=== PATIENT | male | born 1985 | race Hispanic/Latino ===

== ENCOUNTER 2017-07-21 00:02 | Emergency (ER) | payer OTHER ==
[2017-07-21] MEDS ORDERED: NA CHLORIDE 0.9% 1,000 ML ONE (00:10)
[2017-07-21 00:37] LABS: Absolute Lymphocytes (CBC) 3.9 K/uL (0.7-4.9); Absolute Monocytes 0.7 K/uL (0.1-1.3); Absolute Neutrophil 3.7 K/uL (1.8-8.0); Basophils % 0.7 % (0-1.3); Eosinophils % 2.1 % (0-4.4); Hematocrit 41.4 % (39.6-49.0); Lymphocytes % 45.8 % (15.3-44.8); MCH 31.1 pg (27.0-35.0); MCV 90.9 fL (80-100); Monocytes % 7.7 % (3.3-12.3); RBC Red Blood Cell Count 4.56 M/uL (4.33-5.43)
[2017-07-21 00:41] LABS: Barbiturates NEGATIVE; Benzodiazepines NEGATIVE; Cocaine NEGATIVE; METHAMPHETAM NEGATIVE; Opiates NEGATIVE; Phencyclidine NEGATIVE; THC Cannibis POSITIVE
[2017-07-21 00:41] LABS: Urine Blood NEGATIVE (NEG); Urine Glucose NEGATIVE (NEG); Urine Protein 1+ (NEG); Urine Specific Gravity 1.025 (1.005-1.030)
[2017-07-21 00:42] LABS: Protime INR 1.12
[2017-07-21 00:47] LABS: Bicarbonate 29 mEq/L (21-31); Glucose Level 99 mg/dL (65-120); Potassium 3.9 mEq/L (3.6-5.0); Sodium Level 138 mEq/L (135-145)
[2017-07-21 00:54] LABS: ALT/SGPT 13 IU/L (10-60); AST/SGOT 16 IU/L (10-42); Albumin 4.2 g/dL (3.2-5.5); Alkaline Phosphatase 105 IU/L (42-121); BUN Blood Urea Nitrogen 16 mg/dL (6-20); Bilirubin Direct 0.1 mg/dL (0-0.2); Bilirubin Total 0.5 mg/dL (0.3-1.2); Protein, Total 6.9 g/dL (6.0-8.3)
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
--- NOTE | 2017-07-21 01:40 | EDPHYS ---
Physician Documentation [facility] Name: Raheem Feliz Age: 32 yrs Sex: Male : 1985 Arrival Date: 07/21/2017 Time: 00:04 Bed 3 Private MD: ED Physician Feng Alba HPI: 07/21 04:43 This 32 yrs old Male presents to ER via EMS with complaints of Overdose. gs 04:43 The patient presents to the emergency department after a known overdose, that was gs accidental. Context: Method: the patient has a confirmed or suspected ingestion, KEPPRA, SAID FELT BAD LIKE WAS GOING TO HAVE SEIZURE SO KEPT TAKING UNKNOWN AMOUNT OF KEPPRA. Associated signs and symptoms: Pertinent negatives: visual hallucinations, - SUICIDAL IDEATION. Severity of symptoms: At their worst the symptoms were moderate in the emergency department the symptoms are unchanged. The patient has experienced similar episodes in the past, a few times. Historical: - Allergies: 00:11 No Known Allergies; fc - Home Meds: 00:11 Keppra 750 mg Oral tab [Active]; fc - PMHx: 00:11 Hypertension; Seizures; fc - PSHx: 00:11 None; trach; PEG insertion and removal; fc - Immunization history:: Last tetanus immunization: unknown. - Social history:: Smoking status: Patient uses tobacco products, smokes one pack cigarettes per day. Patient uses alcohol, occasionally. Patient/guardian denies using street drugs. ROS: 04:43 All other systems are negative. gs Exam: 04:43 Head/Face: Normocephalic, atraumatic. Eyes: Pupils equal round and reactive to light, gs extra-ocular motions intact. Lids and lashes normal. Conjunctiva and sclera are non-icteric and not injected. Cornea within normal limits. Periorbital areas with no swelling, redness, or edema. ENT: Nares patent. No nasal discharge, no septal abnormalities noted. Tympanic membranes are normal and external auditory canals are clear. Oropharynx with no redness, swelling, or masses, exudates, or evidence of obstruction, uvula midline. Mucous membranes moist. Neck: Trachea midline, no thyromegaly or masses palpated, and no cervical lymphadenopathy. Supple, full range of motion without nuchal rigidity, or vertebral point tenderness. No Meningismus. Chest/axilla: Normal chest wall appearance and motion. Nontender with no deformity. No lesions are appreciated. Cardiovascular: Regular rate and rhythm with a normal S1 and S2. No gallops, murmurs, or rubs. Normal PMI, no JVD. No pulse deficits. Respiratory: Lungs have equal breath sounds bilaterally, clear to auscultation and percussion. No rales, rhonchi or wheezes noted. No increased work of breathing, no retractions or nasal flaring. Abdomen/GI: Soft, non-tender, with normal bowel sounds. No distension or tympany. No guarding or rebound. No evidence of tenderness throughout. Back: No spinal tenderness. No costovertebral tenderness. Full range of motion. Skin: Warm, dry with normal turgor. Normal color with no rashes, no lesions, and no evidence of cellulitis. 04:43 MS/ Extremity: Pulses equal, no cyanosis. Neurovascular intact. Full, normal range of motion. 04:43 Constitutional: The patient appears lethargic. 04:43 ECG was reviewed by the Attending Physician. 04:43 Neuro: Orientation: Not oriented to place, time, Cranial nerves: no acute changes, Motor: moves all fours, strength is 5/5 in all extremities, Sensation: no obvious gross deficits. Vital Signs: 07/20 23:55 BP 148 / 78; Pulse 68; Resp 14; Temp 97.1(A); Pulse Ox 100% on R/A; Weight 86.18 kg fc (R); Height 6 ft. 2 in. (187.96 cm) (R); Pain 0/10; 07/21 00:52 BP 144 / 57; Pulse 68; Resp 16 S; Pulse Ox 100% on R/A; Pain 0/10; jd3 01:40 BP 135 / 85; Pulse 58; Resp 17 S; Pulse Ox 100% on R/A; Pain 0/10; jd3 07/20 23:55 Body Mass Index 24.39 (86.18 kg, 187.96 cm) MDM: 00:05 Patient medically screened. gs 04:43 Differential diagnosis: polypharmacy, over medication, intracranial hemorrhage. Data gs reviewed: vital signs, nurses notes. Response to treatment: the patient's symptoms have resolved after treatment, the patient's condition has returned to base line, the patient is now symptom free, STEADY ON FEET GCS 15, NOW COMPLETELY AWAKE WANTS TO GO NOW FAMILY [place] RISK BENEFITS OF STAYING,LEAVING, AMA, and as a result, I will discharge patient. 07/21 00:06 Order name: Acetaminophen 07/21 00:06 Order name: Basic Metabolic Panel 07/21 00:06 Order name: CBC with Diff; Complete Time: 01:25 07/21 00:06 Order name: ETOH Level 07/21 00:06 Order name: Hepatic Function 07/21 00:06 Order name: PT-INR; Complete Time: 01:25 07/21 00:06 Order name: Salicylate 07/21 00:06 Order name: Urine Drug Screen; Complete Time: 01:25 07/21 00:06 Order name: EKG; Complete Time: 00:07 07/21 00:06 Order name: EKG - Nurse/Tech; Complete Time: 00:12 07/21 00:06 Order name: IV Saline Lock; Complete Time: 00:09 07/21 00:06 Order name: CT Head Brain wo Cont 07/21 00:17 Order name: Urine Dipstick--Ancillary (enter results); Complete Time: 01:25 07/21 00:06 Order name: Labs collected and sent; Complete Time: 00:13 07/21 00:06 Order name: Urine Dipstick-Ancillary (obtain specimen); Complete Time: 00:09 gs EC:43 Rate is 82 beats/min. Rhythm is regular. CO interval is normal. QRS interval is normal. gs T waves are Normal. No ST changes noted. Clinical impression: Normal ECG. Interpreted by me. Administered Medications: 00:09 Drug: NS 0.9% 1000 ml Route: IV; Rate: 1 bolus; Site: right antecubital; lp1 01:58 Follow up: Response: No adverse reaction; IV Status: Completed infusion; IV Intake: jd3 1000ml Disposition: 07/21/17 01:40 Patient has left against medical advice. Impression: Adverse effect of mixed antiepileptics. - Patients states they are going to Home. - Condition is Stable. - Discharge Instructions: Overdose, Accidental. Follow up: Private Physician; When: 2 - 3 days; Reason: Re-evaluation by your physician. - Problem is new. - Symptoms have improved. Signatures: Dispatcher [employer] EDMS Freedman Page, RN RN fc Elvia Shepard RN RN lp1 Feng Alba MD MD Jefry Canchola RN RN jd3
[2017-07-21 03:47] LABS: Salicylates Level < 4.0 mg/dl (<30)
[2017-07-21 03:48] LABS: Alcohol Serum/Plasma < 10 mg/dl
--- NOTE | 2017-07-21 09:14 | EKG ---
Test Date: 2017-07-21 Test Time: 00:54:37 Electronic Scanner Operator: SIVAKUMAR MEASUREMENT RESULTS: Intervals: Rate: 82 MT: 158 QRSD: 82 QT: 366 QTc: 427 [place]: P: 79 MT: 158 QRS: 91 T: 68 INTERPRETIVE STATEMENTS: Normal sinus rhythm Rightward axis Borderline ECG Compared to ECG 07/21/2017 00:54:09 Right-axis deviation now present Electronically Signed On 07-21-17 09:13:42 CDT by Mike Laughlin
--- NOTE | 2017-07-21 09:14 | RAD REPORT ---
EXAM DESCRIPTION: CT - Head Brain Wo Cont - 07/21/2017 8:19 am CLINICAL HISTORY: Coma/unresponsive COMPARISON: May 2016 TECHNIQUE: Computed axial tomography of the head was obtained. IV contrast was not requested. A prel iminary report was generated by [employer] and reviewed prior to this dictation All CT scans are performed using dose optimization technique as appropriate and may include automated exposure control or mA/KV adjustment according to patient size. FINDINGS: An intracranial bleed is not seen . The ventricles are normal in caliber. No extra-axial fluid collection is noted. Fluid within the sinuses/ mastoids is not seen. IMPRESSION: No acute intracranial abnormality is seen. If patient's symptoms persist MRI of the bra in would be recommended.
--- NOTE | 2017-07-21 09:15 | EKG ---
Test Date: 2017-07-21 Test Time: 00:54:09 Aircraft Seat Upholsterer: SIVAKUMAR MEASUREMENT RESULTS: Intervals: Rate: 74 ND: 160 QRSD: 76 QT: 376 QTc: 417 [place]: P: ND: 160 QRS: 85 T: 65 INTERPRETIVE STATEMENTS: Normal sinus rhythm Normal ECG Compared to ECG 06/03/2017 11:32:36 No significant changes Electronically Signed On 07-21-17 09:13:43 CDT by Mike Laughlin
== END 2017-07-21 01:58 | disposition left against medical advice (07) ==
LOC: ER 00:02
DX: T42.6X5A Adverse effect of other antiepileptic and sedative-hypnotic drugs, initial encounter (principal); Y92.009 Unspecified place in unspecified non-institutional (private) residence as the place of occurrence of the external cause; I10 Essential (primary) hypertension; F17.210 Nicotine dependence, cigarettes, uncomplicated
CPT/HCPCS: 36415; 70450; 80048; 80076; 80307; 80320; 80329; 81003; 85025; 85610; 93005; 96360; 96361; 99291; 99292; J7030

== ENCOUNTER 2017-09-29 10:54 | Emergency (ER) | payer OTHER ==
[2017-09-29] MEDS ORDERED: LORazepam 2 MG/ML VIAL ONE (11:37)
[2017-09-29] MEDS ORDERED: NA CHLORIDE 0.9% 1,000 ML ONE (11:37)
[2017-09-29 12:12] LABS: Absolute Lymphocytes (CBC) 1.6 K/uL (0.7-4.9); Absolute Monocytes 0.4 K/uL (0.1-1.3); Absolute Neutrophil 6.2 K/uL (1.8-8.0); Basophils % 0.5 % (0-1.3); Eosinophils % 0.2 % (0-4.4); Hematocrit 43.6 % (39.6-49.0); MCH 30.3 pg (27.0-35.0); MCV 91.1 fL (80-100); MPV 7.9 fL (7.6-11.3); Monocytes % 4.6 % (3.3-12.3); RBC Red Blood Cell Count 4.79 M/uL (4.33-5.43)
[2017-09-29 12:16] LABS: Protime INR 1.13
[2017-09-29 12:22] LABS: ALT/SGPT 27 U/L (12-78); AST/SGOT 27 U/L (15-37); Albumin 4.5 g/dL (3.4-5.0); Alkaline Phosphatase 132 U/L (45-117); BUN Blood Urea Nitrogen 17 mg/dL (7-18); Bicarbonate 29 mmol/L (21-32); Bilirubin Direct 0.2 mg/dL (0-0.2); CKMB Creatine Kinase MB 1.3 ng/mL (0.3-3.6); Creatine Phosphokinase 292 U/L (39-308); Glucose Level 83 mg/dL (74-106); NT PRO-BNP 74 pg/mL (<125); Protein, Total 7.7 g/dL (6.4-8.2); Sodium Level 136 mmol/L (136-145)
--- NOTE | 2017-09-29 12:32 | RAD REPORT ---
EXAM DESCRIPTION: CT - Head Brain Wo Cont - 09/29/2017 12:17 pm CLINICAL HISTORY: Head injury with head pain COMPARISON: July 2017 TECHNIQUE: Computed axial tomography of the head was obtained. IV contrast was not requested. All CT scans are performed using dose optimization technique as appropriate and may include automated exposure control or mA/KV adjustment according to patient size. FINDINGS: Mild frontal scalp swelling is present without visualization of a skull fracture. An intracranial bleed is not seen . The ventricles are normal in caliber. No extra-axial fluid collection is noted. Fluid within the sinuses/ mastoids is not seen. IMPRESSION: No acute intracranial abnormality is seen. If patient's symptoms persist MRI of the bra in would be recommended.
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
--- NOTE | 2017-09-29 12:40 | EDPHYS ---
Physician Documentation [facility] Name: Raheem Feliz Age: 32 yrs Sex: Male : 1985 Arrival Date: 09/29/2017 Time: 10:59 Bed 7 Private MD: ED Physician Cholo Méndez HPI: 09/29 11:10 This 32 yrs old Male presents to ER via Law Enforcement with complaints of kav Head Injury Without LOC-Adult. 11:38 The patient or guardian reports tenderness. The complaints affect the left side of the kav back of head, right frontal area and right side of the back of head. Context of injury: The problem was sustained at time of arrest, resulted from "...being hand cuffed and arrested". Onset: The symptoms/episode began/occurred acutely, 1 day(s) ago. Associated signs and symptoms: Loss of consciousness: This patient experience a loss of consciousness, that was brief, for an unknown period of time, Pertinent positives: loss of conciousness, headache, nausea, Pertinent negatives: double vision, neck pain, seizure, generalized weakness. Severity of symptoms: At their worst the symptoms were moderate, just prior to arrival, this morning. The patient has not experienced similar symptoms in the past. The patient has not recently seen a physician. Patient presents to ED accompanied by [place] [employer]. He reports "...1. scalp tenderness 2. + LOC when hand-cuffed and arrested". 11:45 Patient reports PMHX: HTN and Seizures. Check with [facility] reveals that patient bienvenido has not had prescription filled since August 2017: Keppra and Lisinopril 20 mg po q daily. Historical: - Allergies: 11:05 No Known Allergies; aa5 - Home Meds: 11:03 Keppra 750 mg Oral tab 2 times per day [Active]; oxcarbazepine 300 mg oral tab 1 tab 2 iw times per day [Active]; lisinopril 20 mg Oral tab 1 tab once daily [Active]; - PMHx: 11:05 Hypertension; Seizures; "I was in a coma for about 6 months"; aa5 - PSHx: 11:05 None; PEG insertion and removal; tracheostomy reversal; aa5 - Immunization history:: Adult Immunizations unknown. - Social history:: Smoking status: Patient uses tobacco products, smokes one pack cigarettes per day. - Ebola Screening: : No symptoms or risks identified at this time. - Family history:: not pertinent. - Hospitalizations: : No recent hospitalization is reported. - History obtained from: Jayy PATTEN. ROS: 11:45 Constitutional: Negative for fever, chills, and weight loss, Eyes: Negative for injury, kav pain, redness, and discharge, ENT: Negative for injury, pain, and discharge, Neck: Negative for injury, pain, and swelling, Cardiovascular: Negative for chest pain, palpitations, and edema, Respiratory: Negative for shortness of breath, cough, wheezing, and pleuritic chest pain, Abdomen/GI: Negative for abdominal pain, nausea, vomiting, diarrhea, and constipation, Back: Negative for injury and pain, : Negative for injury, bleeding, discharge, and swelling, MS/Extremity: Negative for injury and deformity, Skin: Negative for injury, rash, and discoloration, Psych: Negative for depression, anxiety, suicide ideation, homicidal ideation, and hallucinations, Allergy/Immunology: Negative for hives, rash, and allergies, Endocrine: Negative for neck swelling, polydipsia, polyuria, polyphagia, and marked weight changes, Hematologic/Lymphatic: Negative for swollen nodes, abnormal bleeding, and unusual bruising. 11:45 Neuro: Positive for headache. Exam: 11:45 Constitutional: This is a well developed, well nourished patient who is awake, alert, kav and in no acute distress. Head/Face: Normocephalic, atraumatic. Eyes: Pupils equal round and reactive to light, extra-ocular motions intact. Lids and lashes normal. Conjunctiva and sclera are non-icteric and not injected. Cornea within normal limits. Periorbital areas with no swelling, redness, or edema. ENT: Nares patent. No nasal discharge, no septal abnormalities noted. Tympanic membranes are normal and external auditory canals are clear. Oropharynx with no redness, swelling, or masses, exudates, or evidence of obstruction, uvula midline. Mucous membranes moist. Neck: Trachea midline, no thyromegaly or masses palpated, and no cervical lymphadenopathy. Supple, full range of motion without nuchal rigidity, or vertebral point tenderness. No Meningismus. Chest/axilla: Normal chest wall appearance and motion. Nontender with no deformity. No lesions are appreciated. Cardiovascular: Regular rate and rhythm with a normal S1 and S2. No gallops, murmurs, or rubs. Normal PMI, no JVD. No pulse deficits. Respiratory: Lungs have equal breath sounds bilaterally, clear to auscultation and percussion. No rales, rhonchi or wheezes noted. No increased work of breathing, no retractions or nasal flaring. Abdomen/GI: Soft, non-tender, with normal bowel sounds. No distension or tympany. No guarding or rebound. No evidence of tenderness throughout. Back: No spinal tenderness. No costovertebral tenderness. Full range of motion. Skin: Warm, dry with normal turgor. Normal color with no rashes, no lesions, and no evidence of cellulitis. MS/ Extremity: Pulses equal, no cyanosis. Neurovascular intact. Full, normal range of motion. Psych: Awake, alert, with orientation to person, place and time. Behavior, mood, and affect are within normal limits. 11:45 Neuro: Exam negative for acute changes, focal neuro deficits, motor deficits, sensory deficits, cerebellar deficits. Vital Signs: 11:05 BP 157 / 82; Pulse 87; Resp 16 S; Temp 98.6(O); Pulse Ox 98% on R/A; Weight 90.72 kg aa5 (R); Height 6 ft. 2 in. (187.96 cm) (R); Pain 8/10; 12:00 BP 154 / 80; Pulse 88; Resp 16 S; Pulse Ox 98% on R/A; aa5 12:55 BP 150 / 80; Pulse 85; Resp 16 S; Pulse Ox 99% on R/A; aa5 11:05 Body Mass Index 25.68 (90.72 kg, 187.96 cm) aa5 Fela Coma Score: 11:38 Eye Response: spontaneous(4). Verbal Response: oriented(5). Motor Response: obeys [facility] commands(6). Total: 15. MDM: 11:10 Medical screening is not applicable. [facility] 12:47 Data reviewed: vital signs, nurses notes, lab test result(s), EKG, radiologic studies, kav CT scan. 09/29 11:31 Order name: Basic Metabolic Panel [facility] 09/29 11:31 Order name: CBC with Diff; Complete Time: 12:36 09/29 12:36 Interpretation: Normal except: SERAFIN% 74.7. 09/29 11:31 Order name: Ckmb; Complete Time: 12:37 v 09/29 12:37 Interpretation: Within normal limits. 09/29 11:31 Order name: CPK; Complete Time: 12:37 v 09/29 12:37 Interpretation: Within normal limits. 09/29 11:31 Order name: LFT's; Complete Time: 12:36 v 09/29 12:36 Interpretation: Normal except: ALK 132. 09/29 11:31 Order name: Magnesium; Complete Time: 12:36 v 09/29 12:36 Interpretation: Within normal limits. 09/29 11:31 Order name: NT PRO-BNP; Complete Time: 12:36 v 09/29 12:36 Interpretation: Within normal limits. 09/29 11:31 Order name: PT-INR; Complete Time: 12:37 v 09/29 12:37 Interpretation: Normal except: PT 13.3. 09/29 11:31 Order name: Ptt, Activated; Complete Time: 12:36 09/29 12:36 Interpretation: Within normal limits. 09/29 11:31 Order name: Troponin (emerg Dept Use Only); Complete Time: 12:33 09/29 12:33 Interpretation: Within normal limits. 09/29 11:31 Order name: XRAY Chest (1 view) 09/29 11:31 Order name: CT Head Brain wo Cont; Complete Time: 12:35 v 09/29 12:35 Interpretation: Abnormal. 09/29 11:31 Order name: Basic Metabolic Panel; Complete Time: 12:32 EDMS 09/29 12:32 Interpretation: Within normal limits. 09/29 11:31 Order name: EKG; Complete Time: 11:32 v 09/29 11:31 Order name: Cardiac monitoring; Complete Time: 11:33 v 09/29 11:31 Order name: EKG - Nurse/Tech; Complete Time: 11:58 v 09/29 11:31 Order name: IV Saline Lock; Complete Time: 11:58 v 09/29 11:31 Order name: Labs collected and sent; Complete Time: 11:58 09/29 11:31 Order name: O2 Per Protocol; Complete Time: 11:33 kav 09/29 11:31 Order name: O2 Sat Monitoring; Complete Time: 11:33 kav Administered Medications: 11:50 Drug: NS 0.9% 1000 ml Route: IV; Rate: 1000 ml; Site: right antecubital; aa5 12:30 Follow up: IV Status: Completed infusion aa5 11:50 Drug: Ativan 0.5 mg Route: IVP; Site: right antecubital; aa5 11:55 Follow up: Response: No adverse reaction aa5 Disposition: 13:35 Co-signature as Attending Physician, Cholo Méndez MD I agree with the assessment and kdr plan of care. Disposition: 09/29/17 12:40 Discharged to Home. Impression: Headache, Patient's other noncompliance with medication regimen, Essential (primary) hypertension. - Condition is Stable. - Discharge Instructions: Hypertension, Hgfm-em-Sbow, How to Take Your Blood Pressure, Hehy-hu-Hlzo, DASH Eating Plan, Managing Your High Blood Pressure. - Prescriptions for Lisinopril 20 mg Oral Tablet - take 1 tablet by ORAL route once daily; 20 tablet. - Medication Reconciliation Form, Thank You Letter form. - Follow up: Private Physician; When: 5 - 6 days; Reason: If symptoms return, Recheck today's complaints, Continuance of care, Re-evaluation by your physician. - Problem is new. - Symptoms have improved. - Notes: f[facility]u [facility] for further evaluation and treatment of reported seizure disorder you are being discharged with your anti-hypertensive medication: Lisinopril 20 mg po q daily patient has not picked up HTN med or Seizure Disorder medications since July from [facility] discussed this plan with the Hot Knife Foxing Cutter, Dr. Méndez and he is in agreement with this plan of care Signatures: Dispatcher [employer] EDMS Cholo Méndez MD MD kdr Vern, Katherine, CASING IN LINE SETTER CASING IN LINE SETTER Hawa Morillo, Marielena Lloyd RN, RN RN aa5 Corrections: (The following items were deleted from the chart) 12:36 12:35 No acute disease. [facility] 13:12 12:40 09/29/2017 12:40 Discharged to Home. Impression: Headache; Patient's other aa5 noncompliance with medication regimen; Essential (primary) hypertension. Condition is Stable. Forms are Medication Reconciliation Form, Thank You Letter, Antibiotic Education, Prescription Opioid Use. Follow up: Private Physician; When: 5 - 6 days; Reason: If symptoms return, Recheck today's complaints, Continuance of care, Re-evaluation by your physician. Problem is new. Symptoms have improved. kav
--- NOTE | 2017-09-29 12:57 | RAD REPORT ---
[facility]50 [facility] CLINICAL HISTORY: Chest pain COMPARISON: June 2017 FINDINGS: The lung bases are not included in the field of view and are not evaluated. The visualized lungs appear clear of acute infiltrate. The heart is normal size IMPRESSION: No acute abnormalities displayed
--- NOTE | 2017-09-30 06:26 | EKG ---
Test Date: 2017-09-29 Test Time: 11:45:44 Human Intelligence: MEASUREMENT RESULTS: Intervals: Rate: 84 NC: 144 QRSD: 80 QT: 344 QTc: 406 [place]: P: 74 NC: 144 QRS: 95 T: 68 INTERPRETIVE STATEMENTS: Normal sinus rhythm Rightward axis Borderline ECG Compared to ECG 07/21/2017 00:54:37 No significant changes Electronically Signed On 09-30-17 06:25:38 CDT by Teddy Small
== END 2017-09-29 13:12 | disposition home or self-care (01) ==
LOC: ER 10:54
DX: Z91.14 Patient's other noncompliance with medication regimen (principal); I10 Essential (primary) hypertension; F17.210 Nicotine dependence, cigarettes, uncomplicated; G40.909 Epilepsy, unspecified, not intractable, without status epilepticus
CPT/HCPCS: 36415; 70450; 71045; 80048; 80076; 82550; 82553; 83735; 83880; 84484; 85025; 85610; 85730; 93005; 96361; 96374; 99284; J7030

== ENCOUNTER 2018-11-12 23:09 | Emergency (ER) | payer OTHER ==
--- OUTSIDE RECORDS SUMMARY | 2018-11-12 23:10 | XMS REPORT ---
:1985 [facility] [address] [place] [address] Care Team Providers Name Role Phone Unavailable Unavailable Unavailable Problems This patient has no known problems. Allergies, Adverse Reactions, Alerts This patient has no known allergies or adverse reactions. Medications This patient has no known medications.
[2018-11-12] MEDS ORDERED: TETANUS & DIPHTHERIA TOX,ADULT 0.5 ML VIAL ONE (23:44)
--- NOTE | 2018-11-13 00:19 | ER ---
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 redness noted to lower right leg with slight swelling. Transition of care: patient was not received from another setting of care. Complicating Factors: There are no complicating factors for this patient. Onset of symptoms is unknown. Risk Assessment: Do you want to hurt yourself or someone else? Patient reports no desire to harm self or others. Initial Sepsis Screen: Does the patient meet any 2 criteria? No. Patient's initial sepsis screen is negative. Does the patient have a suspected source of infection? Yes: Skin breakdown/wound. Care prior to arrival: None. 23:20 Method Of Arrival: Ambulatory ak1 23:20 Acuity: BIBI 3 ak1 Triage Assessment: 23:23 General: Appears in no apparent distress. Behavior is calm, cooperative. Pain: Denies ak1 pain. EENT: No signs and/or symptoms were reported regarding the EENT system. Neuro: Level of Consciousness is awake, alert, obeys commands, Oriented to person, place, time, situation, Shank Pinner are equal bilaterally Moves all extremities. Gait is steady, Speech is normal, Facial symmetry appears normal. Cardiovascular: No deficits noted. Respiratory: No deficits noted. GI: No signs and/or symptoms were reported involving the gastrointestinal system. : No signs and/or symptoms were reported regarding the genitourinary system. Derm: Skin healing lac to right lower leg Skin is red, Skin temperature is warm Wound noted right meza. Musculoskeletal: No signs and/or symptoms reported regarding the musculoskeletal system. Injury Description: Laceration sustained to right meza is jagged, was sustained 2 days ago. Historical: - Allergies: 23:23 No Known Allergies; ak1 - Home Meds: 23:23 Keppra 750 mg Oral tab 2 times per day [Active]; lisinopril 20 mg Oral tab 1 tab once ak1 daily [Active]; oxcarbazepine 300 mg Oral tab 1 tab 2 times per day [Active]; - PMHx: 23:23 "I was in a coma for about 6 months"; Hypertension; Seizures; ak1 - PSHx: 23:23 None; PEG insertion and removal; tracheostomy reversal; ak1 - Immunization history:: Adult Immunizations unknown, Last tetanus immunization: unknown. - Social history:: Smoking status: Patient uses tobacco products, smokes one-half pack cigarettes per day. - Ebola Screening: : No symptoms or risks identified at this time. Screenin:27 Abuse screen: Denies threats or abuse. Denies injuries from another. Nutritional ak1 screening: No deficits noted. Tuberculosis screening: No symptoms or risk factors identified. Fall Risk None identified. Assessment: 11/13 00:12 Reassessment: Patient appears in no apparent distress at this time. No changes from ak1 previously documented assessment. Patient and/or family updated on plan of care and expected duration. Pain level reassessed. Patient is alert, oriented x 3, equal unlabored respirations, skin warm/dry/pink. see triage assessment. 00:24 Reassessment: Patient appears in no apparent distress at this time. No changes from ak1 previously documented assessment. Patient and/or family updated on plan of care and expected duration. Pain level reassessed. Patient is alert, oriented x 3, equal unlabored respirations, skin warm/dry/pink. Patient states feeling better. Vital Signs: 11/12 23:20 BP 157 / 81; Pulse 82; Resp 18; Temp 98.5(O); Pulse Ox 100% on R/A; Weight 86.18 kg ak1 (R); Height 6 ft. 1 in. (185.42 cm) (R); Pain 1/10; 11/13 00:25 BP 142 / 83; Pulse 78; Resp 18; Temp 98.0; Pulse Ox 100% on R/A; Pain 0/10; ak1 11/12 23:20 Body Mass Index 25.07 (86.18 kg, 185.42 cm) ak1 ED Course: 11/12 23:13 Patient arrived in ED. ds1 23:20 Dyana Richards, RN is Primary Nurse. ak1 23:20 Arm band placed on Patient placed in an exam room, on a stretcher, on pulse oximetry, ak1 Patient notified of wait time. 23:21 Gautam Wayne NP is PHCP. pm1 23:21 Feng Alba MD is Attending Physician. pm1 23:22 Triage completed. ak1 23:27 Patient has correct armband on for positive identification. Bed in low position. Call ak1 light in reach. Side rails up X 1. Adult w/ patient. Pulse ox on. NIBP on. 08 00:00 X-ray completed. Portable x-ray completed in exam room. Patient tolerated procedure kw well. 00:05 Tib Fib Right XRAY In Process Unspecified. EDMS 00:24 No provider procedures requiring assistance completed. Patient did not have IV access ak1 during this emergency room visit. Administered Medications: 11/12 23:43 Drug: Tetanus-Diphtheria Toxoid Adult 0.5 ml {Oracle Applications Developer: [employer]. Exp: ak1 07/13/2020. Lot #: [id number]. } Route: IM; Site: right deltoid; 11/13 00:19 Follow up: Response: No adverse reaction ak1 00:18 Drug: Doxycycline 100 mg Route: PO; ak1 00:19 Follow up: Response: No adverse reaction ak1 Outcome: 00:17 Discharge ordered by MD. pm1 00:24 Discharged to home ambulatory, with family. ak1 00:24 Condition: good 00:24 Discharge instructions given to patient, family, Instructed on discharge instructions, follow up and referral plans. Demonstrated understanding of instructions, follow-up care, medications, Prescriptions given X 1. 00:26 Patient left the ED. ak1 Signatures: Dispatcher [employer] [facility] Deanne Howell ds1 Edna Esquivel Amber, RN RN ak1 Gautam Wayne, CHARGE OUT CLERK CHARGE OUT CLERK pm1
--- NOTE | 2018-11-13 00:19 | EDPHYS ---
Physician Documentation [facility] Name: Raheem Feliz Age: 33 yrs Sex: Male : 1985 Arrival Date: 11/12/2018 Time: 23:13 Bed 5 Private MD: ED Physician Feng Alba HPI: 11/13 00:00 This 33 yrs old Male presents to ER via Ambulatory with complaints of pm1 Laceration To Right Leg. 00:00 The patient has a laceration related to: in salt water occurred outdoors, and pm1 laceration on oyster bed shells The injury was accidental. The laceration(s) is(are) located on the right meza. Onset: The symptoms/episode began/occurred 2 day(s) ago. Associated signs and symptoms: Pertinent negatives: deformity, heavy bleeding, numbness distal to injury, suspected foreign body, fever. The patient has not experienced similar symptoms in the past. The patient has not recently seen a physician. Historical: - Allergies: 11/12 23:23 No Known Allergies; ak1 - Home Meds: 23:23 Keppra 750 mg Oral tab 2 times per day [Active]; lisinopril 20 mg Oral tab 1 tab once ak1 daily [Active]; oxcarbazepine 300 mg Oral tab 1 tab 2 times per day [Active]; - PMHx: 23:23 "I was in a coma for about 6 months"; Hypertension; Seizures; ak1 - PSHx: 23:23 None; PEG insertion and removal; tracheostomy reversal; ak1 - Immunization history:: Adult Immunizations unknown, Last tetanus immunization: unknown. - Social history:: Smoking status: Patient uses tobacco products, smokes one-half pack cigarettes per day. - Ebola Screening: : No symptoms or risks identified at this time. ROS: 11/13 00:00 Constitutional: Negative for fever, chills, and weight loss, Eyes: Negative for injury, pm1 pain, redness, and discharge, ENT: Negative for injury, pain, and discharge, Neck: Negative for injury, pain, and swelling, Cardiovascular: Negative for chest pain, palpitations, and edema, Respiratory: Negative for shortness of breath, cough, wheezing, and pleuritic chest pain, Abdomen/GI: Negative for abdominal pain, nausea, vomiting, diarrhea, and constipation, Back: Negative for injury and pain. MS/Extremity: Negative for injury and deformity. Neuro: Negative for headache, weakness, numbness, tingling, and seizure. Skin: Positive for laceration(s), of the right meza. Exam: 00:00 Constitutional: This is a well developed, well nourished patient who is awake, alert, pm1 and in no acute distress. Head/Face: Normocephalic, atraumatic. Neck: Trachea midline, no thyromegaly or masses palpated, and no cervical lymphadenopathy. Supple, full range of motion without nuchal rigidity, or vertebral point tenderness. No Meningismus. Chest/axilla: Normal chest wall appearance and motion. Nontender with no deformity. No lesions are appreciated. Cardiovascular: Regular rate and rhythm with a normal S1 and S2. No gallops, murmurs, or rubs. Normal PMI, no JVD. No pulse deficits. Respiratory: Lungs have equal breath sounds bilaterally, clear to auscultation and percussion. No rales, rhonchi or wheezes noted. No increased work of breathing, no retractions or nasal flaring. Abdomen/GI: Soft, non-tender, with normal bowel sounds. No distension or tympany. No guarding or rebound. No evidence of tenderness throughout. Back: No spinal tenderness. No costovertebral tenderness. Full range of motion. 00:00 Skin: Appearance: normal except for affected area, injury, laceration(s), the wound is approximately 5 cm(s), of the right meza, that can be described as linear, without bleeding, Healing with surrounding redness to approximated edges. Vital Signs: 11/12 23:20 BP 157 / 81; Pulse 82; Resp 18; Temp 98.5(O); Pulse Ox 100% on R/A; Weight 86.18 kg ak1 (R); Height 6 ft. 1 in. (185.42 cm) (R); Pain 1/; 11/13 00:25 BP 142 / 83; Pulse 78; Resp 18; Temp 98.0; Pulse Ox 100% on R/A; Pain 0/10; ak1 11/12 23:20 Body Mass Index 25.07 (86.18 kg, 185.42 cm) ak1 MDM: 11/12 23:21 Patient medically screened. pm1 11/13 00:16 Data reviewed: vital signs. Data interpreted: Pulse oximetry: on room air is 100 %. pm1 Interpretation: normal. Counseling: I had a detailed discussion with the patient and/or guardian regarding: the historical points, exam findings, and any diagnostic results supporting the discharge/admit diagnosis, radiology results, the need for outpatient follow up, to return to the emergency department if symptoms worsen or persist or if there are any questions or concerns that arise at home. 11/12 23:36 Order name: Tib Fib Right XRAY pm1 Administered Medications: 11/12 23:43 Drug: Tetanus-Diphtheria Toxoid Adult 0.5 ml {Stage Director: [employer]. Exp: ak1 07/13/2020. Lot #: [id number]. } Route: IM; Site: right deltoid; 11/13 00:19 Follow up: Response: No adverse reaction ak1 00:18 Drug: Doxycycline 100 mg Route: PO; ak1 00:19 Follow up: Response: No adverse reaction ak1 Disposition: 11/13/18 00:17 Discharged to Home. Impression: Laceration without foreign body, right lower leg. - Condition is Stable. - Discharge Instructions: Laceration Care, Adult. - Prescriptions for Doxycycline Hyclate 100 mg Oral Tablet - take 1 tablet by ORAL route every 12 hours; 20 tablet. - Medication Reconciliation Form, Thank You Letter, Antibiotic Education, Prescription Opioid Use form. - Follow up: Emergency Department; When: As needed; Reason: Worsening of condition. Follow up: Private Physician; When: 2 - 3 days; Reason: Recheck today's complaints, Continuance of care, Re-evaluation by your physician. - Problem is new. - Symptoms have improved. Addendum: 11/15/2018 03:22 Co-signature as Attending Physician, Feng Alba MD. g s Signatures: Dispatcher [employer] EDDyana Watson RN RN ak1 Gautam Wayne NP [employer] pm1 Feng Alba MD MD Corrections: (The following items were deleted from the chart) 11/13 00:26 00:17 11/13/2018 00:17 Discharged to Home. Impression: Laceration without foreign body, ak1 right lower leg. Condition is Stable. Forms are Medication Reconciliation Form, Thank You Letter, Antibiotic Education, Prescription Opioid Use. Follow up: Emergency Department; When: As needed; Reason: Worsening of condition. Follow up: Private Physician; When: 2 - 3 days; Reason: Recheck today's complaints, Continuance of care, Re-evaluation by your physician. Problem is new. Symptoms have improved. pm1
[2018-11-13] MEDS ORDERED: DOXYCYCLINE 100 MG CAP PO ONE (00:20)
--- NOTE | 2018-11-13 08:15 | RAD REPORT ---
EXAM DESCRIPTION: RAD - Tib Fib Right - 11/13/2018 12:04 am CLINICAL HISTORY: laceration Pain and swelling to right leg COMPARISON: No comparisons FINDINGS: Mild soft tissue swelling is seen along the medial aspect of the right leg. No fracture or radiopaque foreign body seen.
== END 2018-11-13 00:26 | disposition home or self-care (01) ==
LOC: ER 23:09
DX: S81.811A Laceration without foreign body, right lower leg, initial encounter (principal); W45.8XXA Other foreign body or object entering through skin, initial encounter; Z23 Encounter for immunization; I10 Essential (primary) hypertension; F17.210 Nicotine dependence, cigarettes, uncomplicated
CPT/HCPCS: 90471; 90714; 99284

== ENCOUNTER 2019-07-12 17:36 | Emergency (ER) | payer OTHER ==
--- OUTSIDE RECORDS SUMMARY | 2019-07-12 17:38 | XMS REPORT ---
:1985 Author Organization [facility] t Address [address] [place] [address] Care Team Providers Name Role Phone Unavailable Unavailable Unavailable Problems This patient has no known problems. Allergies, Adverse Reactions, Alerts This patient has no known allergies or adverse reactions. Medications This patient has no known medications.
[2019-07-12 18:22] LABS: Absolute Lymphocytes (CBC) 2.3 K/uL (0.7-4.9); Basophils % 0.3 % (0-1.3); Hematocrit 45.2 % (39.6-49.0); Lymphocytes % 16.7 % (15.3-44.8); MPV 7.6 fL (7.6-11.3); RBC Red Blood Cell Count 4.95 M/uL (4.33-5.43)
[2019-07-12 18:46] LABS: Barbiturates NEGATIVE (NEGATIVE); Benzodiazepines NEGATIVE (NEGATIVE); Cocaine NEGATIVE (NEGATIVE); METHAMPHETAM NEGATIVE (NEGATIVE); Methadone NEGATIVE (NEGATIVE); Opiates NEGATIVE (NEGATIVE); Phencyclidine NEGATIVE (NEGATIVE); THC Cannibis NEGATIVE (NEGATIVE)
[2019-07-12 18:54] LABS: Sodium Level 127 mmol/L (136-145)
[2019-07-12 18:55] LABS: ALT/SGPT 24 U/L (12-78); AST/SGOT 18 U/L (15-37); Albumin 4.1 g/dL (3.4-5.0); Alkaline Phosphatase 108 U/L (45-117); BUN Blood Urea Nitrogen 7 mg/dL (7-18); Bicarbonate 18 mmol/L (21-32); Bilirubin Direct 0.1 mg/dL (0-0.2); Bilirubin Total 0.4 mg/dL (0.2-1.0); Glucose Level 84 mg/dL (74-106); Potassium 3.3 mmol/L (3.5-5.1); Protein, Total 7.6 g/dL (6.4-8.2)
[2019-07-12] MEDS ORDERED: levETIRAcetam 1,000 MG in NA CHLORIDE 0.9% 100 ML IV ONE (19:00)
--- NOTE | 2019-07-12 19:26 | ER ---
Nurse's Notes [facility] Name: Raheem Feliz Age: 34 yrs Sex: Male : 1985 Arrival Date: 07/12/2019 Time: 17:42 Bed 16 Private MD: Diagnosis: Epilepsy and recurrent seizures;Hypo-osmolality and hyponatremia Presentation: 07/11 17:42 Chief complaint: EMS states: Pt was with mother in her car and was a passenger when he ca1 had a seizure. Mother reports 2 seizures within 45 minutes, reports history of seizures but has not had one in 12 years. Takes unknown seizure medications but has ran out of it for a while now. BP 172/82. Temp 98.2, P 102, R 16. Coronavirus screen: Proceed with normal triage. Patient denies a cough. Patient denies shortness of breath or difficulty breathing. Patient denies measured and/or subjective temperature greater than 100.4F prior to today's visit. Patient denies travel on a cruise ship or to a country the [facility] currently lists as an affected area. Patient denies contact with known and/or suspected case of COVID-19. Ebola Screen: Patient negative for fever greater than or equal to 101.5 degrees Fahrenheit, and additional compatible Ebola Virus Disease symptoms Patient denies exposure to infectious person. Patient denies travel to an Ebola-affected area in the 21 days before illness onset. No symptoms or risks identified at this time. Initial Sepsis Screen: Does the patient meet any 2 criteria? No. Patient's initial sepsis screen is negative. Does the patient have a suspected source of infection? No. Patient's initial sepsis screen is negative. Risk Assessment: Do you want to hurt yourself or someone else? Patient reports no desire to harm self or others. Onset of symptoms was July 12, 2019. 17:42 Method Of Arrival: EMS: [facility] ca1 17:42 Acuity: BIBI 3 ca1 Triage Assessment: 17:49 General: Appears in no apparent distress. comfortable, Behavior is calm, cooperative, ca1 appropriate for age. Pain: Denies pain. EENT: No signs and/or symptoms were reported regarding the EENT system. Neuro: Level of Consciousness is awake, alert, obeys commands, Oriented to person, place, situation. Cardiovascular: Heart tones S1 S2 present Capillary refill < 3 seconds Patient's skin is warm and dry. Rhythm is sinus rhythm. Respiratory: Airway is patent Respiratory effort is even, unlabored, Respiratory pattern is regular, symmetrical, Breath sounds are clear bilaterally. GI: Abdomen is round non-distended, Bowel sounds present X 4 quads. Abd is soft and non tender X 4 quads. : No signs and/or symptoms were reported regarding the genitourinary system. Derm: Skin is intact, is healthy with good turgor, Skin is pink, warm \\T\\ dry. Musculoskeletal: Circulation, motion, and sensation intact. Capillary refill < 3 seconds. Historical: - Allergies: 17:49 No Known Allergies; ca1 - PMHx: 17:49 "I was in a coma for about 6 months"; Hypertension; Seizures; ca1 - PSHx: 17:49 PEG insertion and removal; tracheostomy reversal; ca1 - Immunization history:: Adult Immunizations not up to date, Flu vaccine is not up to date. - Social history:: Smoking status: Patient reports the use of cigarette tobacco products, smokes one pack cigarettes per day. Screenin:50 Abuse screen: Denies threats or abuse. Denies injuries from another. Nutritional ca1 screening: No deficits noted. Tuberculosis screening: No symptoms or risk factors identified. Fall Risk Secondary diagnosis (15 points) seizures. Assessment: 17:50 Reassessment: SEE TRIAGE NOTES. ca1 18:50 Reassessment: Patient appears in no apparent distress at this time. No changes from ca1 previously documented assessment. Patient and/or family updated on plan of care and expected duration. Pain level reassessed. Patient is alert, oriented x 3, equal unlabored respirations, skin warm/dry/pink. 19:30 Reassessment: Patient appears in no apparent distress at this time. Patient is alert, ca1 oriented x 3, equal unlabored respirations, skin warm/dry/pink. Vital Signs: 17:42 BP 128 / 75; Pulse 94; Resp 16 S; Temp 98.3(O); Pulse Ox 95% on R/A; Weight 83.01 kg ca1 (R); Height 6 ft. 1 in. (185.42 cm) (R); Pain 0/10; 18:50 BP 128 / 82; Pulse 87; Resp 16 S; Pulse Ox 96% on R/A; ca1 19:30 BP 130 / 77; Pulse 86; Resp 16 S; Pulse Ox 96% on R/A; ca1 17:42 Body Mass Index 24.14 (83.01 kg, 185.42 cm) ca1 Fela Coma Score: 17:49 Eye Response: spontaneous(4). Verbal Response: oriented(5). Motor Response: obeys ca1 commands(6). Total: 15. ED Course: 17:42 Patient arrived in ED. ca1 17:46 Osman Knox PA is PHCP. [facility] 17:46 Cholo Méndez MD is Attending Physician. [facility] 17:47 Triage completed. ca1 17:47 Keira García, YENI is Primary Nurse. ca1 17:49 Arm band placed on right wrist. ca1 17:50 Patient has correct armband on for positive identification. Bed in low position. Call ca1 light in reach. Side rails up X2. Seizure precautions initiated. hall monitor on. Pulse ox on. NIBP on. Warm blanket given. 18:00 1800 seizure pads applied to pt bed. lt1 18:00 No provider procedures requiring assistance completed. Maintain EMS IV. Dressing ca1 intact. Good blood return noted. Site clean \\T\\ dry. Gauge \\T\\ site: G22 LFA. 18:04 Initial lab(s) drawn, by me, sent to lab. Urine collected: clean catch specimen, clear. lt1 19:25 Trev Jang MD is Hospitalizing Provider. [facility] 19:46 IV discontinued, intact, bleeding controlled, No redness/swelling at site. Pressure ca1 dressing applied. Administered Medications: 18:47 Drug: Keppra 1000 mg Route: IV; Rate: calculated rate; Site: right forearm; ca1 19:10 Follow up: Response: No adverse reaction; IV Status: Completed infusion ca1 Outcome: 19:25 Decision to Hospitalize by Provider. [facility] 19:46 AMA AMA form signed [facility] 19:46 Condition: improved 19:52 Patient left the ED. ca1 Signatures: Osman Knox PA PA [facility] Keira García, RN RN ca1 Lamar Mercado lt1
--- NOTE | 2019-07-12 19:26 | EDPHYS ---
Physician Documentation [facility] Name: Raheem Feliz Age: 34 yrs Sex: Male : 1985 Arrival Date: 07/12/2019 Time: 17:42 Bed 16 Private MD: ED Physician Cholo Méndez HPI: 07/11 17:46 This 34 yrs old Male presents to ER via EMS with complaints of Seizure. [facility] 17:46 The patient presents after having a single isolated seizure. Character of seizure(s): jmm Loss of consciousness: the patient experienced loss of consciousness, Motor activity: generalized, Incontinence: none, Apnea: the patient did not experience apnea. Seizure onset: just prior to arrival. Seizure Hx: Seizure medications: Keppra. Associated injury: The patient did not suffer any apparent associated injury. Patient states he has not recently taken his medication. Patient states taking keppra and another unknown medications. . Historical: - Allergies: 17:49 No Known Allergies; ca1 - PMHx: 17:49 "I was in a coma for about 6 months"; Hypertension; Seizures; ca1 - PSHx: 17:49 PEG insertion and removal; tracheostomy reversal; ca1 - Immunization history:: Adult Immunizations not up to date, Flu vaccine is not up to date. - Social history:: Smoking status: Patient reports the use of cigarette tobacco products, smokes one pack cigarettes per day. ROS: 17:46 Constitutional: Negative for fever, chills, and weight loss, Cardiovascular: Negative jmm for chest pain, palpitations, and edema, Respiratory: Negative for shortness of breath, cough, wheezing, and pleuritic chest pain, Abdomen/GI: Negative for abdominal pain, nausea, vomiting, diarrhea, and constipation. 17:46 Neuro: Positive for seizure activity. 17:46 All other systems are negative. Exam: 17:46 Constitutional: This is a well developed, well nourished patient who is awake, alert, jmm and in no acute distress. Head/Face: atraumatic. Eyes: EOMI, no conjunctival erythema appreciated ENT: Moist Mucus Membranes Neck: Trachea midline, Supple Chest/axilla: Normal chest wall appearance and motion. Cardiovascular: Regular rate and rhythm. No edema appreciated Respiratory: Normal respirations, no respiratory distress appreciated Abdomen/GI: Non distended, soft Back: Normal ROM Skin: General appearance color normal MS/ Extremity: Moves all extremities, no obvious deformities appreciated, no edema noted to the lower extremities Neuro: Awake and alert, normal gait Psych: Behavior is normal, Mood is normal, Patient is cooperative and pleasant Vital Signs: 17:42 BP 128 / 75; Pulse 94; Resp 16 S; Temp 98.3(O); Pulse Ox 95% on R/A; Weight 83.01 kg ca1 (R); Height 6 ft. 1 in. (185.42 cm) (R); Pain 0/10; 18:50 BP 128 / 82; Pulse 87; Resp 16 S; Pulse Ox 96% on R/A; ca1 19:30 BP 130 / 77; Pulse 86; Resp 16 S; Pulse Ox 96% on R/A; ca1 17:42 Body Mass Index 24.14 (83.01 kg, 185.42 cm) ca1 Fela Coma Score: 17:49 Eye Response: spontaneous(4). Verbal Response: oriented(5). Motor Response: obeys ca1 commands(6). Total: 15. MDM: 18:10 Patient medically screened. [facility] 19:24 Data reviewed: vital signs, nurses notes. Counseling: I had a detailed discussion with [facility] the patient and/or guardian regarding: the historical points, exam findings, and any diagnostic results supporting the discharge/admit diagnosis, lab results, the need for further work-up and treatment in the hospital. ED course: I discussed the patient with Dr. Jang whom accepted admission. . 19:24 Refusal of service: The patient/guardian displays adequate decision making capability [facility] and despite a detailed discussion of alternatives, benefits, risks, and consequences refuses: Admission to the hospital for further work-up and treatment. 07/11 17:46 Order name: Acetaminophen; Complete Time: 19:01 [facility] 07/11 17:46 Order name: Basic Metabolic Panel; Complete Time: 19:01 [facility] 07/11 17:46 Order name: CBC with Diff; Complete Time: 18:28 [facility] 07/11 17:46 Order name: ETOH Level; Complete Time: 19:01 [facility] 07/11 17:46 Order name: Hepatic Function; Complete Time: 19:01 [facility] 07/11 17:46 Order name: PT-INR; Complete Time: 19:38 [facility] 07/11 17:46 Order name: Ptt, Activated; Complete Time: 19:38 [facility] 07/11 17:46 Order name: Salicylate; Complete Time: 19:01 [facility] 07/11 17:46 Order name: Urine Drug Screen; Complete Time: 19:01 [facility] 07/11 17:46 Order name: EKG; Complete Time: 17:47 [facility] 07/11 17:46 Order name: EKG - Nurse/Tech; Complete Time: 19:13 [facility] 07/11 17:46 Order name: IV Saline Lock; Complete Time: 18:19 [facility] 07/11 18:15 Order name: Urine Dipstick--Ancillary (enter results); Complete Time: 19:38 07/11 17:46 Order name: Labs collected and sent; Complete Time: 18:19 [facility] 07/11 17:46 Order name: Urine Dipstick-Ancillary (obtain specimen); Complete Time: 18:19 [facility] 07/11 18:34 Order name: Labs - recollect needed: blue top recollect; Complete Time: 19:01 Administered Medications: 18:47 Drug: Keppra 1000 mg Route: IV; Rate: calculated rate; Site: right forearm; ca1 19:10 Follow up: Response: No adverse reaction; IV Status: Completed infusion ca1 Disposition: 07/12 09:50 Co-signature as Attending Physician, Cholo Méndez MD I agree with the assessment and kdr plan of care. Disposition: 07/12/19 19:52 Patient has left against medical advice. Impression: Epilepsy and recurrent seizures, Hypo-osmolality and hyponatremia. - Patients states they are going to Home. - Condition is Stable. Follow up: Private Physician; When: 2 - 3 days; Reason: Recheck today's complaints, Continuance of care, Re-evaluation by your physician. - Problem is new. - Symptoms have improved. Signatures: Dispatcher [employer] EDMS Cholo Méndez MD MD kdr Mickail, Joel, PA PA jmm Botello, Elizabeth eb Acob, Cheryl, RN RN ca1 Corrections: (The following items were deleted from the chart) 07/11 19:52 19:25 Hospitalization Ordered by Trev Jang MD for Observation. Preliminary jmm diagnosis is Epilepsy and recurrent seizures; Hypo-osmolality and hyponatremia. Bed requested for Telemetry/MedSurg (observation). Status is Observation. Condition is Stable. Problem is new. Symptoms have improved. [facility] 19:52 19:52 07/12/2019 19:52 Patients has left against medical advice. Impression: Epilepsy ca1 and recurrent seizures; Hypo-osmolality and hyponatremia. Patient states they are going to Home. Condition is Stable. Follow up: Private Physician; When: 2 - 3 days; Reason: Recheck today's complaints, Continuance of care, Re-evaluation by your physician. Problem is new. Symptoms have improved. [facility]
[2019-07-12 19:36] LABS: Urine Blood 2+ (NEG); Urine Glucose NEGATIVE (NEG); Urine Protein 1+ (NEG); Urine Specific Gravity 1.025 (1.005-1.030)
[2019-07-12 19:36] LABS: Protime INR 1.06
[2019-07-12] MEDS ORDERED: ACETAMINOPHEN 500 MG TAB PO PRN (19:50)
[2019-07-12] MEDS ORDERED: MORPHINE 2 MG/ML SYR IV PRN (19:50)
[2019-07-12] MEDS ORDERED: LORazepam 2 MG/ML VIAL IV PRN (19:50)
[2019-07-12] MEDS ORDERED: ONDANSETRON 4 MG/2 ML VIAL IV PRN (19:50)
[2019-07-12 19:58] VITALS: TEMP 98.3
[2019-07-12 19:59] VITALS: O2SAT 96
[2019-07-12 20:00] VITALS: BP 130/77
[2019-07-12] MEDS ORDERED: NA CHLORIDE 0.9% 1,000 ML IV SCH (20:00)
--- OUTSIDE RECORDS SUMMARY | 2019-07-12 20:15 | XMS REPORT ---
:1985 Author Organization [facility] t Address [address] [place] [address] Care Team Providers Name Role Phone Unavailable Unavailable Unavailable Problems This patient has no known problems. Allergies, Adverse Reactions, Alerts This patient has no known allergies or adverse reactions. Medications This patient has no known medications.
[2019-07-12] MEDS ORDERED: PHENYTOIN ER 100 MG CAP PO SCH (21:00)
[2019-07-13] MEDS ORDERED: levETIRAcetam 1,000 MG in NA CHLORIDE 0.9% 100 ML IV SCH (04:00)
--- NOTE | 2019-07-13 07:36 | EKG ---
Test Date: 2019-07-12 Test Time: 18:36:57 Water Filtration Technician: AMY MEASUREMENT RESULTS: Intervals: Rate: 83 FL: 168 QRSD: 82 QT: 346 QTc: 406 Donnellson: P: 62 FL: 168 QRS: 91 T: 39 INTERPRETIVE STATEMENTS: Normal sinus rhythm Rightward axis Borderline ECG Compared to ECG 09/29/2017 11:45:44 No significant changes Electronically Signed On 07-13-19 07:34:43 CDT by Mike Laughlin
== END 2019-07-12 19:52 | disposition left against medical advice (07) ==
LOC: ER 17:36 → UNDOADMOB 20:13 → ERHOLD 20:13
DX: E87.1 Hypo-osmolality and hyponatremia (principal); F17.210 Nicotine dependence, cigarettes, uncomplicated; I10 Essential (primary) hypertension
CPT/HCPCS: 96365; 93005; 85025; 80048; 36415; 80320; 80329 ×2; 85610; 80076; 80307 ×8; 85730; 81003; 99284; J1953

== ENCOUNTER 2020-04-20 11:46 | Emergency (ER) | payer OTHER ==
--- OUTSIDE RECORDS SUMMARY | 2020-04-20 11:47 | XMS REPORT | Continuity of Care Document ---
:1985 Author Organization [facility] t Address [address] [place] [address] Care Team Providers Name Role Phone Adonis Haque Attending Clinician Doctor Unassigned, Name Attending Clinician Unavailable Problems This patient has no known problems. Allergies, Adverse Reactions, Alerts This patient has no known allergies or adverse reactions. Medications This patient has no known medications. Procedures This patient has no known procedures. Encounters Start End Encounter Admission Attending Care Care Encounter Source Date/Time Date/Time Type Type Clinicians Facility Department ID 2019-08-29 2019-08-[address] [facility] [id number] 22:18:14 00:17:00 Gia Gaitan [id number] [place] [id number] [place] [id number] 2019-08-29 2019-08-29 Orders Doctor SANJEEV [id number] 00:00:00 00:00:00 Only UnassignedKYLIE [id number] [place] [facility] [id number] Results This patient has no known results.
--- NOTE | 2020-04-20 13:55 | EDPHYS ---
Physician Documentation [facility] Name: Raheem Feliz Age: 35 yrs Sex: Male : 1985 Arrival Date: 04/20/2020 Time: 11:48 Bed 24 Private MD: ED Physician Trev Mejia HPI: 04/20 13:52 This 35 yrs old Male presents to ER via Ambulatory with complaints of Finger kb Injury. 13:53 The patient has a laceration related to: falling from a standing position, occurred at [employer] work, and there are no complicating factors. The injury was accidental. The laceration(s) is(are) located on the dorsal aspect of proximal phalanx of right ring finger and dorsal aspect of middle phalanx of right ring finger. Onset: The symptoms/episode began/occurred yesterday. Associated signs and symptoms: The patient has no apparent associated signs or symptoms. The patient has not experienced similar symptoms in the past. The patient has not recently seen a physician. Pt reports he tripped and hit knuckle when he fell. c/o pain, tenderness, laceration, and swelling. Historical: - Allergies: 12:03 No Known Allergies; ll1 - PMHx: 12:03 "I was in a coma for about 6 months"; Hypertension; Seizures; ll1 - PSHx: 12:03 PEG insertion and removal; tracheostomy reversal; ll1 - Immunization history:: Flu vaccine is not up to date. - Social history:: Smoking status: Patient reports the use of cigarette tobacco products, smokes one pack cigarettes per day. ROS: 13:45 Constitutional: Negative for fever, chills, and weight loss, Cardiovascular: Negative kb for chest pain, palpitations, and edema, Respiratory: Negative for shortness of breath, cough, wheezing, and pleuritic chest pain, Abdomen/GI: Negative for abdominal pain, nausea, vomiting, diarrhea, and constipation, Neuro: Negative for headache, weakness, numbness, tingling, and seizure. 13:45 MS/extremity: Positive for decreased range of motion, laceration, pain, swelling, tenderness, of the dorsal aspect of middle phalanx of right ring finger and dorsal aspect of proximal phalanx of right ring finger. 13:45 Skin: Positive for laceration(s), swelling, of the dorsal aspect of middle phalanx of right ring finger and dorsal aspect of proximal phalanx of right ring finger. Exam: 13:49 Constitutional: This is a well developed, well nourished patient who is awake, alert, kb and in no acute distress. Head/Face: Normocephalic, atraumatic. Chest/axilla: Normal chest wall appearance and motion. Nontender with no deformity. No lesions are appreciated. Cardiovascular: Regular rate and rhythm with a normal S1 and S2. No gallops, murmurs, or rubs. Normal PMI, no JVD. No pulse deficits. Respiratory: Lungs have equal breath sounds bilaterally, clear to auscultation and percussion. No rales, rhonchi or wheezes noted. No increased work of breathing, no retractions or nasal flaring. Abdomen/GI: Soft, non-tender, with normal bowel sounds. No distension or tympany. No guarding or rebound. No evidence of tenderness throughout. Neuro: Awake and alert, GCS 15, oriented to person, place, time, and situation. Cranial nerves II-XII grossly intact. Motor strength 5/5 in all extremities. Sensory grossly intact. Cerebellar exam normal. Normal gait. 13:49 Musculoskeletal/extremity: Extremities: grossly normal except: noted in the dorsal aspect of proximal phalanx of right ring finger and dorsal aspect of middle phalanx of right ring finger: decreased ROM, laceration, pain, swelling, tenderness, ROM: limited active range of motion due to pain, in the dorsal aspect of proximal phalanx of right ring finger and dorsal aspect of middle phalanx of right ring finger, Circulation is intact in all extremities. Sensation intact. 13:49 Skin: injury, laceration(s), the wound is approximately 2 cm(s), of the dorsal aspect of proximal phalanx of right ring finger and dorsal aspect of middle phalanx of right ring finger, that can be described as clean, no foreign body, irregular, without bleeding. Vital Signs: 12:03 BP 157 / 80; Pulse 84; Resp 16; Temp 98.0; Pulse Ox 100% ; Weight 90.72 kg; Height 6 ll1 ft. 1 in. (185.42 cm); Pain 10/10; 12:03 Body Mass Index 26.39 (90.72 kg, 185.42 cm) ll1 MDM: 13:41 Patient medically screened. kb 13:45 Data reviewed: vital signs, nurses notes. Data interpreted: Pulse oximetry: on room air kb is 100 %. Interpretation: normal. Counseling: I had a detailed discussion with the patient and/or guardian regarding: the historical points, exam findings, and any diagnostic results supporting the discharge/admit diagnosis, radiology results, the need for outpatient follow up, a family practitioner, to return to the emergency department if symptoms worsen or persist or if there are any questions or concerns that arise at home. 04/20 13:03 Order name: Hand Right 3 View XRAY kb 04/20 13:45 Order name: Wound Care; Complete Time: 13:53 kb 04/20 13:45 Order name: Wound dressing; Complete Time: 14:34 kb Administered Medications: 13:52 Drug: [place] (7.5 mg-325 mg) 1 tabs {Note: rass 0.} Route: PO; ll1 14:34 Follow up: Response: No adverse reaction hb 13:52 Drug: Bactrim (160 mg-800 mg (DS) 1 tablet Route: PO; ll1 14:34 Follow up: Response: No adverse reaction hb 13:58 Drug: Tetanus-Diphtheria Toxoid Adult 0.5 ml {Ventilation Mechanic: [employer]. Exp: ll1 07/19/2021. Lot #: [id number]. } Route: IM; Site: left deltoid; 14:34 Follow up: Response: No adverse reaction hb Disposition: 17:08 Co-signature as Attending Physician, Trev Mejia MD. ma2 Disposition: 04/20/20 13:55 Discharged to Home. Impression: Laceration without foreign body of right ring finger without damage to nail. - Condition is Stable. - Discharge Instructions: Nonsutured Laceration Care, Laceration Care, Adult, [id number]. - Prescriptions for Bactrim DS 800- 160 mg Oral Tablet - take 1 tablet by ORAL route every 12 hours for 10 days; 20 tablet. - Medication Reconciliation Form, Thank You Letter, Antibiotic Education, Prescription Opioid Use form. - Follow up: Private Physician; When: 2 - 3 days; Reason: Recheck today's complaints, Continuance of care, Re-evaluation by your physician. Follow up: Emergency Department; When: As needed; Reason: Worsening of condition. Signatures: Dispatcher [employer] EDMS Carol Cox, SANDSTONE INSPECTOR REPAIRER-C SANDSTONE INSPECTOR REPAIRER-Ckb Erika Maldonado, RN RN hb Trev Mejia MD MD ma2 Montserrat Lilly RN RN ll1 Corrections: (The following items were deleted from the chart) 14:35 13:55 04/20/2020 13:55 Discharged to Home. Impression: Laceration without foreign body hb of right ring finger without damage to nail. Condition is Stable. Forms are Medication Reconciliation Form, Thank You Letter, Antibiotic Education, Prescription Opioid Use. Follow up: Private Physician; When: 2 - 3 days; Reason: Recheck today's complaints, Continuance of care, Re-evaluation by your physician. Follow up: Emergency Department; When: As needed; Reason: Worsening of condition. kb
--- NOTE | 2020-04-20 13:55 | ER ---
Nurse's Notes [facility] Name: Raheem Feliz Age: 35 yrs Sex: Male : 1985 Arrival Date: 04/20/2020 Time: 11:48 Bed 24 Private MD: Diagnosis: Laceration without foreign body of right ring finger without damage to nail Presentation: 04/20 12:03 Chief complaint: Patient states: Tripped yesterday at 1700 while working. R hand 4th ll1 digit knuckle pain with <2 cm laceration. Site is painful and oozing small amount of yellow liquid. Loose dressing applied over cut. Coronavirus screen: Client denies travel out of the [place] in the last 14 days. At this time, the client does not indicate any symptoms associated with coronavirus-19. Ebola Screen: Patient denies travel to an Ebola-affected area in the 21 days before illness onset. Initial Sepsis Screen: Does the patient meet any 2 criteria? No. Patient's initial sepsis screen is negative. Does the patient have a suspected source of infection? Yes: Skin breakdown/wound. Risk Assessment: Do you want to hurt yourself or someone else? Patient reports no desire to harm self or others. Onset of symptoms was April 19, 2020. 12:03 Method Of Arrival: Ambulatory 1 12:03 Acuity: BIBI 4 ll1 Triage Assessment: 13:45 Injury Description: Bruise Laceration. ll1 Historical: - Allergies: 12:03 No Known Allergies; ll1 - PMHx: 12:03 "I was in a coma for about 6 months"; Hypertension; Seizures; ll1 - PSHx: 12:03 PEG insertion and removal; tracheostomy reversal; ll1 - Immunization history:: Flu vaccine is not up to date. - Social history:: Smoking status: Patient reports the use of cigarette tobacco products, smokes one pack cigarettes per day. Screenin:44 Abuse screen: Denies threats or abuse. Nutritional screening: No deficits noted. ll1 Tuberculosis screening: No symptoms or risk factors identified. Fall Risk None identified. Total Rutledge Fall Scale indicates No Risk (0-24 pts). Assessment: 13:43 General: Appears uncomfortable, Behavior is calm, cooperative, appropriate for age. ll1 Pain: Complains of pain in R hand 4th digit Pain currently is 10 out of 10 on a pain scale. Quality of pain is described as aching, Pain began 1 day ago. Derm: Wound noted R hand 4th digit Reports pain <3 cm laceration oozing laceration to knuckle. Musculoskeletal: Reports pain in R hand 4th digit. Vital Signs: 12:03 BP 157 / 80; Pulse 84; Resp 16; Temp 98.0; Pulse Ox 100% ; Weight 90.72 kg; Height 6 ll1 ft. 1 in. (185.42 cm); Pain 10/10; 12:03 Body Mass Index 26.39 (90.72 kg, 185.42 cm) ll1 ED Course: 11:48 Patient arrived in ED. rg4 12:03 Arm band placed on. ll1 12:05 Triage completed. ll1 13:06 Carol Cox FNP-C is PHCP. kb 13:06 Trev Mejia MD is Attending Physician. kb 13:36 Hand Right 3 View XRAY In Process Unspecified. EDMS 13:42 Montserrat Lilly RN is Primary Nurse. ll1 13:42 Patient placed in an exam room, on a stretcher. ll1 13:45 Patient has correct armband on for positive identification. Bed in low position. Call ll1 light in reach. Side rails up X 1. Cardiac monitoring not applicable on this patient. 14:32 Dressings: Adaptic X 1; right hand and dorsal aspect of proximal phalanx of right ring jp3 finger and dorsal aspect of middle phalanx of right ring finger non-adherent dressing x 1 right hand and dorsal aspect of proximal phalanx of right ring finger and dorsal aspect of middle phalanx of right ring finger wrapped in coban tape. Wound care: to abrasion, located on right hand and dorsal aspect of proximal phalanx of right ring finger and dorsal aspect of middle phalanx of right ring finger was cleaned with Hibiclens, irrigated with normal saline, dressed with. Wound care: was dressed with Neosporin. Wound care: Patient tolerated well. 14:35 No provider procedures requiring assistance completed. Patient did not have IV access hb during this emergency room visit. 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 Exp: ll1 07/19/2021. Lot #: [id number]. } Route: IM; Site: left deltoid; 14:34 Follow up: Response: No adverse reaction hb Outcome: 13:55 Discharge ordered by . niharika 14:35 Discharged to home ambulatory. hb 14:35 Condition: stable 14:35 Discharge instructions given to patient, Instructed on discharge instructions, follow up and referral plans. medication usage, wound care, Demonstrated understanding of instructions, follow-up care, medications, wound care, Prescriptions given X 1. 14:35 Patient left the ED. hb Signatures: Dispatcher [employer] EDMS Carol Cox, PHILL-C PHILL-Erika Saunders, RN RN Leonor Calix rg4 Adrián Green jp3 Montserrat Lilly, RN RN ll1
[2020-04-20] MEDS ORDERED: HYDROCODONE/APAP 7.5/325 MG TAB ONE (14:04)
[2020-04-20] MEDS ORDERED: SMZ./TMP. 800/160 MG TABLET ONE (14:04)
[2020-04-20] MEDS ORDERED: TETANUS & DIPHTHERIA TOX,ADULT 0.5 ML VIAL ONE (14:11)
[2020-04-20 14:47] VITALS: BP 157/80; TEMP 98; O2SAT 100
--- NOTE | 2020-04-20 15:21 | RAD REPORT ---
EXAM DESCRIPTION: RAD - Hand Right 3 View - 04/20/2020 1:36 pm CLINICAL HISTORY: PAIN COMPARISON: Hand Right 3 View dated 02/13/2017 FINDINGS: No fracture is identified. There is no dislocation or periosteal reaction noted. Soft tis tolu swelling is present around the fourth PIP joint. There is soft tissue swelling over the dorsum of the hand near the MCP joints. No foreign body seen. IMPRESSION: Soft tissue swelling over the dorsum of the hand and right fourth PIP joint. No fracture identified.
== END 2020-04-20 14:35 | disposition home or self-care (01) ==
LOC: ER 11:46
DX: S61.214A Laceration without foreign body of right ring finger without damage to nail, initial encounter (principal); I10 Essential (primary) hypertension; W22.8XXA Striking against or struck by other objects, initial encounter; Y93.89 Activity, other specified; Y92.9 Unspecified place or not applicable; Z23 Encounter for immunization; F17.210 Nicotine dependence, cigarettes, uncomplicated
CPT/HCPCS: 90471; 90714; 99284

== ENCOUNTER 2022-04-29 01:25 | Emergency (ER) | payer OTHER ==
--- OUTSIDE RECORDS SUMMARY | 2022-04-29 01:28 | XMS REPORT | Continuity of Care Document ---
:1985 Author Organization [facility] t Address [address] [place] [address] Care Team Providers Name Role Phone JEAN CLAUDE GREENE Primary Care Physician Unavailable Adonis RING Attending Clinician Unavailable Adonis Haque Attending Clinician Doctor Unassigned, [place] Attending Clinician Unavailable Adonis RING Admitting Clinician Unavailable Payers Payer Name Policy Type Policy Number Effective Date Expiration Date Fabienne boland [facility] [id number] 2018 00:00:00 PLUS Problems This patient has no known problems. Allergies, Adverse Reactions, Alerts Allergy Allergy Status Severity Reaction(s) Onset Inactive Treating Comm ents Source Name Type Date Date Clinician NO KNOWN Drug Active [facility] Class [facility] Medications This patient has no known medications. Procedures This patient has no known procedures. Encounters Start End Encounter Admission Attending Care Care Encounter Source Date/Time Date/Time Type Type Clinicians Facility Department ID 2019-08-29 2019-08-30 Emergency X Adonis RING [facility] ERT [id number] 22:18:14 00:17:00 [facility] 2019-08-29 2019-08-30 Emergency Adonis Ring [id number] 22:18:14 00:17:00 Gia Gaitan [id number] [place] [id number] [place] [id number] 2019-08-29 2019-08-29 Orders Doctor SANJEEV [id number] 00:00:00 00:00:00 Only Unassigned, KYLIE [id number] [place] [facility] [id number] Results This patient has no known results.
[2022-04-29] MEDS ORDERED: LEVETIRACETAM 500 MG/5 ML VIAL IV ONE (02:07)
[2022-04-29] MEDS ORDERED: NA CHLORIDE 0.9% 100 ML ONE (02:08)
[2022-04-29 02:37] LABS: Absolute Lymphocytes (CBC) 1.8 K/uL (0.7-4.9); Hematocrit 48.8 % (39.6-49.0); Lymphocytes % 9.3 % (15.3-44.8); MCV 91.6 fL (80-100); MPV 7.5 fL (7.6-11.3); RBC Red Blood Cell Count 5.33 M/uL (4.33-5.43)
[2022-04-29 02:46] LABS: Bilirubin Total 0.4 mg/dL (0.2-1.0); Protein, Total 7.8 g/dL (6.4-8.2)
--- NOTE | 2022-04-29 02:58 | EDPHYS ---
Physician Documentation [facility] Name: Raheem Feliz Age: 37 yrs Sex: Male : 1985 Arrival Date: 04/29/2022 Time: 01:25 Bed 9 Private MD: ED Physician Edmund Rivas HPI: 04/29 03:01 This 37 yrs old Male presents to ER via EMS with complaints of seizure. bs3 03:01 This 37 yrs old Male presents to ER via EMS with complaints of seizure. bs3 01:44 37 yo hx hypertension, seizure disorder on Keppra lisinopril ox carbamazepine not on bs3 medications presents with several seizures today he notes that since then in January he has had seizures intermittently he has not taken any medications he was on follow-up with any doctors he notes no increase stressors recently no fevers chills cough trouble breathing or anything else bothering him and him he feels little bit groggy currently per family at bedside he had a witnessed tonic-clonic seizure which was typical for him which lasted minutes and resolved on its own prior to arrival in edition his mom notes that he had seizures at his significant other's house recently as well. Historical: - Allergies: 01:29 No Known Allergies; lg3 - Home Meds: 01:29 Keppra 750 mg Oral tab 2 times per day [Active]; lisinopril 20 mg Oral tab 1 tab once lg3 daily [Active]; oxcarbazepine 300 mg Oral tab 1 tab 2 times per day [Active]; - PMHx: 01:29 "I was in a coma for about 6 months"; Hypertension; Seizures; lg3 - PSHx: 01:29 None; lg3 - Immunization history:: Adult Immunizations unknown, Client reports having NOT received the Covid vaccine. Flu vaccine is not up to date. - Social history:: Smoking status: Patient reports the use of cigarette tobacco products, smokes one pack cigarettes per day. Patient uses alcohol, occasionally. ROS: 01:44 Constitutional: Negative for fever, chills Eyes: Negative for injury, pain, redness, bs3 and discharge, ENT: Negative for injury, pain, and discharge, Neck: Negative for injury, pain, and swelling, Cardiovascular: Negative for chest pain, palpitations, and edema, Respiratory: Negative for shortness of breath, cough, wheezing Abdomen/GI: Negative for abdominal pain, nausea, vomiting, diarrhea MS/Extremity: Negative for injury and deformity, Skin: Negative for injury, rash, and discoloration. Exam: 01:44 Constitutional: This is a well developed, well nourished patient who is awake, alert, bs3 and in no acute distress. Head/Face: Normocephalic, atraumatic. Eyes: Pupils equal round and reactive to light, extra-ocular motions intact. Lids and lashes normal. Chest/axilla: Normal chest wall appearance and motion. Nontender with no deformity. No lesions are appreciated. Cardiovascular: Regular rate and rhythm with a normal S1 and S2. symmetric pulses in upper extremities Respiratory: Lungs have equal breath sounds bilaterally, clear to auscultation, no respiratory distress Abdomen/GI: Soft, non-tender, no rebound or guarding MS/ Extremity: Pulses equal, no cyanosis. Neurovascular intact. Full, normal range of motion. Neuro: Awake and alert, GCS 15, oriented to person, place, time, and situation. Cranial nerves II-XII grossly intact. Motor strength 5/5 in all extremities. Sensory grossly intact. 03:01 CT study not indicated or reported. Reason for not performing CT: not performed bs3 Vital Signs: 01:25 BP 131 / 78; Pulse 98; Temp 98.8(O); Pulse Ox 97% on R/A; Weight 90.72 kg (R); Height 6 lg3 ft. 0 in. (182.88 cm) (R); Pain 0/10; 01:25 Body Mass Index 27.12 (90.72 kg, 182.88 cm) lg3 MDM: 01:26 Patient medically screened. bs3 01:44 Differential diagnosis: CVA, metabolic disorder, drug effects. Data reviewed: vital bs3 signs, nurses notes. Test considered but Not performed: CT: He was considered but he has a normal neuro exam. Historians other than the Patient: Parent: parent. Care significantly affected by the following Social Determinants of Health: Unemployment, Problems related to employment. ED course: As patient has no follow-up will restart medications we will give 1 dose of intravenous Keppra here patient strongly advised to follow-up with primary care and neurology. 02:55 ED course: labs notable for leukocytosis reviewed by myself, likely from seizure, no bs3 signs of infection, pt given medication here, no recurrent seizure, pt stable for dc, strongly advised f/u with pcp and neurology. 04/29 01:41 Order name: CBC with Diff; Complete Time: 02:52 bs3 04/29 01:41 Order name: Comprehensive Metabolic Panel; Complete Time: 02:52 bs3 Administered Medications: 02:18 Drug: Keppra (levETIRAcetam) 20 mg/kg Route: IV; Rate: bolus; Site: right antecubital; lg3 Disposition Summary: 04/29/22 02:58 Discharge Ordered Location: Home bs3 Problem: an acute exacerbation bs3 Symptoms: are resolved bs3 Condition: Stable bs3 Diagnosis - Epilepsy, unspecified, not intractable, without status epilepticus bs3 Followup: bs3 - With: Private Physician - When: Upon discharge from the Emergency Department - Reason: Further diagnostic work-up Followup: bs3 - With: Anthony Pierson MD - When: 5 - 6 days - Reason: Recheck today's complaints Discharge Instructions: - Discharge Summary Sheet bs3 - Epilepsy bs3 - Seizure, Adult bs3 Forms: - Medication Reconciliation Form bs3 - Thank You Letter bs3 - Antibiotic Education bs3 - Prescription Opioid Use bs3 Prescriptions: - Keppra 750 mg Oral Tablet - take 1 tablet by ORAL route every 12 hours; 20 tablet; Refills: 0, Product bs3 Selection Permitted - oxcarbazepine 300mg BID for 10 days #20 - take 300 milligram by ORAL route 2 times per day for 10 days; 20 milligram; bs3 Refills: 0, Product Selection Permitted - Lisinopril 20 mg Oral Tablet - take 1 tablet by ORAL route once daily; 20 tablet; Refills: 0, Product bs3 Selection Permitted Signatures: Dispatcher [employer] Ines Gooden RN RN lg3 Edmund Rivas MD MD bs3
--- NOTE | 2022-04-29 02:58 | ER ---
Nurse's Notes [facility] Name: Raheem Feliz Age: 37 yrs Sex: Male : 1985 Arrival Date: 04/29/2022 Time: 01:25 Bed 9 Private MD: Diagnosis: Epilepsy, unspecified, not intractable, without status epilepticus Presentation: 04/29 01:25 Chief complaint: EMS states: toned out for multiple seizure episodes. fist seizure at lg3 0000 lasting 4 minutes. next seizure at 0030 lasting 5 min. 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 pt not medicated at this time due to recently being released from [facility]. Pt post ictal at this time. Coronavirus screen: Client denies travel out of the [place] in the last 14 days. At this time, the client does not indicate any symptoms associated with coronavirus-19. Ebola Screen: No symptoms or risks identified at this time. Initial Sepsis Screen: Does the patient meet any 2 criteria? No. Patient's initial sepsis screen is negative. Does the patient have a suspected source of infection? No. Patient's initial sepsis screen is negative. Risk Assessment: Do you want to hurt yourself or someone else? Patient reports no desire to harm self or others. Onset of symptoms was April 29, 2022. :25 Method Of Arrival: EMS: [facility] 3 01:25 Acuity: BIBI 3 lg3 Triage Assessment: 01:29 General: Appears in no apparent distress. uncomfortable, Behavior is calm, cooperative, lg3 flat. Pain: Denies pain. EENT: No deficits noted. No signs and/or symptoms were reported regarding the EENT system. Neuro: Nguyen Agitation-Sedation Scale (RASS): -1 Drowsy Level of Consciousness is awake, obeys commands, post ictal, Oriented to person, place, time, situation. Cardiovascular: No deficits noted. Denies chest pain, shortness of breath, Capillary refill < 3 seconds Clubbing of nail beds is absent JVD is absent Patient's skin is warm and dry. Respiratory: No deficits noted. Airway is patent Trachea midline Respiratory effort is even, unlabored, Respiratory pattern is regular, symmetrical. GI: No deficits noted. No signs and/or symptoms were reported involving the gastrointestinal system. : No deficits noted. No signs and/or symptoms were reported regarding the genitourinary system. Derm: No deficits noted. No signs and/or symptoms reported regarding the dermatologic system. Skin is intact, is healthy with good turgor, Skin is dry, Skin is normal. Musculoskeletal: No deficits noted. Circulation, motion, and sensation intact. Range of motion: intact in all extremities. Historical: - Allergies: No Known Allergies; lg3 - Home Meds: Keppra 750 mg Oral tab 2 times per day [Active]; lisinopril 20 mg Oral tab 1 tab once lg3 daily [Active]; oxcarbazepine 300 mg Oral tab 1 tab 2 times per day [Active]; - PMHx: "I was in a coma for about 6 months"; Hypertension; Seizures; lg3 - PSHx: None; lg3 - Immunization history:: Adult Immunizations unknown, Client reports having NOT received the Covid vaccine. Flu vaccine is not up to date. - Social history:: Smoking status: Patient reports the use of cigarette tobacco products, smokes one pack cigarettes per day. Patient uses alcohol, occasionally. Screenin:31 [facility] ED Fall Risk Assessment (Adult) History of falling in the last 3 months, lg3 including since admission No falls in past 3 months (0 pts). Abuse screen: Denies threats or abuse. Denies injuries from another. Nutritional screening: No deficits noted. Tuberculosis screening: No symptoms or risk factors identified. Assessment: :31 General: see triage assessment . lg3 02:38 Reassessment: Patient appears in no apparent distress at this time. No changes from lg3 previously documented assessment. Patient and/or family updated on plan of care and expected duration. Pain level reassessed. Patient is alert, oriented x 3, equal unlabored respirations, skin warm/dry/pink. Patient states feeling better. Patient states symptoms have improved. 03:28 Reassessment: Patient appears in no apparent distress at this time. No changes from lg3 previously documented assessment. Patient and/or family updated on plan of care and expected duration. Pain level reassessed. Patient is alert, oriented x 3, equal unlabored respirations, skin warm/dry/pink. Patient denies pain at this time. Patient states feeling better. Patient states symptoms have improved. Vital Signs: 01:25 BP 131 / 78; Pulse 98; Temp 98.8(O); Pulse Ox 97% on R/A; Weight 90.72 kg (R); Height 6 lg3 ft. 0 in. (182.88 cm) (R); Pain 0/10; : Body Mass Index 27.12 (90.72 kg, 182.88 cm) lg3 ED Course: : Patient arrived in ED. lg3 01:25 Edmund Rivas MD is Attending Physician. bs3 01:29 Triage completed. lg3 01:29 Arm band placed on right wrist. lg3 01:30 Inserted saline lock: 20 gauge in right antecubital area, using aseptic technique. lg3 Blood collected. 01:31 Patient has correct armband on for positive identification. Placed in gown. Bed in low lg3 position. Call light in reach. Side rails up X2. Seizure precautions initiated. Client placed on continuous cardiac and pulse oximetry monitoring. NIBP monitoring applied. director digital catalogue on. Door closed. Noise minimized. Warm blanket given. Family accompanied patient. 02:57 Anthony Pierson MD is Referral Physician. bs3 03:29 No provider procedures requiring assistance completed. IV discontinued, intact, lg3 bleeding controlled, No redness/swelling at site. Pressure dressing applied. Administered Medications: 02:18 Drug: Keppra (levETIRAcetam) 20 mg/kg Route: IV; Rate: bolus; Site: right antecubital; lg3 Medication: 03:30 VIS not applicable for this client. lg3 Outcome: 02:58 Discharge ordered by . bs3 03:29 Discharged to home via wheelchair, with family. lg3 03:29 Condition: stable 03:29 Discharge instructions given to patient, family, Instructed on discharge instructions, follow up and referral plans. medication usage, Demonstrated understanding of instructions, follow-up care, medications, Prescriptions given X 3. 03:30 Patient left the ED. lg3 Signatures: Ines Cagle RN RN lg3 Edmund Rivas MD MD bs3
[2022-04-29 04:02] VITALS: BP 131/78; TEMP 98.8; O2SAT 97
== END 2022-04-29 03:30 | disposition home or self-care (01) ==
LOC: ER 01:25
DX: G40.909 Epilepsy, unspecified, not intractable, without status epilepticus (principal); I10 Essential (primary) hypertension; F17.210 Nicotine dependence, cigarettes, uncomplicated
CPT/HCPCS: 85025; 36415; 80053; 96374; 99284; J1953

== ENCOUNTER 2022-09-25 16:45 | Emergency (ER) | payer OTHER ==
--- OUTSIDE RECORDS SUMMARY | 2022-09-25 16:47 | XMS REPORT | Continuity of Care Document ---
:[address] [facility] t Address [address] [facility]. [address] [place] [address] Care Team Providers Name Role Phone Nickie Cagle Primary Care Physician Doctor Unassigned, [place] Attending Clinician Unavailable Adonis Haque Attending Clinician Adonis RING Attending Clinician Unavailable Adonis RING Admitting Clinician Unavailable Payers Payer Name Policy Type Policy Number Effective Date Expiration Date S krystian Problems Condition Condition Condition Status Onset Resolution Last Treating Co mments Source Name Details Category Date Date Treatment Clinician Date Bacterial Bacterial Disease Active Overview: Univers pneumonia pneumonia 09-24 Formattin i ty of 00:00: g of this [place] 00 note Medical might be Branch different from the original. 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 Agitation Allergies, Adverse Reactions, Alerts Allergy Allergy Status Severity Reaction(s) Onset Inactive Treating Comm ents Source Name Type Date Date Clinician NO KNOWN Drug Active Univers ALLERGIE Class ity of S [place] [facility] Branch Social History Social Habit Start Date Stop Date Quantity Comments Source Sex Assigned At [birth year] [facility] [place] 00:00:00 00:00:00 Medical Branch Smoking Status Start Date Stop Date Source Tobacco smoking consumption Univ [facility] [place] Medical unknown Branch Medications Ordered Filled Start Stop Current Ordering Indication Dosage Frequency Signature Comments Components Source Medication Medication Date Date Medication? Clinician (SIG) Name Name doxycycline Yes [id number] 100mg Take 1 Univers hyclate 100 5-28 [id number] capsule by ity of mg capsule 00:00: mouth 2 [place] (two) Medical times Branch daily. ibuprofen Yes [id number] 600mg Take 1 Univers 600 mg 5-28 [id number] tablet by ity of tablet 00:00: mouth [place] 00 every 6 Medical (six) Branch hours as needed for Pain (scale 4-6). ADVIL PM Yes None Univers ORAL 8-02 Entered ity of 14:35: [place] [address] Medical Branch TYLENOL 325 Yes None Univer s MG ORAL TAB 8-02 Entered ity o f 14:35: [place] [address] Medical Branch CARBAMAZEPI Yes take 3 Univ ers NE 300 MG 8-02 tablets by ity of ORAL CM12 00:00: mouth [place] 00 twice Medical daily Branch ZYPREXA 5 Yes take one Univ ers MG ORAL TAB 8-02 tablet ity of 00:00: twice [place] 00 daily Medical Branch TRIMETHOPRI Yes take one Un bib M-SULFAMETH 8-02 tablet ity of OXAZOLE 00:00: twice a [place] 160-800 MG 00 day for 7 Medi reanna ORAL TAB days Branch HYDROCODONE Yes Use as Univ ers -ACETAMINOP 6-30 directed ity of HEN 7.5-325 00:00: [place] MG ORAL TAB 00 Medical Branch OLANZAPINE Yes Take 1 PO Un bib 5 MG ORAL 6-30 BID ity of TAB 00:00: Medical Branch LEVOFLOXACI Yes Take 1 Univ ers N 500 MG 6-30 daily for ity of ORAL TAB 00:00: 3 days Medical Branch FLUCONAZOLE Yes Take 1 Univ ers 200 MG ORAL 6-30 daily for ity of TAB 00:00: 3 days Medical Branch LEVETIRACET Yes Take 2 via Univers AM 750 MG 6-30 tube BID ity of ORAL TAB 00:00: [place] [facility] Branch THIAMINE Yes 1 Tab Univers HCL 100 MG 6-30 Enteral ity of ORAL TAB 00:00: DAILY Medical Branch OXCARBAZEPI Yes 3 Tab Oral Univers NE 300 MG 6-30 BID ity of ORAL TAB 00:00: [place] 00 Medical Branch TRYPSIN-BAL Yes Topical Uni vers FARNAZ-CASTOR 6-30 BID ity of OIL 00:00: [place] [id number] 00 Medical UNIT-MG-MG/ Branch GRAM TOPICAL OINT FOLIC ACID Yes 1 Tab Oral U nivers 1 MG ORAL 6-30 DAILY ity of TAB 00:00: Medical Branch MULTIVITAMI Yes 5 mL Univer s N ORAL LIQD 6-30 Enteral ity o f 00:00: DAILY Medical Branch CLONAZEPAM Yes 1 Tab Oral U nivers 2 MG ORAL 6-30 BID ity of TAB 00:00: [place] [facility] Branch CLONAZEPAM Yes 2 Tab Oral U nivers 2 MG ORAL 2-25 Q6HA ity of TAB 00:00: [place] [facility] Branch PROPRANOLOL Yes 1 Tab Oral Univers 20 MG ORAL 2-25 BID ity of TAB 00:00: [address] Branch Immunizations Ordered Filled Immunization Date Status Comments Sourc e Immunization Name Name TD, NOS 2019-08-29 Completed [facility] 00:00:00 [facility] Procedures Procedure Date / Time Performing Clinician Source Performed AUTHORIZATION FOR 2022-08-13 05:01:00 Doctor Unassigned, No [facility] RELEASE OF PHI Name Medical Branch Encounters Start End Encounter Admission Attending Care Care Encounter Source Date/Time Date/Time Type Type Clinicians Facility Department ID 2022-08-13 2022-08-13 Orders Doctor SANJEEV [id number] Univers 00:00:00 00:00:00 Only Unassigned, KYLIE [id number] ity of [place] [facility] [id number] [facility] as [phone] [address] 2019-08-29 2019-08-30 Emergency Adonis Ring [facility] [id number] 22:18:14 00:17:00 Gia Arnie [id number] [place] [id number] [place] [id number] 2019-08-29 2019-08-30 Emergency X Adonis RING [facility] ERT [id number] [facility] 22:18:14 00:17:00 ity [facility] 2019-08-29 2019-08-29 Orders Doctor PACE [id number] 14 00:00:00 00:00:00 Only Unassigned, KYLIE [id number] [place] [facility] [id number] [id number] Results This patient has no known results.
--- NOTE | 2022-09-25 20:18 | ER ---
Nurse's Notes [facility] Name: Raheem Feliz Age: 37 yrs Sex: Male : 1985 Arrival Date: 09/25/2022 Time: 16:45 Bed IW7 Private MD: Diagnosis: Unspecified symptoms and signs involving the musculoskeletal system;Pain in hand and fingers;Pain in foot and toes Presentation: 09/25 18:09 Chief complaint: Patient states: Sore throat \\T\\ lower back pain for the past 7 days. os Coronavirus screen: Vaccine status: Patient reports being unvaccinated. Client denies travel out of the [place] in the last 14 days. Ebola Screen: Patient negative for fever greater than or equal to 101.5 degrees Fahrenheit, and additional compatible Ebola Virus Disease symptoms. Initial Sepsis Screen: Does the patient meet any 2 criteria? No. Patient's initial sepsis screen is negative. Does the patient have a suspected source of infection? No. Patient's initial sepsis screen is negative. Risk Assessment: Do you want to hurt yourself or someone else? Patient reports no desire to harm self or others. Onset of symptoms was September 17, 2022. 18:09 Method Of Arrival: Ambulatory os 18:09 Acuity: BIBI 4 os Triage Assessment: 20:56 General: Appears in no apparent distress. Behavior is calm, cooperative, appropriate os for age. Pain: Complains of pain in right side of head. - Immunization history:: Adult Immunizations up to date. - Social history:: Smoking status: Patient reports the use of cigarette tobacco products, smokes one-half pack cigarettes per day. Screenin:55 [facility] ED Fall Risk Assessment (Adult) History of falling in the last 3 months, os including since admission No falls in past 3 months (0 pts) Confusion or Disorientation No (0 pts) Intoxicated or Sedated No (0 pts) Impaired Gait No (0 pts) Mobility Assist Device Used No (0 pt) Altered Elimination No (0 pt) Score/Fall Risk Level 0 - 2 = Low Risk. Abuse screen: Denies threats or abuse. Nutritional screening: No deficits noted. Tuberculosis screening: No symptoms or risk factors identified. Vital Signs: 18:09 BP 158 / 83; Pulse 90; Resp 17; Temp 98.7; Pulse Ox 99% on R/A; Weight 88.45 kg; Height os 6 ft. 1 in. ; 18:09 Body Mass Index 25.73 (88.45 kg, 185.42 cm) os ED Course: 16:48 Patient arrived in ED. im 17:27 Arptia Valencia FNP-C [facility] snw 17:27 Gilberto Lamb MD is Attending Physician. snw 18:12 Triage completed. os 19:12 [place] Screen Profile Sent. tm3 19:12 Strep Sent. tm3 20:56 No provider procedures requiring assistance completed. Patient did not have IV access os during this emergency room visit. 20:56 Arm band placed on right wrist. os 20:57 Patient has correct armband on for positive identification. os 20:59 Throat Culture Sent. os Administered Medications: 20:59 Drug: Diazepam PO 10 mg Route: PO; os 20:59 Drug: Ibuprofen PO 600 mg Route: PO; os Medication: 21:00 VIS not applicable for this client. os Outcome: 20:17 Discharge ordered by MD. snw 20:56 Discharged to home ambulatory. os 20:56 Condition: stable 20:56 Discharge instructions given to patient, family, Instructed on discharge instructions, follow up and referral plans. medication usage, Prescriptions given X 1. 21:03 Discharge ordered by MD. cp 21:06 Patient left the ED. os Signatures: Prosper Sheldon tm3 Arpita Valencia FNP-C BLOOD BANK ASSISTANT-Csnw Gilberto Cervantes PA PA cp Manjula Leonard, RN RN os Karla Chapa im Corrections: (The following items were deleted from the chart) 20:57 20:57 PMHx: Seizures; os os 20:57 20:57 PMHx: Hypertension; os os 20:57 20:57 PMHx: "I was in a coma for about 6 months"; os os
--- NOTE | 2022-09-25 20:18 | EDPHYS ---
Physician Documentation [facility] Name: Raheem Feliz Age: 37 yrs Sex: Male : 1985 Arrival Date: 09/25/2022 Time: 16:45 Bed IW7 Private MD: ED Physician Gilberto Lamb HPI: 09/25 18:56 This 37 yrs old Male presents to ER via Ambulatory with complaints of Pain All snw Over. 18:56 Onset: The symptoms/episode began/occurred 1 week(s) ago, and became persistent. snw Associated signs and symptoms: Pertinent positives: sore throat, generalized bodyaches. It is unknown whether or not the patient has had similar symptoms in the past. It is unknown whether or not the patient has recently seen a physician. smokes. - Immunization history:: Adult Immunizations up to date. - Social history:: Smoking status: Patient reports the use of cigarette tobacco products, smokes one-half pack cigarettes per day. ROS: 18:56 Eyes: Negative for injury, pain, redness, and discharge. snw 18:56 Neck: Negative for injury, pain, and swelling, Cardiovascular: Negative for chest pain, palpitations, and edema, Respiratory: Negative for shortness of breath, cough, wheezing, and pleuritic chest pain, Abdomen/GI: Negative for abdominal pain, nausea, vomiting, diarrhea, and constipation, Back: Negative for injury and pain, : Negative for injury, bleeding, discharge, and swelling. 18:56 Skin: Negative for injury, rash, and discoloration, Neuro: Negative for headache, weakness, numbness, tingling, and seizure, Psych: Negative for depression, anxiety, suicide ideation, homicidal ideation, and hallucinations. 18:56 Constitutional: Positive for body aches. 18:56 ENT: Positive for sore throat. 18:56 MS/extremity: Positive for pain in hands and feet. Exam: 18:54 Constitutional: This is a well developed, well nourished patient who is awake, alert, snw and in no acute distress. Head/Face: Normocephalic, atraumatic. Eyes: Pupils equal round and reactive to light, extra-ocular motions intact. Lids and lashes normal. Conjunctiva and sclera are non-icteric and not injected. Cornea within normal limits. Periorbital areas with no swelling, redness, or edema. Neck: Trachea midline, no thyromegaly or masses palpated, and no cervical lymphadenopathy. Supple, full range of motion without nuchal rigidity, or vertebral point tenderness. No Meningismus. Chest/axilla: Normal chest wall appearance and motion. Nontender with no deformity. No lesions are appreciated. Respiratory: Lungs have equal breath sounds bilaterally, clear to auscultation and percussion. No rales, rhonchi or wheezes noted. No increased work of breathing, no retractions or nasal flaring. Abdomen/GI: Soft, non-tender, with normal bowel sounds. No distension or tympany. No guarding or rebound. No evidence of tenderness throughout. Back: No spinal tenderness. No costovertebral tenderness. Full range of motion. Skin: Warm, dry with normal turgor. Normal color with no rashes, no lesions, and no evidence of cellulitis. MS/ Extremity: Pulses equal, no cyanosis. Neurovascular intact. Full, normal range of motion. Neuro: Awake and alert, GCS 15, oriented to person, place, time, and situation. Cranial nerves II-XII grossly intact. Motor strength 5/5 in all extremities. Sensory grossly intact. Cerebellar exam normal. Normal gait. Psych: Awake, alert, with orientation to person, place and time. Behavior, mood, and affect are within normal limits. 18:54 Neck: Trachea midline, no thyromegaly or masses palpated, but tender and enlarged cervical lymphadenopathy. Supple, full range of motion without nuchal rigidity, or vertebral point tenderness. No Meningismus. 18:54 ENT: External ear(s): are unremarkable, Nose: is normal, Mouth: Oral mucosa: moist, Posterior pharynx: erythema, that is mild, Voice: is normal. 18:54 Cardiovascular: Rate: tachycardic, Heart sounds: normal. Vital Signs: 18:09 BP 158 / 83; Pulse 90; Resp 17; Temp 98.7; Pulse Ox 99% on R/A; Weight 88.45 kg; Height os 6 ft. 1 in. ; 18:09 Body Mass Index 25.73 (88.45 kg, 185.42 cm) os MDM: 18:14 Patient medically screened. snw 20:19 Differential diagnosis: viral Infection, bacterial infection. Data reviewed: vital snw signs, nurses notes. Counseling: I had a detailed discussion with the patient and/or guardian regarding: the historical points, exam findings, and any diagnostic results supporting the discharge/admit diagnosis, lab results, the need for outpatient follow up, for definitive care, to return to the emergency department if symptoms worsen or persist or if there are any questions or concerns that arise at home. Special discussion: I have referred the patient to see his PCP for further evaluation of high blood pressure. Based on the history and exam findings, there is no indication for further emergent testing or inpatient evaluation. I discussed with the patient/guardian the need to see the primary care provider for further evaluation of the symptoms. 09/25 18:14 Order name: Strep; Complete Time: 20:16 snw 09/25 18:14 Order name: [place] Screen Profile; Complete Time: 19:42 snw 09/25 19:46 Order name: Throat Culture EDMS Administered Medications: 20:59 Drug: Diazepam PO 10 mg Route: PO; os 20:59 Drug: Ibuprofen PO 600 mg Route: PO; os Disposition Summary: 09/25/22 21:03 Discharge Ordered Location: Home(09/25/22 21:03) cp Condition: Stable(09/25/22 21:03) cp Diagnosis - Unspecified symptoms and signs involving the musculoskeletal system cp - Pain in hand and fingers cp - Pain in foot and toes cp Followup: cp - With: Emergency Department - When: As needed - Reason: Worsening of condition, Recheck today's complaints Followup: cp - With: Private Physician - When: 2 - 3 days - Reason: Recheck today's complaints, Continuance of care, Re-evaluation by your physician Discharge Instructions: - Discharge Summary Sheet cp - Steps to Quit Smoking cp - Health Risks of Smoking cp - Managing the Challenge of Quitting Smoking cp - Smoking and Musculoskeletal Health cp Forms: - Medication Reconciliation Form cp - Thank You Letter cp - Antibiotic Education cp - Prescription Opioid Use cp Prescriptions: - Mobic 7.5 mg Oral Tablet - take 1 tablet by ORAL route once daily take with food; 20 tablet; Refills: 0, cp Product Selection Permitted - Cyclobenzaprine 10 mg Oral Tablet - take 1 tablet by ORAL route every 8 hours As needed; 30 tablet; Refills: 0, cp Product Selection Permitted Signatures: [employer] EDMI Arpita Valencia FNP-C FNP-[place] Gilberto Cervantes PA PA cp Manjula Leonard, RN RN os Corrections: (The following items were deleted from the chart) 20 20:57 PMHx: Seizures; os os 20:57 PMHx: Hypertension; os os 20:57 PMHx: "I was in a coma for about 6 months"; os os 20: 20:17 Home snw os 20: 20:17 Stable snw os 20:58 20:17 Pain, unspecified snw os
[2022-09-25] MEDS ORDERED: DIAZEPAM 5 MG TABLET ONE (20:58)
[2022-09-25] MEDS ORDERED: IBUPROFEN 200 MG TAB PO ONE (20:59)
[2022-09-25 21:53] VITALS: BP 158/83; TEMP 98.7; O2SAT 99
== END 2022-09-25 21:06 | disposition home or self-care (01) ==
LOC: ER 16:45
DX: R29.91 Unspecified symptoms and signs involving the musculoskeletal system (principal); M79.642 Pain in left hand; M79.641 Pain in right hand; M79.672 Pain in left foot; M79.671 Pain in right foot; M79.645 Pain in left finger(s); M79.644 Pain in right finger(s); M79.675 Pain in left toe(s); M79.674 Pain in right toe(s); R07.0 Pain in throat; F17.210 Nicotine dependence, cigarettes, uncomplicated
CPT/HCPCS: 36415; 86308; 87070; 87081; 99283

== ENCOUNTER 2022-12-02 15:24 | Emergency (ER) | payer OTHER ==
--- OUTSIDE RECORDS SUMMARY | 2022-12-02 15:28 | XMS REPORT | Continuity of Care Document ---
:1985 Author Organization [facility] t Address [address] [facility]. [address] [place] [address] Care Team Providers Name Role Phone Nickie Cagle Primary Care Physician Doctor Unassigned, [place] Attending Clinician Unavailable Adonis Haque Attending Clinician Adonis RING Attending Clinician Unavailable Adonis RING Admitting Clinician Unavailable Payers Payer Name Policy Type Policy Number Effective Date Expiration Date S ourjo Problems Condition Condition Condition Status Onset Resolution Last Treating Co mments Source Name Details Category Date Date Treatment Clinician Date Bacterial Bacterial Disease Active Overview: Univers pneumonia pneumonia 09-24 Formattin i ty of 00:00: g of this [place] 00 note Medical might be Branch different from the original. 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 Fungal Gastrostom Gastrostom Disease Active U nivers y status y status 09-24 ity of 00:00: [place] 00 Medical Branch Myoclonus Myoclonus Disease Active Uni vers 09-15 ity of 00:00: [place] 00 Medical Branch Persistent Persistent Disease Active [...] Active Univers ALLERGIE Class ity of S [place] Medical Branch Social History Social Habit Start Date Stop Date Quantity Comments Source Sex Assigned At [birth year] [facility] [place] 00:00:00 00:00:00 Medical Branch Smoking Status Start Date Stop Date Source Tobacco smoking consumption Univ ersity of [place] Medical unknown Branch Medications Ordered Filled Start Stop Current Ordering Indication Dosage Frequency Signature Comments Components Source Medication Medication Date Date Medication? Clinician (SIG) Name Name doxycycline Yes [id number] 100mg Take 1 Univers hyclate 100 5-28 [id number] capsule by ity of mg capsule 00:00: mouth 2 [place] (two) Medical times Branch daily. ibuprofen Yes [id number] 600mg Take 1 Univers 600 mg 5-28 [id number] tablet by ity of tablet 00:00: mouth [place] 00 every 6 Medical (six) Branch hours as needed for Pain (scale 4-6). ADVIL PM Yes None Univers ORAL 8-02 Entered ity of 14:35: [place] [address] Medical Branch TYLENOL 325 Yes None Univer s MG ORAL TAB 8-02 Entered ity o f 14:35: [place] [address] Medical Branch CARBAMAZEPI Yes take 3 Univ [...] tube BID ity of ORAL TAB 00:00: [place] Medical Branch THIAMINE Yes 1 Tab Univers HCL 100 MG 6-30 Enteral ity of ORAL TAB 00:00: DAILY Medical Branch OXCARBAZEPI Yes 3 Tab Oral Univers NE 300 MG 6-30 BID ity of ORAL TAB 00:00: [place] 00 Medical Branch TRYPSIN-BAL Yes Topical Uni vers FARNAZ-CASTOR 6-30 BID ity of OIL 00:00: [place] [id number] Medical UNIT-MG-MG/ Branch GRAM TOPICAL OINT FOLIC ACID Yes 1 Tab Oral U nivers 1 MG ORAL 6-30 DAILY ity of TAB 00:00: Medical Branch MULTIVITAMI Yes 5 mL Univer s N ORAL LIQD 6-30 Enteral ity o f 00:00: DAILY Medical Branch CLONAZEPAM Yes 1 Tab Oral U nivers 2 MG ORAL 6-30 BID ity of TAB 00:00: [place] Medical Branch CLONAZEPAM Yes 2 Tab Oral U nivers 2 MG ORAL 2-25 Q6HA ity of TAB 00:00: [place] Medical Branch PROPRANOLOL Yes 1 Tab Oral Univers 20 MG ORAL 2-25 BID ity of TAB 00:00: [address] Branch Immunizations Ordered Filled Immunization Date Status Comments Sourc e Immunization Name Name TD, NOS 2019-08-29 Completed [facility] 00:00:00 [facility] Procedures Procedure Date / Time Performing Clinician Source Performed AUTHORIZATION FOR 2022-08-13 05:01:00 Doctor Unassigned, No [facility] RELEASE OF PHI Name Medical Branch Encounters Start End Encounter Admission Attending Care Care Encounter Source Date/Time Date/Time Type Type Clinicians Facility Department ID 2022-08-13 2022-08-13 Orders Doctor SANJEEV [id number] Univers 00:00:00 00:00:00 Only Unassigned, KYLIE [id number] ity of [place] [facility] [id number] [facility] as [phone] [address] 2019-08-29 2019-08-30 Emergency Adonis Ring [facility] [id number] 22:18:14 00:17:00 Gia Arnie [id number] [place] [id number] [place] [id number] 2019-08-29 2019-08-30 Emergency X Adonis RING [facility] ERT [id number] [facility] 22:18:14 00:17:00 ity [facility] 2019-08-29 2019-08-29 Orders Doctor PACE [id number] 00:00:00 00:00:00 Only Unassigned, KYLIE [id number] [place] [facility] [id number] Results This patient has no known results.
[2022-12-02] MEDS ORDERED: LORazepam 2 MG/ML VIAL ONE ×2 (15:41→17:11)
[2022-12-02 16:04] LABS: Absolute Lymphocytes (CBC) 2.3 K/uL (0.7-4.9); Hematocrit 46.3 % (39.6-49.0); Lymphocytes % 28.2 % (15.3-44.8); MCV 91.9 fL (80-100); MPV 7.2 fL (7.6-11.3); Platelets 294 thou/uL (152-406); RBC Red Blood Cell Count 5.04 M/uL (4.33-5.43)
[2022-12-02 16:08] LABS: Protime INR 1.06
[2022-12-02 16:22] LABS: ALT/SGPT 21 U/L (16-61); AST/SGOT 17 U/L (15-37); Albumin 3.9 g/dL (3.4-5.0); Alkaline Phosphatase 119 U/L (45-117); BUN Blood Urea Nitrogen 11 mg/dL (7-18); Bicarbonate 27 mEq/L (21-32); Bilirubin Direct 0.2 mg/dL (0-0.2); Bilirubin Indirect, Calculated 0.1 mg/dL (0.2-0.8); Bilirubin Total 0.3 mg/dL (0.2-1.0); Glomerular Filtration Rate 104 ml/min (=/>90); Glucose Level 130 mg/dL (74-106); Potassium 3.6 mEq/L (3.5-5.1); Protein, Total 7.4 g/dL (6.4-8.2); Sodium Level 143 mEq/L (136-145); Troponin High Sensitivity 4.6 pg/mL (<58.9)
--- NOTE | 2022-12-02 16:38 | RAD REPORT ---
EXAM DESCRIPTION: [place] Single View12/02/2022 4:08 pm CLINICAL HISTORY: PAIN COMPARISON: Chest Single View dated 09/29/2017; Chest Single View dated 06/03/2017; CHEST SINGLE VIEW d ated 08/11/2010; ABDOMEN ACUTE SERIES dated 11/01/2007 TECHNIQUE: Portable AP view of the chest. FINDINGS: Decreased inspiratory effort somewhat limits evaluation. The lungs are clear apart from bi basilar minimal opacities favored to represent atelectasis. . No pneumothorax or effusion. The cardi omediastinal contours are unremarkable. IMPRESSION: No acute cardiopulmonary process. Suggestion of bibasilar atelectatic changes.
--- NOTE | 2022-12-02 17:10 | RAD REPORT ---
EXAM DESCRIPTION: CT - CTHCSPWOC - 12/02/2022 3:51 pm CLINICAL HISTORY: CONFUSED COMPARISON: Head Brain Wo Cont dated 09/29/2017 TECHNIQUE: Axial thin cut noncontrast CT images of the head were obtained. Axial thin cut noncontrast CT images of the cervical spine were obtained. Multiplanar reformatted images were generated and reviewed. All CT scans are performed using dose optimization technique as appropriate and may include automated exposure control or mA/KV adjustment according to patient size. FINDINGS: CT HEAD WITHOUT CONTRAST: No acute hemorrhage, hydrocephalus or extra-axial collection is identified.No areas of brain edema or midline shift. Diffuse cerebellar atrophy, which can have a variety of etiologies, including heredi tary/syndromic ataxia, sequelae of prior infection, or be iatrogenic or drug related. Please correlat e clinically. The paranasal sinuses and mastoids are clear.The calvarium is intact. CT CERVICAL SPINE WITHOUT CONTRAST: No fracture or subluxation.No prevertebral soft tissues swelling is identified. IMPRESSION: No acute traumatic intracranial or cervical spine findings. Diffuse cerebellar atrophy, as above.
[2022-12-02] MEDS ORDERED: LEVETIRACETAM 500 MG/5 ML VIAL IV ONE (17:17)
[2022-12-02] MEDS ORDERED: NA CHLORIDE 0.9% 100 ML ONE (17:18)
--- NOTE | 2022-12-02 17:30 | RAD REPORT ---
EXAM DESCRIPTION: ISATU PITTMAN - 12/02/2022 4:54 pm CLINICAL HISTORY: SWELLING COMPARISON: No comparisons TECHNIQUE: Left hand, 2 views. FINDINGS: No fracture is identified. There is no dislocation or periosteal reaction noted. Joint alignment is maintained. No foreign body. Soft tissue swelling about the thumb. IMPRESSION: Soft tissue swelling about the thumb. No acute osseus abnormality.
--- NOTE | 2022-12-02 17:32 | RAD REPORT ---
EXAM DESCRIPTION: RAD - Forearm Left - 12/02/2022 4:54 pm CLINICAL HISTORY: SWELLING COMPARISON: Hand Left 3 View dated 12/02/2022 TECHNIQUE: Left forearm, 2 views. FINDINGS: No fracture is identified. There is no dislocation or periosteal reaction noted. No foreign body. Soft tissue swelling about the distal forearm. IMPRESSION: Soft swelling about the distal forearm. No acute osseous abnormality.
--- NOTE | 2022-12-02 17:51 | RAD REPORT ---
EXAM DESCRIPTION: CT - Chest Abd Pelvis Wo Con - 12/02/2022 5:20 pm CLINICAL HISTORY: TRAUMA COMPARISON: Abdomen Pelvis W Contrast dated 07/16/2022; Chest Single View dated 12/02/2022 TECHNIQUE: Thin axial CT images of the chest, abdomen, and pelvis, performed without IV contrast. Mu ltiplanar reformats were generated and reviewed. All CT scans are performed using dose optimization technique as appropriate and may include automated exposure control or mA/KV adjustment according to patient size. FINDINGS: Motion artifact limits evaluation. The lungs are clear.No pleural or pericardial effusion.No intrathoracic adenopathy. The liver, spleen, pancreas, adrenal glands and kidneys are within normal limits. There is mild left hydroureter, without hydronephrosis, or evidence of obstructing calculi. No bowel obstruction, free air, free fluid or abscess. IVC filter in place. Appendix is unremarkable. . No pathologic lymphadenopathy in the abdomen or pelvis. No worrisome osseous finding. IMPRESSION: No acute findings in the chest, abdomen, or pelvis. Mild left hydroureter and at least moderate bladder distention. Findings are nonspecific, could relat e to bladder outlet obstruction with reflux. Please correlate clinically.
[2022-12-02 18:48] LABS: Barbiturates NEGATIVE (NEGATIVE); Benzodiazepines NEGATIVE (NEGATIVE); Cocaine NEGATIVE (NEGATIVE); METHAMPHETAM NEGATIVE (NEGATIVE); Methadone NEGATIVE (NEGATIVE); Opiates NEGATIVE (NEGATIVE); Phencyclidine NEGATIVE (NEGATIVE); THC Cannibis NEGATIVE (NEGATIVE)
[2022-12-02] MEDS ORDERED: ZIPRASIDONE MESYLA 20 MG/VIAL IM ONE (19:50)
[2022-12-02] MEDS ORDERED: WATER FOR INJ,STERILE 10 ML ONE (19:50)
[2022-12-02] MEDS ORDERED: MULTIVITAMINS 10 ML VIAL (INJ) IV ONE (20:50)
[2022-12-02] MEDS ORDERED: NA CHLORIDE 0.9% 1,000 ML ONE (20:50)
[2022-12-02] MEDS ORDERED: THIAMINE 200 MG/2 ML INJ ONE (20:50)
[2022-12-02] MEDS ORDERED: FOLIC ACID 5 MG/ML VIAL ONE (20:52)
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
[2022-12-03 00:12] VITALS: TEMP 98.1
[2022-12-03 00:17] VITALS: O2SAT 98
[2022-12-03 00:18] VITALS: BP 155/90
--- NOTE | 2022-12-03 15:23 | EKG ---
Test Date: 2022-12-02 Test Time: 15:38:02 Newborn Hearing Screener: KALYN MEASUREMENT RESULTS: Intervals: Rate: 107 ME: 148 QRSD: 78 QT: 300 QTc: 400 [place]: P: 86 ME: 148 QRS: 84 T: 61 INTERPRETIVE STATEMENTS: Poor data quality, interpretation may be adversely affected Sinus tachycardia with occasional premature ventricular complexes Possible Left atrial enlargement Borderline ECG Compared to ECG 07/12/2019 18:36:57 Ventricular premature complex(es) now present Sinus rhythm no longer present Right-axis deviation no longer present Electronically Signed On 12-03-22 15:21:05 CDT by Asher Toney
--- NOTE | 2022-12-03 15:23 | EKG ---
Test Date: 2022-12-02 Test Time: 15:39:22 Special Effects Designer: KALYN MEASUREMENT RESULTS: Intervals: Rate: 113 [place]: 144 QRSD: 80 QT: 312 QTc: 427 [place]: P: 84 [place]: 144 QRS: 83 T: 56 INTERPRETIVE STATEMENTS: Sinus tachycardia Otherwise normal ECG Compared to ECG 12/02/2022 15:38:02 Ventricular premature complex(es) no longer present Electronically Signed On 12-03-22 15:21:00 CDT by Asher Toney
== END 2022-12-02 22:22 | disposition home or self-care (01) ==
LOC: ER 15:24
DX: F10.121 Alcohol abuse with intoxication delirium (principal); Z87.820 Personal history of traumatic brain injury; I10 Essential (primary) hypertension
CPT/HCPCS: 96365; 93005 ×2; 85025; 80048; 36415; 85610; 80076; 85730; 84484; 80307; 70450; 71250; 72125; 74176; 71045; 73130; 73090; 96375; 96372; 99285; 80143; 80179; 82077; J3411; J1953; J3486; J7030

== ENCOUNTER 2023-01-30 08:17 | Emergency (ER) | payer OTHER ==
--- OUTSIDE RECORDS SUMMARY | 2023-01-30 08:19 | XMS REPORT | Continuity of Care Document ---
:1985 Author Organization [facility] t Address [address] [place] [address] Care Team Providers Name Role Phone Nickie Cagle Primary Care Physician Doctor Unassigned, [place] Attending Clinician Unavailable Adonis Haque Attending Clinician Adonis RING Attending Clinician Unavailable Adonis RING Admitting Clinician Unavailable Payers Payer Name Policy Type Policy Number Effective Date Expiration Date Fabienne boland Problems Condition Condition Condition Status Onset Resolution Last Treating Co mments Source Name Details Category Date Date Treatment Clinician Date Bacterial Bacterial Disease Active Overview: Univers pneumonia pneumonia 09-24 Formattin i ty of 00:00: g of this [place] 00 note Medical might be Branch different from the original. 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 Clinician (SIG) Name Name doxycycline Yes [id number] 100mg Take 1 Univers hyclate 100 5-28 [id number] capsule by ity of mg capsule 00:00: mouth [place] (two[place] Medical times Branch daily. ibuprofen Yes [id number] 600mg Take 1 Univers 600 mg 5-28 [id number] tablet by ity of tablet 00:00: mouth [place] 00 every 6 Medical (six) Branch hours as needed for Pain (scale 4-6). ADVIL PM Yes None Univers ORAL 8-02 Entered ity of 14:35: [place] [address] Medical Branch TYLENOL 325 Yes None Univer s MG ORAL TAB 8-02 Entered ity o f 14:35: [place] [address] Medical Branch CARBAMAZEPI Yes take 3 Univ ers NE 300 MG 8-02 tablets by ity of ORAL CM12 00:00: mouth 00 twice Medical daily Branch ZYPREXA 5 [...] tube BID ity of ORAL TAB 00:00: Medical Branch THIAMINE Yes 1 Tab Univers HCL 100 MG 6-30 Enteral ity of ORAL TAB 00:00: DAILY Medical Branch OXCARBAZEPI Yes 3 Tab Oral Univers NE 300 MG 6-30 BID ity of ORAL TAB 00:00: Medical Branch TRYPSIN-BAL Yes Topical Uni vers FARNAZ-CASTOR 6-30 BID ity of OIL 00:00: [place] [phone] Medical UNIT-MG-MG/ Branch GRAM TOPICAL OINT FOLIC ACID Yes 1 Tab Oral U nivers 1 MG ORAL 6-30 DAILY ity of TAB 00:00: Medical Branch MULTIVITAMI Yes 5 mL Univer s N ORAL LIQD 6-30 Enteral ity o f 00:00: DAILY Medical Branch CLONAZEPAM Yes 1 Tab Oral U nivers 2 MG ORAL 6-30 BID ity of TAB 00:00: Medical Branch CLONAZEPAM Yes 2 Tab Oral U nivers 2 MG ORAL 2-25 Q6HA ity of TAB 00:00: [place] [facility] PROPRANOLOL Yes 1 Tab Oral Univers 20 MG ORAL 2-25 BID ity of TAB 00:00: [place] [facility] Procedures Procedure Date / Time Performing Clinician Source Performed AUTHORIZATION FOR 2022-08-13 05:01:00 [facility] Medical Branch Encounters Start End Encounter Admission Attending Care Care Encounter Source Date/Time Date/Time Type Type Clinicians Facility Department ID 2022-08-13 2022-08-13 Orders Doctor PACE [id number] Univers 00:00:00 00:00:00 Only Unassigned, KYLIE [id number] ity of [place] [facility] [id number] [facility] [id number] [address] 2019-08-29 2019-08-30 Emergency Adonis Ring [facility] [id number] 22:18:14 00:17:00 Gia Gaitan [id number] [place] [id number] [place] [id number] 2019-08-29 2019-08-30 Emergency X Adonis RING [facility] ERT [id number] Univers 22:18:14 00:17:[address] [facility] 2019-08-29 2019-08-29 Orders Doctor PACE [id number] 00:00:00 00:00:00 Only Unassigned, [id number] [id number] Results This patient has no known results.
[2023-01-30 08:40] LABS: Absolute Lymphocytes (CBC) 1.6 K/uL (0.7-4.9); Hematocrit 45.8 % (39.6-49.0); Lymphocytes % 12.7 % (15.3-44.8); MCV 90.9 fL (80-100); MPV 7.3 fL (7.6-11.3); Platelets 295 thou/uL (152-406); RBC Red Blood Cell Count 5.04 M/uL (4.33-5.43)
[2023-01-30] MEDS ORDERED: LEVETIRACETAM 500 MG/5 ML VIAL IV ONE (08:42)
[2023-01-30] MEDS ORDERED: NA CHLORIDE 0.9% 1,000 ML ONE (08:43)
[2023-01-30 08:53] LABS: Protime INR 1.14
[2023-01-30 09:08] LABS: Albumin 3.9 g/dL (3.4-5.0); Bilirubin Direct 0.2 mg/dL (0-0.2); Bilirubin Indirect, Calculated 0.4 mg/dL (0.2-0.8); Bilirubin Total 0.6 mg/dL (0.2-1.0); Potassium 3.9 mEq/L (3.5-5.1); Protein, Total 7.5 g/dL (6.4-8.2); Troponin High Sensitivity 9.2 pg/mL (<58.9)
--- NOTE | 2023-01-30 09:16 | RAD REPORT ---
EXAM DESCRIPTION: CT - Head Brain Wo Cont - 01/30/2023 8:41 am CLINICAL HISTORY: Seizure COMPARISON: January 14, 2023 TECHNIQUE: Computed axial tomography of the head was obtained. IV contrast was not requested. All CT scans are performed using dose optimization technique as appropriate and may include automated exposure control or mA/KV adjustment according to patient size. FINDINGS: An intracranial bleed is not seen The ventricles are normal in caliber No significant hypodense areas within the brain visualized No extra-axial fluid collection is noted. Subacute fracture medial wall right orbit with opacification ethmoid and right frontal sinus IMPRESSION: No acute intracranial abnormality is seen If patient's symptoms persist MRI of the brain would be recommended
--- NOTE | 2023-01-30 09:29 | EDPHYS ---
Physician Documentation [facility] Name: Raheem Feliz Age: 38 yrs Sex: Male : 1985 Arrival Date: 01/30/2023 Time: 08:17 Bed 8 Private MD: ED Physician Ad Garcia HPI: 01/30 08:25 This 38 yrs old Male presents to ER via EMS with complaints of Seizure. sb4 08:25 The patient presents with a history of multiple seizures, a total of 2, that last 7 sb4 minute(s), with the most recent occurring 1 hour(s) ago, the episode(s) was witnessed, by family, mother. Seizure onset: this morning. Seizure Hx: Cause: head injury, Last seizure: The patient's last seizure was approximately 4 day(s) ago. Associated injury: The patient did not suffer any apparent associated injury. EMS care: none. Current symptoms: headache, that is mild. Historical: - Allergies: 08:19 No Known Drug Allergies; ll1 - PMHx: 08:19 Hypertensive disorder; Seizure; traumatic brain injury; ll1 - Immunization history:: Adult Immunizations up to date. - Social history:: Smoking status: Patient denies any tobacco usage or history of. ROS: 08:25 Constitutional: Negative for fever, chills, and weight loss, sb4 08:25 Neuro: Positive for headache, seizure activity, 08:25 All other systems are negative, Exam: 08:25 Constitutional: This is a well developed, well nourished patient who is awake, alert, sb4 and in no acute distress. Head/Face: Normocephalic, atraumatic. Eyes: Extra-ocular motions intact. Periorbital areas with no swelling, redness, or edema. ENT: Mucous membranes moist. Cardiovascular: Regular rate and rhythm with a normal S1 and S2. Respiratory: Lungs have equal breath sounds bilaterally, clear to auscultation and percussion. No rales, rhonchi or wheezes noted. No increased work of breathing, no retractions or nasal flaring. Abdomen/GI: Soft, non-tender, no distension. Skin: Warm, dry with normal turgor. Normal color with no rashes, no lesions, and no evidence of cellulitis. MS/ Extremity: Pulses equal, no cyanosis. Neurovascular intact. Full, normal range of motion. Neuro: Awake and alert, GCS 15, oriented to person, place, time, and situation. Motor strength 5/5 in all extremities. Sensory grossly intact. Vital Signs: 08:18 BP 132 / 84; Pulse 75; Resp 17; Temp 97.7; Pulse Ox 97% ; Pain 8/10; ll1 09:50 BP 138 / 77; Pulse 76; Resp 16; Pulse Ox 99% on R/A; ll1 08:18 Pain Scale: Adult ll1 Isabela Coma Score: 08:20 Eye Response: spontaneous(4). Motor Response: obeys commands(6). Verbal Response: ll1 oriented(5). Total: 15. MDM: 08:19 Patient medically screened. sb4 08:25 Differential diagnosis: cerebral vascular accident, drug overdose, cardiac arrhythmia, sb4 seizure, TIA. 09:27 Data reviewed: vital signs, nurses notes, EMS record, lab test result(s), EKG, sb4 radiologic studies, and as a result, I will discharge patient. Consideration of Admission/Observation Patient was admitted/placed on observation. Care significantly affected by the following chronic conditions: Hypertension, TBI, epilepsy. Counseling: I had a detailed discussion with the patient and/or guardian regarding the historical points, exam findings, and any diagnostic results supporting the discharge/admit diagnosis, lab results, radiology results, the need for outpatient follow up, a neurologist, to return to the emergency department if symptoms worsen or persist or if there are any questions or concerns that arise at home. 01/30 08:21 Order name: Basic Metabolic Panel; Complete Time: 09:10 sb4 01/30 08:21 Order name: CBC with Diff; Complete Time: 08:52 sb4 01/30 08:21 Order name: Hepatic Function; Complete Time: 09:10 sb4 01/30 08:21 Order name: Magnesium; Complete Time: 09:10 sb4 01/30 08:21 Order name: Protime (+inr); Complete Time: 08:53 sb4 01/30 08:21 Order name: Ptt, Activated; Complete Time: 08:53 sb4 01/30 08:21 Order name: Troponin High Sensitivity; Complete Time: 09:10 sb4 01/30 08:21 Order name: CT Head Brain wo Cont; Complete Time: 09:18 sb4 01/30 08:21 Order name: EKG; Complete Time: 08:22 sb4 01/30 08:21 Order name: Cardiac monitoring; Complete Time: sb4 01/30 08:21 Order name: EKG - Nurse/Tech; Complete Time: : sb4 01/30 08:21 Order name: IV Saline Lock; Complete Time: : sb4 01/30 08:21 Order name: Labs collected and sent; Complete Time: sb4 01/30 08:21 Order name: O2 Per Protocol; Complete Time: : sb4 01/30 08:21 Order name: O2 Sat Monitoring; Complete Time: sb4 EC:33 Rate is 82 beats/min. Rhythm is regular, Normal Sinus Rhythm. MN interval is normal at sb4 152 msec. QRS interval is normal at 76 msec. QT interval is normal at 401 msec. No Q waves. T waves are Normal. No ST changes noted. Clinical impression: Normal ECG. Interpreted by me. Reviewed by me. Administered Medications: 08:32 Drug: Keppra IV 1000 mg IV at calculated rate once Route: IV; Rate: calculated rate; ll1 Site: right antecubital; :29 Follow up: IV Status: Completed infusion; IV Intake: 10ml ll1 08:32 Drug: NS 0.9% IV 1000 ml IV at 1 bolus Per protocol; 1000 mL bolus Route: IV; Rate: 1 ll1 bolus; Site: right antecubital; :29 Follow up: IV Status: Completed infusion; IV Intake: 1000ml ll1 10:15 Drug: Acetaminophen PO 1000 mg PO once Route: PO; ll1 10:29 Follow up: Response: No adverse reaction ll1 Disposition Summary: 01/30/23 09:28 Discharge Ordered Notes: Location: Home sb4 Problem: new sb4 Symptoms: have improved sb4 Condition: Stable sb4 Diagnosis - Epilepsy, unspecified, not intractable, without status epilepticus sb4 Followup: sb4 - With: Emergency Department - When: As needed - Reason: Trouble breathing, Worsening of condition Discharge Instructions: - Discharge Summary Sheet sb4 - Seizure, Adult sb4 Forms: - Medication Reconciliation Form sb4 - Thank You Letter sb4 - Antibiotic Education sb4 - Prescription Opioid Use sb4 - Patient Portal Instructions sb4 - Leadership Thank You Letter sb4 Addendum: 01/31/2023 11:02 I was immediately available for consultation during this patient's visit. I did not e c2 personally see the patient or guide the patient's care. Signatures: Dispatcher [employer] Montserrat Sharma, RN RN ll1 Stephie Nguyen PA-C PA-C sb4 Ad Garcia MD MD ec2
--- NOTE | 2023-01-30 09:29 | ER ---
Nurse's Notes [facility] Name: Raheem Feliz Age: 38 yrs Sex: Male : 1985 Arrival Date: 01/30/2023 Time: 08:17 Bed 8 Private MD: Diagnosis: Epilepsy, unspecified, not intractable, without status epilepticus Presentation: 01/30 08:18 Chief complaint: Patient states: BRAND only EMS states: 2 seizures this morning, 5 AM and ll1 7:25 AM. Postictal initially. Coronavirus screen: Client denies travel out of the [place] in the last 14 days. At this time, the client does not indicate any symptoms associated with coronavirus-19. Ebola Screen: Patient denies travel to an Ebola-affected area in the 21 days before illness onset. Initial Sepsis Screen: Does the patient meet any 2 criteria? No. Patient's initial sepsis screen is negative. Does the patient have a suspected source of infection? No. Patient's initial sepsis screen is negative. Risk Assessment: Do you want to hurt yourself or someone else? Patient reports no desire to harm self or others. Onset of symptoms was January 30, 2023. 08:18 Method Of Arrival: EMS ll1 08:18 Acuity: BIBI 3 ll1 Triage Assessment: 08:20 General: Appears uncomfortable, Behavior is calm, cooperative, appropriate for age. ll1 Pain: Complains of pain in head Pain currently is 8 out of 10 on a pain scale. Quality of pain is described as aching. Neuro: Reports headache seizure x 2 this morning. Cardiovascular: No deficits noted. Respiratory: No deficits noted. Historical: - Allergies: 08:19 No Known Drug Allergies; ll1 - PMHx: 08:19 Hypertensive disorder; Seizure; traumatic brain injury; ll1 - Immunization history:: Adult Immunizations up to date. - Social history:: Smoking status: Patient denies any tobacco usage or history of. Screenin:55 [facility] ED Fall Risk Assessment (Adult) Score/Fall Risk Level 0 - 2 = Low Risk ll1 Oriented to surroundings, Maintained a safe environment, Educated pt \T\ family on fall prevention, incl call for assistance when getting out of bed, Hourly rounding (assess needs \T\ fall precautionary measures) done. Abuse screen: Denies threats or abuse. Nutritional screening: No deficits noted. Tuberculosis screening: No symptoms or risk factors identified. Assessment: 09:00 Reassessment: No changes from previously documented assessment. Patient and/or family ll1 updated on plan of care and expected duration. Pain level reassessed. Vital Signs: 08:18 BP 132 / 84; Pulse 75; Resp 17; Temp 97.7; Pulse Ox 97% ; Pain 8/10; ll1 09:50 BP 138 / 77; Pulse 76; Resp 16; Pulse Ox 99% on R/A; ll1 08:18 Pain Scale: Adult ll1 [place] Coma Score: 08:20 Eye Response: spontaneous(4). Motor Response: obeys commands(6). Verbal Response: ll1 oriented(5). Total: 15. ED Course: 08:14 Seizure precautions initiated. ll1 08:18 Patient arrived in ED. ll1 08:19 Stephei Nguyen PA-C is PHCP. sb4 08:19 Ad Garcia MD is Attending Physician. sb4 08:19 Triage completed. ll1 08:20 Arm band placed on Patient placed in an exam room, on a stretcher. ll1 08:25 Montserrat Lilly, YENI is Primary Nurse. ll1 08:30 Inserted saline lock: 22 gauge in right antecubital area, using aseptic technique. ll1 Blood collected. 08:43 CT Head Brain wo Cont In Process Unspecified. EDMS 10:27 No provider procedures requiring assistance completed. IV discontinued, intact, ll1 bleeding controlled, No redness/swelling at site. Pressure dressing applied. 10:28 Patient has correct armband on for positive identification. Bed in low position. Call ll1 light in reach. Provided Education on: n/a. Administered Medications: 08:32 Drug: Keppra IV 1000 mg IV at calculated rate once Route: IV; Rate: calculated rate; ll1 Site: right antecubital; 10:29 Follow up: IV Status: Completed infusion; IV Intake: 10ml ll1 08:32 Drug: NS 0.9% IV 1000 ml IV at 1 bolus Per protocol; 1000 mL bolus Route: IV; Rate: 1 ll1 bolus; Site: right antecubital; 10:29 Follow up: IV Status: Completed infusion; IV Intake: 1000ml ll1 10:15 Drug: Acetaminophen PO 1000 mg PO once Route: PO; ll1 10:29 Follow up: Response: No adverse reaction ll1 Medication: : VIS not applicable for this client. ll1 Intake: : IV: 10ml; Total: 10ml. ll1 10: IV: 1000ml; Total: 1010ml. ll1 Outcome: Discharge ordered by MD. [email or web address] 09:55 Patient left the ED. ll1 :55 Discharged to home via wheelchair, ll1 :55 Condition: stable :55 Discharge instructions given to patient, family, Instructed on discharge instructions, follow up and referral plans. Demonstrated understanding of instructions, follow-up care, Signatures: Dispatcher [employer] Montserrat Sharma RN RN ll1 Stephie Nguyen, PADignaC PAChristiano sb4
[2023-01-30 09:59] VITALS: BP 132/84; TEMP 97.7; O2SAT 97
[2023-01-30] MEDS ORDERED: ACETAMINOPHEN 500 MG TAB ONE (10:04)
--- NOTE | 2023-02-01 07:54 | EKG ---
Test Date: 2023-01-30 Test Time: 08:30:52 Internal Controls Analyst: IBETH MEASUREMENT RESULTS: Intervals: Rate: 82 VA: 152 QRSD: 76 QT: 344 QTc: 401 [place]: P: 59 VA: 152 QRS: 99 T: 61 INTERPRETIVE STATEMENTS: Normal sinus rhythm Normal ECG Compared to ECG 12/02/2022 15:39:22 Sinus tachycardia no longer present Electronically Signed On 02-01-23 07:51:23 CDT by Asher Toney
== END 2023-01-30 09:55 | disposition home or self-care (01) ==
LOC: ER 08:17
DX: G40.909 Epilepsy, unspecified, not intractable, without status epilepticus (principal); Z87.820 Personal history of traumatic brain injury; I10 Essential (primary) hypertension
CPT/HCPCS: 96365; 93005; 85025; 80048; 36415; 83735; 85610; 80076; 85730; 84484; 70450; 99284; 96366; J1953; J7030

== ENCOUNTER 2023-07-07 11:21 | Emergency (ER) | payer SELFPAY ==
--- OUTSIDE RECORDS SUMMARY | 2023-07-07 11:24 | XMS REPORT | Continuity of Care Document ---
Author Name Unknown Address [address] [place] [address] [facility] thconnect Address [address] [place] [address] Care Team Providers Care Ticket Writer Name Role Phone Nickie Cagle Primary Care Physician Doctor Unassigned, [place] Attending Clinician U navailable Adonis Haque Attending Clinician Adonis RING Attending Clinician Unavailable Adonis RING Admitting Clinician Unavailable Payers Payer Name Policy Type Policy Number Effective Date Expirati on Date Source Problems Condition Name Condition Details Condition Category Status Onset Date Resolution Date Last Treatment Date Treating Clinician Comments Source Bacterial pneumonia Bacterial pneumonia Disease Active 09-24 00:00: 00 Overview: Formattin g of this note might be different from the original. 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 Agitation [facility] Allergies, Adverse Reactions, Alerts Allergy Name Allergy Type Status Severity Reaction(s) Onset Date Inactive Date Treating Clinician Comments Source NO KNOWN ALLERGIE S Drug Class Active [facility] Social History Social Habit Start Date Stop Date Quantity Comments Source Sex Assigned At 1985 00:00:00 1985 00:00:00 [facility] Smoking Status Start Date Stop Date Source Tobacco smoking consumption unknown [facility] Medications Ordered Medication Name Filled Medication Name Start Date Stop Date Current Medication? Ordering Clinician Indication Dosage Frequency Signature (SIG) Comments Components Source doxycycline hyclate 100 mg capsule 08-29 00:00: 00 Yes [id number] 100mg Take 1 capsule by mouth 2 (two) times daily. [facility] ibuprofen 600 mg tablet 08-29 00:00: 00 Yes [id number] 600mg Take 1 tablet by mouth every 6 (six) hours as needed for Pain (scale 4-6). [facility] ADVIL PM ORAL 11-03 14:35: 21 Yes None Entered [facility] TYLENOL 325 MG ORAL TAB 11-03 14:35: 20 Yes None Entered [facility] CARBAMAZEPI NE 300 MG ORAL CM12 11-03 00:00: 00 Yes take 3 tablets by mouth twice daily [facility] ZYPREXA 5 MG ORAL TAB 11-03 00:00: 00 Yes take one tablet twice daily [facility] TRIMETHOPRI M-SULFAMETH OXAZOLE 160-800 MG ORAL TAB 11-03 00:00: 00 Yes take one tablet twice a day for 7 days [facility] HYDROCODONE -ACETAMINOP HEN 7.5-325 MG ORAL TAB 10-01 00:00: 00 Yes Use as directed Univers [facility] OLANZAPINE 5 MG ORAL TAB 10-01 00:00: 00 Yes Take 1 PO BID Univers [facility] LEVOFLOXACI N 500 MG ORAL TAB 10-01 00:00: 00 Yes Take 1 daily for 3 days Univers [facility] FLUCONAZOLE 200 MG ORAL TAB 10-01 00:00: 00 Yes Take 1 daily for 3 days Univers [facility] LEVETIRACET AM 750 MG ORAL TAB 10-01 00:00: 00 Yes Take 2 via tube BID Univers [facility] THIAMINE HCL 100 MG ORAL TAB 10-01 00:00: 00 Yes 1 Tab Enteral DAILY Univers [facility] OXCARBAZEPI NE 300 MG ORAL TAB 10-01 00:00: 00 Yes 3 Tab Oral BID Univers [facility] TRYPSIN-BAL FARNAZ-CASTOR OIL [id number] UNIT-MG-MG/ GRAM TOPICAL OINT 10-01 00:00: 00 Yes Topical BID Univers [facility] FOLIC ACID 1 MG ORAL TAB 10-01 00:00: 00 Yes 1 Tab Oral DAILY Univers [facility] MULTIVITAMI N ORAL LIQD 10-01 00:00: 00 Yes 5 mL Enteral DAILY Univers [facility] CLONAZEPAM 2 MG ORAL TAB 10-01 00:00: 00 Yes 1 Tab Oral BID Univers [facility] CLONAZEPAM 2 MG ORAL TAB 05-29 00:00: 00 Yes 2 Tab Oral Q6HA [facility] PROPRANOLOL 20 MG ORAL TAB 05-29 00:00: 00 Yes 1 Tab Oral BID Univers [facility] Procedures Procedure Date / Time Performed Performing Clinician Source AUTHORIZATION FOR RELEASE OF PHI 2022-08-13 05:01:00 Doctor Unassigned, [place] [facility] Encounters Start Date/Time End Date/Time Encounter Type Admission Type Attending Clinicians Care Facility Care Department Encounter ID Source 2022-08-13 00:00:00 2022-08-13 00:00:00 Orders Only Doctor Unassigned, [place] [facility] [id number] [facility] 2019-08-29 22:18:14 2019-08-30 00:17:00 Emergency Adonis Ring [facility] [id number]..[id number] 2019-08-29 22:18:14 2019-08-30 00:17:00 Emergency X MARÍA ELENA, Adonis [facility] ERT [id number] [facility] 2019-08-29 00:00:00 2019-08-29 00:00:00 Orders Only Doctor Unassigned, [place] [facility] [id number]
[2023-07-07 12:18] LABS: Sqamous Epithelial <5 /HPF (None Seen); Urine Bacteria 20-50 /HPF (<20); Urine Culture Reflex Order REFLEXED; Urine RBC >50 /HPF (None Seen); Urine WBC >50 /HPF (<5); Urine WBC Clump Many /HPF (None Seen)
[2023-07-07 12:20] LABS: Specific Gravity 1.019 (1.005-1.030); Urine Bilirubin NEGATIVE (Negative); Urine Blood 3+ (OVER) (Negative); Urine Clarity Extremely Turbid (Clear); Urine Color Light-Orange (Yellow); Urine Glucose NEGATIVE (Negative); Urine Ketones NEGATIVE (Negative); Urine Microscopic Reflex YN NO UMIC; Urine Nitrite 1+ (Negative); Urine Protein 1+ (Negative); Urine Urobilinogen Normal (Normal); Urine pH 6.5 (5.0-7.0)
--- NOTE | 2023-07-07 13:26 | ER ---
Nurse's Notes [facility] Name: Raheem Feliz Age: 38 yrs Sex: Male : 1985 Arrival Date: 07/07/2023 Time: 11:21 Bed 9 Private MD: Diagnosis: UTI/ Urinary tract infection, site not specified Presentation: 07/06 11:34 Chief complaint: Blood in urine and dysuria since this morning. Coronavirus screen: At hb this time, the client does not indicate any symptoms associated with coronavirus-19. Ebola Screen: No symptoms or risks identified at this time. Initial Sepsis Screen: Does the patient meet any 2 criteria? No. Patient's initial sepsis screen is negative. Does the patient have a suspected source of infection?. Risk Assessment: Do you want to hurt yourself or someone else? Patient reports no desire to harm self or others. Onset of symptoms was July 07, 2023. 11:34 Method Of Arrival: Ambulatory hb 11:34 Acuity: BIBI 4 hb Triage Assessment: 11:36 General: Appears in no apparent distress. Behavior is calm, cooperative. Pain: Pain hb currently is 8 out of 10 on a pain scale. Neuro: Level of Consciousness is awake, alert, obeys commands, Oriented to person, place, time, situation. Cardiovascular: Patient's skin is warm and dry. Respiratory: Respiratory effort is even, unlabored, Respiratory pattern is regular, symmetrical. : Reports dysuria, blood in urine. Historical: - Allergies: 11:36 No Allergy Information Available; hb - Home Meds: 11:36 None [Active]; hb - PMHx: 11:36 Hypertensive disorder; Seizure; traumatic brain injury; hb - Immunization history:: Adult Immunizations up to date. - Infectious Disease History:: Denies. - Social history:: Smoking status: Patient reports the use of cigarette tobacco products, smokes one pack cigarettes per day. Screenin:09 [facility] ED Fall Risk Assessment (Adult) History of falling in the last 3 months, hb including since admission No falls in past 3 months (0 pts) Confusion or Disorientation No (0 pts) Intoxicated or Sedated No (0 pts) Impaired Gait No (0 pts) Mobility Assist Device Used No (0 pt) Altered Elimination No (0 pt) Score/Fall Risk Level 0 - 2 = Low Risk Oriented to surroundings, Maintained a safe environment, Educated pt \T\ family on fall prevention, incl call for assistance when getting out of bed. Abuse screen: Denies threats or abuse. Denies injuries from another. Nutritional screening: No deficits noted. Tuberculosis screening: No symptoms or risk factors identified. Assessment: 12:24 General: Appears in no apparent distress. Behavior is calm, cooperative. Pain: Denies mb9 pain. Neuro: Nguyen Agitation-Sedation Scale (RASS): 0 - Alert and Calm Level of Consciousness is awake, alert, obeys commands, Oriented to person, place, time, situation, Appropriate for age. Cardiovascular: Patient's skin is warm and dry. Respiratory: Airway is patent Respiratory effort is even, unlabored, Respiratory pattern is regular, symmetrical. GI: No signs and/or symptoms were reported involving the gastrointestinal system. : Reports urinating blood. EENT: No signs and/or symptoms were reported regarding the EENT system. Derm: Skin is pink, warm \T\ dry. Musculoskeletal: Range of motion: intact in all extremities. Vital Signs: 11:34 BP 157 / 88; Pulse 87; Resp 16; Temp 98.5(TE); Pulse Ox 100% on R/A; Weight 90.72 kg; hb Height 6 ft. 1 in. ; Pain 8/10; 13:29 BP 142 / 88; Pulse 81; Resp 18; Pulse Ox 100% on R/A; mb9 11:34 Body Mass Index 26.39 (90.72 kg, 185.42 cm) hb 11:34 Pain Scale: Adult hb ED Course: 11:25 Patient arrived in ED. im 11:28 Vinod Montalvo MD is Attending Physician. bo1 11:36 Triage completed. hb 11:36 Arm band placed on. hb 11:59 Urinalysis w/ reflexes Sent. ld1 11:59 Urine collected: clean catch specimen, cloudy, blood tinged. ld1 12:09 Roselia Pena RN is Primary Nurse. mb9 12:09 Patient has correct armband on for positive identification. Bed in low position. Call hb light in reach. Provided Education on: tests, result times. 12:09 No provider procedures requiring assistance completed. hb 13:30 Patient did not have IV access during this emergency room visit. mb9 Administered Medications: No medications were administered Medication: 12:10 VIS not applicable for this client. mb9 Outcome: 13:25 Discharge ordered by . bo1 13:30 Discharged to home ambulatory, mb9 13:30 Condition: stable 13:30 Discharge instructions given to patient, Instructed on discharge instructions, follow up and referral plans. Demonstrated understanding of instructions, follow-up care, medications, Prescriptions given X 1, 13:30 Patient left the ED. mb9 Addendum: 07/09/2023 10:27 Addendum: Culture Results: Positive urine culture. No further action required. Bacteria h b sensitive to prescribed antibiotic. Signatures: Erika Maldonado, RN RN Ceci Mclean RN RN ld1 Roselia Pena RN RN mb9 Karla Chapa Benjamin, MD MD bo1
--- NOTE | 2023-07-07 13:26 | EDPHYS ---
Physician Documentation [facility] Name: Raheem Feliz Age: 38 yrs Sex: Male : 1985 Arrival Date: 07/07/2023 Time: 11:21 Bed 9 Private MD: ED Physician Vinod Montalvo HPI: 07/06 11:35 This 38 yrs old Male presents to ER via Ambulatory with complaints of bo1 Urinating blood. 11:35 Pt c/o of urinating blood this morning. Pt also states he's had burning with urination. bo1 Onset: The symptoms/episode began/occurred suddenly, this morning. Severity of symptoms: in the emergency department the symptoms are unchanged are worse mildly. Pt has not had this before. 11:37 Pt states he just got released from long-term.. bo1 Historical: - Allergies: 11:36 No Allergy Information Available; hb - Home Meds: 11:36 None [Active]; hb - PMHx: 11:36 Hypertensive disorder; Seizure; traumatic brain injury; hb - Immunization history:: Adult Immunizations up to date. - Infectious Disease History:: Denies. - Social history:: Smoking status: Patient reports the use of cigarette tobacco products, smokes one pack cigarettes per day. ROS: 11:40 Abdomen/GI: Negative for nausea and vomiting, nausea, vomiting, and diarrhea, rectal bo1 bleeding, Exam: 11:37 Abdomen/GI: Palpation: abdomen is soft and non-tender, soft, bo1 11:37 Back: No CVAT, 11:37 : Deferred. Pt is not in a room. Hx and exam in a chair., Vital Signs: 11:34 BP 157 / 88; Pulse 87; Resp 16; Temp 98.5(TE); Pulse Ox 100% on R/A; Weight 90.72 kg; hb Height 6 ft. 1 in. ; Pain 8/10; 13:29 BP 142 / 88; Pulse 81; Resp 18; Pulse Ox 100% on R/A; mb9 11:34 Body Mass Index 26.39 (90.72 kg, 185.42 cm) hb 11:34 Pain Scale: Adult hb MDM: 11:56 ED course: Pt is stable, waiting on UA results. Urine appeared to have "blood" in it. bo1 Gross hematuria.. 13:25 Patient medically screened. bo1 07/06 11:33 Order name: Urinalysis w/ reflexes; Complete Time: 13:17 bo1 07/06 13:19 Interpretation: Abnormal. bo1 07/06 12:22 Order name: Urine Culture EDMS Administered Medications: No medications were administered Disposition Summary: 07/07/23 13:25 Discharge Ordered Notes: Location: Home bo1 Problem: new bo1 Symptoms: are unchanged bo1 Condition: Stable bo1 Diagnosis - UTI/ Urinary tract infection, site not specified bo1 Discharge Instructions: - Discharge Summary Sheet bo1 - Urinary Tract Infection, Adult bo1 Forms: - Medication Reconciliation Form bo1 - Thank You Letter bo1 - Antibiotic Education bo1 - Prescription Opioid Use bo1 - Patient Portal Instructions bo1 - Leadership Thank You Letter bo1 Prescriptions: - Cipro 500 mg Oral Tablet - take 1 tablet ORAL route every 12 hours for 10 days; 20 tablet; Refills: 0, bo1 Product Selection Permitted Signatures: Dispatcher [employer] EDMS Erika Maldonado RN RN [facility] MD bo1
[2023-07-07 13:57] VITALS: BP 142/88; TEMP 98.5; O2SAT 100
== END 2023-07-07 13:30 | disposition home or self-care (01) ==
LOC: ER 11:21
DX: N39.0 Urinary tract infection, site not specified (principal)
CPT/HCPCS: 81003; 87077; 87086; 87088; 87186; 99283

== ENCOUNTER 2024-05-13 04:00 | Emergency (ER) | payer OTHER, SELFPAY ==
--- OUTSIDE RECORDS SUMMARY | 2024-05-13 04:03 | XMS REPORT | Continuity of Care Document ---
Author Name Unknown Address [address] [place] [address] [facility] thconnect Address [address] [place] [address] Care Team Providers Care Oncology Physician Name Role Phone Nickie Cagle Primary Care Physician Doctor Unassigned, [place] Attending Clinician U navailable Adonis Haque Attending [...] different from the original. ICD10 Diagnosis Term Clinical Nurse Occupational Medicine Utility [facility] Urinary tract infection, site not specified Urinary tract infection, site not specified Disease Active 09-24 00:00: 00 Overview: Formattin g of this note might be different from the original. Fungal [facility] Gastrostom y status Gastrostom y status Disease Active 09-24 00:00: 00 [facility] Myoclonus Myoclonus Disease Active 09-15 00:00: 00 [facility] Persistent vegetative state Persistent vegetative state Disease Active 09-15 00:00: 00 [facility] Other and unspecifie d special symptom or syndrome, not elsewhere classified Other and unspecifie d special symptom or syndrome, not elsewhere classified Disease Active 09-15 00:00: 00 Overview: Formattin g of this note might be different from the original. Agitation [facility] Allergies, Adverse Reactions, Alerts Allergy Name Allergy Type Status Severity Reaction(s) Onset Date Inactive Date Treating Clinician Comments Source NO KNOWN ALLERGIE S Drug Class Active [facility] Social History Social Habit Start Date Stop Date Quantity Comments Source Sex Assigned At 1985 00:00:00 1985 00:00:00 [facility] Smoking Status Start Date Stop Date Source Tobacco smoking consumption unknown [facility] Medications Ordered Medication Name Filled Medication Name Start Date Stop Date Current Medication? Ordering Clinician Indication Dosage Frequency Signature (SIG) Comments Components Source doxycycline hyclate 100 mg capsule 08-29 00:00: 00 Yes [id number] 100mg Take 1 capsule by mouth 2 (two) times daily. [facility] ibuprofen 600 mg tablet 08-29 00:00: 00 Yes [id number] 600mg Take 1 tablet by mouth every 6 (six) hours as needed for Pain (scale 4-6). [facility] ADVIL PM ORAL 11-03 14:35: 21 Yes None Entered [facility] TYLENOL 325 MG ORAL TAB 11-03 14:35: 20 Yes None Entered [facility] CARBAMAZEPI NE 300 MG ORAL CM12 11-03 00:00: 00 Yes take 3 tablets by mouth twice daily [facility] ZYPREXA 5 MG ORAL TAB 11-03 00:00: 00 Yes take one tablet twice daily [facility] TRIMETHOPRI M-SULFAMETH OXAZOLE 160-800 MG ORAL TAB 11-03 00:00: 00 Yes take one tablet twice a day for 7 days [facility] HYDROCODONE -ACETAMINOP HEN 7.5-325 MG ORAL TAB 10-01 00:00: 00 Yes Use as directed [facility] OLANZAPINE 5 MG ORAL TAB 10-01 00:00: 00 Yes Take [address] [facility] LEVOFLOXACI N 500 MG ORAL TAB 10-01 00:00: 00 Yes Take 1 daily for [address] [facility] FLUCONAZOLE 200 MG ORAL TAB 10-01 00:00: 00 Yes Take 1 daily for [address] [facility] LEVETIRACET AM 750 MG ORAL TAB 10-01 00:00: 00 Yes Take 2 via tube BID [facility] THIAMINE HCL 100 MG ORAL TAB 10-01 00:00: 00 Yes 1 Tab Enteral DAILY [facility] OXCARBAZEPI NE 300 MG ORAL TAB 10-01 00:00: 00 Yes 3 Tab Oral BID [facility] TRYPSIN-BAL FARNAZ-CASTOR OIL [id number] UNIT-MG-MG/ GRAM TOPICAL OINT 10-01 00:00: 00 Yes Topical BID [facility] FOLIC ACID 1 MG ORAL TAB 10-01 00:00: 00 Yes 1 Tab Oral DAILY [facility] MULTIVITAMI N ORAL LIQD 10-01 00:00: 00 Yes 5 mL Enteral DAILY [facility] CLONAZEPAM 2 MG ORAL TAB 10-01 00:00: 00 Yes 1 Tab Oral BID [facility] CLONAZEPAM 2 MG ORAL TAB 05-29 00:00: 00 Yes 2 Tab Oral Q6HA [facility] PROPRANOLOL 20 MG ORAL TAB 05-29 00:00: 00 Yes 1 Tab Oral BID [facility] Procedures Procedure Date / Time Performed Performing Clinician Source AUTHORIZATION FOR RELEASE OF PHI 2022-08-13 05:01:00 Doctor Unassigned, Farner [facility] Encounters Start Date/Time End Date/Time Encounter Type Admission Type Attending Clinicians Care Facility Care Department Encounter ID Source 2022-08-13 00:00:00 2022-08-13 00:00:00 Orders Only Doctor Unassigned, Farner [facility] [id number] [facility] 2019-08-29 22:18:14 2019-08-30 00:17:00 Emergency Adonis Ring [facility] [id number] 2019-08-29 22:18:14 2019-08-30 00:17:00 Emergency X MARÍA ELENA, Adonis RUST ERT [id number] [facility] 2019-08-29 00:00:00 2019-08-29 00:00:00 Orders Only Doctor Unassigned, Farner [facility] [id number]
[2024-05-13 04:26] LABS: Absolute Basophils 0.1 K/uL (0-0.5); Absolute Eosinophils 0.1 K/uL (0-0.5); Absolute Lymphocytes (CBC) 2.2 K/uL (0.7-4.9); Absolute Monocytes 0.7 K/uL (0.1-1.3); Basophils % 0.7 % (0-1.3); Eosinophils % 0.6 % (0-4.4); Hematocrit 43.8 % (39.6-49.0); Lymphocytes % 18.3 % (15.3-44.8); MCH 31.1 pg (27.0-35.0); MCHC 34.2 g/dL (32.0-36.0); MCV 90.8 fL (80-100); MPV 7.6 fL (7.6-11.3); Monocytes % 6.1 % (3.3-12.3); Neutrophils % 74.3 % (41.7-73.7); Platelets 290 thou/uL (152-406); RBC Red Blood Cell Count 4.83 M/uL (4.33-5.43); Red Cell Distribution Width 13.5 % (12.1-15.2)
[2024-05-13] MEDS ORDERED: ONDANSETRON 4 MG/2 ML VIAL ONE (04:34)
[2024-05-13] MEDS ORDERED: levETIRAcetam 500 MG TAB ONE (04:35)
[2024-05-13] MEDS ORDERED: LORazepam 2 MG/ML VIAL ONE (04:35)
[2024-05-13] MEDS ORDERED: KETOROLAC 30 MG/ML INJ ONE (04:36)
[2024-05-13] MEDS ORDERED: LEVETIRACETAM 500 MG/5 ML VIAL IV ONE (04:36)
[2024-05-13] MEDS ORDERED: NEOMYCIN/BAC/POLY OPTH 3.5GM ONE (04:36)
[2024-05-13 04:37] LABS: PT Prothrombin Time 12.5 SECONDS (9.4-12.5); PTT, Activated Partial Thromb 31.8 SECONDS (24.3-36.9); Protime INR 1.19
[2024-05-13] MEDS ORDERED: NA CHLORIDE 0.9% 100 ML ONE (04:37)
[2024-05-13] MEDS ORDERED: TDAP (DIPHTH,PERTUSS(ACELL),TET VAC) 0.5 ML VIAL IMVAC ONE (04:37)
[2024-05-13] MEDS ORDERED: NA CHLORIDE 0.9% 1,000 ML ONE (04:37)
[2024-05-13 04:50] LABS: ALT/SGPT 18 U/L (16-61); AST/SGOT 15 U/L (15-37); Albumin/Globulin Ratio 1.1 (1.1-1.8); Alkaline Phosphatase 124 U/L (45-117); Anion Gap 7.8 mEq/L (5.0-15.0); BUN Blood Urea Nitrogen 11 mg/dL (7-18); Bicarbonate 28 mEq/L (21-32); Bilirubin Total 0.5 mg/dL (0.2-1.0); Globulin 3.7 g/dL (2.3-3.5); Glomerular Filtration Rate 90 ml/min (=/>90); Glucose Level 98 mg/dL (74-106); Potassium 3.8 mEq/L (3.5-5.1); Protein, Total 7.7 g/dL (6.4-8.2); Sodium Level 137 mEq/L (136-145)
[2024-05-13 05:02] LABS: Bilirubin Direct < 0.2 mg/dL (0-0.2); Bilirubin Indirect, Calculated 0.3 mg/dL (0.2-0.8)
--- NOTE | 2024-05-13 06:18 | ER ---
Nurse's Notes [facility] Name: Raheem Feliz Age: 39 yrs Sex: Male : 1985 Arrival Date: 05/13/2024 Time: 04:00 Bed 4 Private MD: Diagnosis: Epileptic seizures related to external causes, not intractable;Abrasion, left knee;Abrasion, right knee;Pain in left knee;Pain in right knee;Headache Presentation: 05/13 04:11 Chief complaint: Patient states: PER EMS PT HAS HAD 3 SEIZURES IN THE LAST 2 DAYS. br2 YESTERDAY PT FELL OUTSIDE CAUSING ABRASIONS TO BILATERAL KNEE. PER EMS PT'S MOTHER WITNESS SEIZURE TONIGHT THAT LASTED APPROX 3 MINUTES. PT HASN'T BEEN TAKING KEPPRA...DOESN'T REMEMBER THE LAST TIME HE TOOK IT. PT C/O OF HEADACHE TODAY. Coronavirus screen: Client denies travel out of the [place] in the last 14 days. Ebola Screen: Patient denies exposure to infectious person. Initial Sepsis Screen: Does the patient meet any 2 criteria? No. Patient's initial sepsis screen is negative. Does the patient have a suspected source of infection? No. Patient's initial sepsis screen is negative. Risk Assessment: Do you want to hurt yourself or someone else? Patient reports no desire to harm self or others. Onset of symptoms is unknown. 04:11 Method Of Arrival: EMS: [facility] br2 04:11 Acuity: BIBI 3 br2 Triage Assessment: 04:16 General: Appears uncomfortable, Behavior is calm, cooperative. Pain: Complains of pain br2 in forehead. 04:16 Neuro: Nguyen Agitation-Sedation Scale (RASS): 0 - Alert and Calm Level of br2 Consciousness is awake, alert, confused, Oriented to person. Historical: - Allergies: 04:16 No Allergy Information Available; br2 - PMHx: 04:16 Hypertensive disorder; Seizure; traumatic brain injury; br2 - Immunization history:: Adult Immunizations not up to date. - Infectious Disease History:: Denies. - Family history:: not pertinent. - Social history:: Smoking status: Patient reports the use of cigarette tobacco products, smokes one pack cigarettes per day. Patient uses alcohol, on a daily basis. street drugs, marijuana. Screenin:11 [facility] ED Fall Risk Assessment (Adult) History of falling in the last 3 months, br2 including since admission Yes- fall prone (multiple falls) (3 pts) Confusion or Disorientation Yes (5 pts) Intoxicated or Sedated No (0 pts) Impaired Gait Yes (1 pt) Mobility Assist Device Used No (0 pt) Altered Elimination No (0 pt) Score/Fall Risk Level 3 or more points = High Risk Maintained a safe environment, Utilized family, sitter, or virtual children's librarian as indicated. Abuse screen: Denies threats or abuse. Denies injuries from another. Nutritional screening: No deficits noted. Tuberculosis screening: No symptoms or risk factors identified. Vital Signs: 04:11 BP 134 / 74; Pulse 80; Resp 18; Temp 97.1; Pulse Ox 98% on R/A; Weight 90.72 kg; Height br2 6 ft. 2 in. ; Pain 10/10; 06:27 BP 107 / 55; Pulse 80; Resp 18; Pulse Ox 98% ; ha1 04:11 Body Mass Index 25.68 (90.72 kg, 187.96 cm) br2 04:11 Pain Scale: Adult br2 Fela Coma Score: 04:16 Eye Response: spontaneous(4). Motor Response: obeys commands(6). Verbal Response: br2 oriented(5). Total: 15. ED Course: 04:00 Patient arrived in ED. [email or web address] 04:01 Gilberto Lamb MD is Attending Physician. [facility] 04:11 Florinda Aldana RN is Primary Nurse. br2 04:11 Patient has correct armband on for positive identification. Fall risk band placed. Bed br2 in low position. Call light in reach. Adult w/ patient. Seizure precautions initiated. Provided Education on: PLAN OF CARE. 04:11 Inserted saline lock: 20 gauge in right antecubital area, using aseptic technique. br2 Blood collected. Flushed with 10 mL NS. 04:16 Triage completed. br2 04:16 Arm band placed on left wrist. br2 04:21 Acetaminophen Sent. br2 04:21 Basic Metabolic Panel Sent. br2 04:21 CBC with Diff Sent. br2 04:21 ETOH Level Sent. br2 04:21 Hepatic Function Sent. br2 04:21 PT-INR Sent. br2 04:21 Ptt, Activated Sent. br2 04:21 Salicylate Sent. br2 04:21 Urinalysis w/ reflexes Sent. br2 04:37 CT Head C Spine In Process Unspecified. EDMS 05:07 Knee Left 3 View XRAY In Process Unspecified. EDMS 05:08 Knee Right 3 View XRAY In Process Unspecified. EDMS 06:18 Anthony Pierson MD is Referral Physician. flo 06:28 No provider procedures requiring assistance completed. intact, bleeding controlled, No ha1 redness/swelling at site. Pressure dressing applied. Administered Medications: 04:55 Drug: Ketorolac IVP 15 mg IVP once Route: IVP; Site: right antecubital; br2 06:31 Follow up: Response: No adverse reaction ha1 04:55 Drug: Ondansetron IVP 4 mg IVP once; over 2 minutes Route: IVP; Site: right antecubital;br2 06:31 Follow up: Response: No adverse reaction ha1 04:56 Drug: Keppra IV 1000 mg IV at per protocol once Route: IV; Rate: per protocol; Site: br2 right antecubital; 06:30 Follow up: Response: No adverse reaction; IV Status: Completed infusion ha1 04:56 Drug: Boostrix Tdap IM 0.5 ml IM once; as a single dose Route: IM; Site: right deltoid; br2 06:30 Follow up: Response: No adverse reaction ha1 04:56 Drug: NS 0.9% IV 1000 ml IV at 1 bolus Per protocol; to be given as a bolus over 60 br2 minutes Route: IV; Rate: 1 bolus; Site: right antecubital; 06:31 Follow up: Response: No adverse reaction; IV Status: Completed infusion ha1 04:56 Drug: Ativan IVP 1 mg IVP once Route: IVP; Site: right antecubital; br2 06:30 Follow up: Response: No adverse reaction ha1 04:56 Drug: Bdgpbdba-Nhgdtwaiph-Jlhoptjga Topical Ointment 1 application Topical once Route: br2 Topical; Site: wound; 04:56 Drug: Keppra PO 500 mg PO once Route: PO; br2 06:31 Follow up: Response: No adverse reaction ha1 Medication: 06:29 VIS not applicable for this client. ha1 Outcome: 06:18 Discharge ordered by . flo 06:28 Discharged to home via wheelchair, ha1 06:28 Condition: stable 06:28 Discharge instructions given to patient, family, Instructed on discharge instructions, follow up and referral plans. Demonstrated understanding of instructions, follow-up care, 06:30 Patient left the ED. ha1 Signatures: Dispatcher [employer] Gilberto Yoder MD MD cha Jeffries, Jennifer [email or web address] Lamar Robertson RN RN ha1 Florinda Aldana RN RN br2 Corrections: (The following items were deleted from the chart) 04:59 04:16 Neuro: Nguyen Agitation-Sedation Scale (RASS): 0 - Alert and Calm Level of br2 Consciousness is awake, alert, obeys commands, Oriented to person, place, time, situation, br2
--- NOTE | 2024-05-13 06:18 | EDPHYS ---
Physician Documentation [facility] Name: Raheem Feliz Age: 39 yrs Sex: Male : 1985 Arrival Date: 05/13/2024 Time: 04:00 Bed 4 Private MD: Gilberto Harrison HPI: 05/13 04:05 This 39 yrs old Male presents to ER via Unassigned with complaints of Seizure. flo 04:05 The patient presents with a history of multiple seizures, an unknown number. Character flo of seizure(s): Loss of consciousness: it is not known if the patient experienced loss of consciousness, Motor activity: generalized, Incontinence: none, Apnea: the patient did not experience apnea, Circulation: the patient did not experience evidence of pulse disturbance. Seizure onset: yesterday. Context: the seizure(s) was witnessed, by family, mother, occurred at home. Seizure Hx: Cause: head injury, Last seizure: The patient's last seizure "not sure", Usual frequency: unknown. Associated injury: Head/face: Left lower extremity: Right lower extremity:. Current symptoms: Currently, the patient is not experiencing any symptoms, headache. The patient has experienced similar episodes in the past, multiple times. Historical: - Allergies: 04:16 No Allergy Information Available; br2 - PMHx: 04:16 Hypertensive disorder; Seizure; traumatic brain injury; br2 - Immunization history:: Adult Immunizations not up to date. - Infectious Disease History:: Denies. - Family history:: not pertinent. - Social history:: Smoking status: Patient reports the use of cigarette tobacco products, smokes one pack cigarettes per day. Patient uses alcohol, on a daily basis. street drugs, marijuana. ROS: 04:05 Constitutional: Negative for fever, chills, and weight loss, Eyes: Negative for injury, flo pain, redness, and discharge, ENT: Negative for injury, pain, and discharge, Neck: Negative for injury, pain, and swelling, Cardiovascular: Negative for chest pain, palpitations, and edema, Respiratory: Negative for shortness of breath, cough, wheezing, and pleuritic chest pain, Abdomen/GI: Negative for abdominal pain, nausea, vomiting, diarrhea, and constipation, Back: Negative for injury and pain, : Negative for injury, bleeding, discharge, and swelling, Skin: Negative for injury, rash, and discoloration, Psych: Negative for depression, anxiety, suicide ideation, homicidal ideation, and hallucinations, Allergy/Immunology: Negative for hives, rash, and allergies, Endocrine: Negative for neck swelling, polydipsia, polyuria, polyphagia, and marked weight changes, Hematologic/Lymphatic: Negative for swollen nodes, abnormal bleeding, and unusual bruising, 04:05 MS/extremity: Positive for abrasion, decreased range of motion, pain, tenderness, of the right leg and left leg, Exam: 04:05 Constitutional: This is a well developed, well nourished patient who is awake, alert, flo and in no acute distress. Head/Face: Normocephalic, atraumatic. Eyes: Pupils equal round and reactive to light, extra-ocular motions intact. Lids and lashes normal. Conjunctiva and sclera are non-icteric and not injected. Cornea within normal limits. Periorbital areas with no swelling, redness, or edema. ENT: Nares patent. No nasal discharge, no septal abnormalities noted. Tympanic membranes are normal and external auditory canals are clear. Oropharynx with no redness, swelling, or masses, exudates, or evidence of obstruction, uvula midline. Mucous membranes moist. Neck: Trachea midline, no thyromegaly or masses palpated, and no cervical lymphadenopathy. Supple, full range of motion without nuchal rigidity, or vertebral point tenderness. No Meningismus. Chest/axilla: Normal chest wall appearance and motion. Nontender with no deformity. No lesions are appreciated. Cardiovascular: Regular rate and rhythm with a normal S1 and S2. No gallops, murmurs, or rubs. Normal PMI, no JVD. No pulse deficits. Respiratory: Lungs have equal breath sounds bilaterally, clear to auscultation and percussion. No rales, rhonchi or wheezes noted. No increased work of breathing, no retractions or nasal flaring. Abdomen/GI: Soft, non-tender, with normal bowel sounds. No distension or tympany. No guarding or rebound. No evidence of tenderness throughout. Back: No spinal tenderness. No costovertebral tenderness. Full range of motion. Male : Normal genitalia with no discharge or lesions. Skin: Warm, dry with normal turgor. Normal color with no rashes, no lesions, and no evidence of cellulitis. Neuro: Awake and alert, GCS 15, oriented to person, place, time, and situation. Cranial nerves II-XII grossly intact. Motor strength 5/5 in all extremities. Sensory grossly intact. Cerebellar exam normal. Normal gait. Psych: Awake, alert, with orientation to person, place and time. Behavior, mood, and affect are within normal limits. 04:05 Musculoskeletal/extremity: ROM: intact in all extremities, full active range of motion, full passive range of motion, limited active range of motion, Circulation is intact in all extremities. Sensation intact. Compartment Syndrome exam of affected extremity: is normal. Weight bearing: able to fully bear weight, without difficulty, 04:23 ECG was reviewed by the Attending Physician. [facility] Vital Signs: 04:11 BP 134 / 74; Pulse 80; Resp 18; Temp 97.1; Pulse Ox 98% on R/A; Weight 90.72 kg; Height br2 6 ft. 2 in. ; Pain 10/10; 06:27 BP 107 / 55; Pulse 80; Resp 18; Pulse Ox 98% ; ha1 04:11 Body Mass Index 25.68 (90.72 kg, 187.96 cm) br2 04:11 Pain Scale: Adult br2 [place] Coma Score: 04:16 Eye Response: spontaneous(4). Motor Response: obeys commands(6). Verbal Response: br2 oriented(5). Total: 15. MDM: 04:01 Medical Screening Exam initiated flo 04:09 Differential diagnosis: drug overdose, cardiac arrhythmia, seizure, TIA. Data reviewed: [facility] vital signs, nurses notes, lab test result(s), CBC, electrolytes, hepatic panel. Consideration of Admission/Observation Escalation of care including admission/observation considered. I considered the following discharge prescriptions or medication management in the emergency department Medications were administered in the Emergency Department. See MAR. Independent interpretation of the following test(s) in the Emergency Department EKG: See my EKG interpretation above. Test considered but Not performed: MRI: no mri. Historians other than the Patient: EMS: EMS WELL INFORMED. Care significantly affected by the following chronic conditions: seizures, CHI. 05/13 04:04 Order name: Acetaminophen; Complete Time: 05:53 [facility] 05/13 04:04 Order name: Basic Metabolic Panel; Complete Time: 53 [facility] 05/13 04:04 Order name: CBC with Diff; Complete Time: 05:53 [facility] 05/13 04:04 Order name: ETOH Level; Complete Time: 05:53 [facility] 05/13 04:04 Order name: Hepatic Function; Complete Time: 05:53 [facility] 05/13 04:04 Order name: PT-INR; Complete Time: 05:53 [facility] 05/13 04:04 Order name: Ptt, Activated; Complete Time: 05:53 [facility] 05/13 04:04 Order name: Salicylate; Complete Time: 05:53 [facility] 05/13 04:05 Order name: CT Head C Spine 05/13 04:05 Order name: Knee Left 3 View XRAY 05/13 04:05 Order name: Knee Right 3 View XRAY 05/13 04:04 Order name: EKG - Nurse/Tech; Complete Time: 04:21 [facility] 05/13 04:04 Order name: IV Saline Lock; Complete Time: 04:12 [facility] 05/13 04:04 Order name: Labs collected and sent; Complete Time: 04:12 [facility] 05/13 04:05 Order name: Seizure Precautions; Complete Time: 04:56 [facility] EC:23 Rate is 73 beats/min. Rhythm is regular. QRS [place] is Normal. [place] interval is normal. QRS flo interval is normal. QT interval is normal. No Q waves. T waves are Normal. No ST changes noted. Clinical impression: NSR w/ Non-specific ST/T Changes and No evidence of ischemia. Interpreted by me. Reviewed by me. Administered Medications: 04:55 Drug: Ketorolac IVP 15 mg IVP once Route: IVP; Site: right antecubital; br2 06:31 Follow up: Response: No adverse reaction ha1 04:55 Drug: Ondansetron IVP 4 mg IVP once; over 2 minutes Route: IVP; Site: right antecubital;br2 06:31 Follow up: Response: No adverse reaction ha1 04:56 Drug: Keppra IV 1000 mg IV at per protocol once Route: IV; Rate: per protocol; Site: br2 right antecubital; 06:30 Follow up: Response: No adverse reaction; IV Status: Completed infusion ha1 04:56 Drug: Boostrix Tdap IM 0.5 ml IM once; as a single dose Route: IM; Site: right deltoid; br2 06:30 Follow up: Response: No adverse reaction ha1 04:56 Drug: NS 0.9% IV 1000 ml IV at 1 bolus Per protocol; to be given as a bolus over 60 br2 minutes Route: IV; Rate: 1 bolus; Site: right antecubital; 06:31 Follow up: Response: No adverse reaction; IV Status: Completed infusion ha1 04:56 Drug: Ativan IVP 1 mg IVP once Route: IVP; Site: right antecubital; br2 06:30 Follow up: Response: No adverse reaction ha1 04:56 Drug: Llbqahiy-Irkzsyevvg-Hhlrwuexf Topical Ointment 1 application Topical once Route: br2 Topical; Site: wound; 04:56 Drug: Keppra PO 500 mg PO once Route: PO; br2 06:31 Follow up: Response: No adverse reaction ha1 Disposition Summary: 05/13/24 06:18 Discharge Ordered Notes: Location: Home flo Problem: new flo Symptoms: have improved flo Condition: Stable flo Diagnosis - Epileptic seizures related to external causes, not intractable flo - Abrasion, left knee flo - Abrasion, right knee flo - Pain in left knee flo - Pain in right knee flo - Headache flo Followup: flo - With: Private Physician - When: 2 - 3 days - Reason: Recheck today's complaints, Continuance of care, Re-evaluation by your physician Followup: flo - With: Anthony Pierson MD - When: 2 - 3 days - Reason: Recheck today's complaints, Continuance of care, Re-evaluation by your physician Discharge Instructions: - Discharge Summary Sheet flo - Musculoskeletal Pain flo - Seizure, Adult flo - Acute Knee Pain, Adult flo Forms: - Medication Reconciliation Form flo - Antibiotic Education flo - Prescription Opioid Use flo - Patient Portal Instructions [facility] - Leadership Thank You Letter [facility] Prescriptions: - Keppra 750 mg Oral Tablet - take 1 tablet ORAL route every 12 hours; 20 tablet; Refills: 0, Product flo Selection Permitted Signatures: Dispatcher [employer] Gilberto Yoder MD MD cha Riddle, Belinda, RN RN br2 Lamar Robertson RN ha1 Corrections: (The following items were deleted from the chart) 04:05 04:05 ACETAMINOPHEN+C.LAB.BRZ ordered. EDMS EDMS 04:05 04:05 BASIC METABOLIC PANEL+C.LAB.BRZ ordered. EDMS EDMS 04:05 04:05 CBC+H.LAB.BRZ ordered. EDMS EDMS 04:05 04:05 ETHANOL+C.LAB.BRZ ordered. EDMS EDMS 04:05 04:05 HEPATIC FUNCTION+C.LAB.BRZ ordered. EDMS EDMS 04:05 04:05 PROTIME (+INR)+COAG.LAB.BRZ ordered. EDMS EDMS 04:05 04:05 PTT, ACTIVATED+COAG.LAB.BRZ ordered. EDMS EDMS 04:05 04:05 SALICYLATE+C.LAB.BRZ ordered. EDMS EDMS 04:05 04:05 Urinalysis+U.LAB.BRZ ordered. EDMS EDMS 04:05 04:05 URINE DRUG SCREEN+UC.LAB.BRZ ordered. EDMS EDMS 04:05 04:05 Head C Spine MPR Wo Con+CT.RAD.BRZ ordered. EDMS EDMS 04:05 04:05 Knee Left 3 View+RAD.RAD.BRZ ordered. EDMS EDMS 04:06 04:05 Knee Right 3 View+RAD.RAD.BRZ ordered. EDMS EDMS
--- NOTE | 2024-05-13 06:23 | RAD REPORT ---
CT HEAD AND CERVICAL SPINE WITHOUT CONTRAST INDICATION: Pain. COMPARISON: None TECHNIQUE: CT images of the head and cervical spine were obtained without contrast. Multiplanar refor mats were provided. Dose lowering techniques such as automated exposure control, iterative reconstruction, and mA and/or kV adjustment for patient size was utilized for this examination. FINDINGS: CT HEAD: PARENCHYMA: No acute arterial territory infarct or hemorrhage. No mass effect or midline shift. VENTRICLES: Normal in size for patient's age. EXTRA-AXIAL: No focal collection. Patent basilar cisterns. ORBITS: Unremarkable. BONES: No acute finding. PARANASAL SINUSES: clear. MASTOIDS/MIDDLE EARS: Clear. SOFT TISSUES: No acute findings. OTHER: None. CT CERVICAL SPINE: ALIGNMENT: Normal lordosis of the cervical spine. No spondylolisthesis. BONES: No acute fractures. No compression deformity. SPONDYLOSIS: Unremarkable. POSTERIOR FOSSA: Unremarkable. SOFT TISSUES: Unremarkable. LUNG APICES: Clear. OTHER: None. IMPRESSION: 1. No acute intracranial abnormality. 2. No acute findings in the cervical spine. Electronically signed by: Concetta Mars MD 05/13/2024 06:19 AM [facility] Due to temporary technical issues with the PACS/[employer] reporting system, reports are being van d by the in-house radiologist without review as a courtesy to ensure prompt reporting the interpreting radiologist is fully responsible for the content of the report. Transcribed Date/Time: 05/13/2024 6:22 AM
[2024-05-13 06:38] VITALS: BP 107/55; TEMP 97.1; O2SAT 98
--- NOTE | 2024-05-13 06:38 | RAD REPORT ---
EXAM DESCRIPTION: Knee Left 3 View (accession [id number]), Knee Right 3 View (accession [id number]) RadLex: XR KNEE 3 VIEWS LEFT, XR KNEE 3 VIEWS RIGHT CLINICAL HISTORY: 39 years Male, PAIN COMPARISON: None. FINDINGS: Right knee: No acute fracture or dislocation. The joint spaces are well preserved. There are no signi ficant degenerative changes. The soft tissues appear unremarkable. There is no foreign body. Left knee: No acute fracture or dislocation. The joint spaces are well preserved. There are no signif icant degenerative changes. The soft tissues appear unremarkable. There is no foreign body. IMPRESSION: 1. Normal x-ray of the left and right knee. Electronically signed by: Amari Oliver MD 05/13/2024 06:31 AM [facility] Due to temporary technical issues with the PACS/[employer] reporting system, reports are being van d by the in-house radiologist without review as a courtesy to ensure prompt reporting the interpreting radiologist is fully responsible for the content of the report. Transcribed Date/Time: 05/13/2024 6:38 AM
--- NOTE | 2024-05-13 06:38 | RAD REPORT ---
EXAM DESCRIPTION: Knee Left 3 View (accession [id number]), Knee Right 3 View (accession [id number]) RadLex: XR KNEE 3 VIEWS LEFT, XR KNEE 3 VIEWS RIGHT CLINICAL HISTORY: 39 years Male, PAIN COMPARISON: None. FINDINGS: Right knee: No acute fracture or dislocation. The joint spaces are well preserved. There are no signi ficant degenerative changes. The soft tissues appear unremarkable. There is no foreign body. Left knee: No acute fracture or dislocation. The joint spaces are well preserved. There are no signif icant degenerative changes. The soft tissues appear unremarkable. There is no foreign body. IMPRESSION: 1. Normal x-ray of the left and right knee. Electronically signed by: Amari Oliver MD 05/13/2024 06:31 AM [facility] Due to temporary technical issues with the PACS/[employer] reporting system, reports are being van d by the in-house radiologist without review as a courtesy to ensure prompt reporting the interpreting radiologist is fully responsible for the content of the report. Transcribed Date/Time: 05/13/2024 6:38 AM
--- NOTE | 2024-05-15 12:49 | EKG ---
Test Date: 2024-05-13 Test Time: 04:20:10 Child Specialist: JENNIFER MEASUREMENT RESULTS: Intervals: Rate: 73 CT: 162 QRSD: 82 QT: 358 QTc: 394 [place]: P: 76 CT: 162 QRS: 74 T: 64 INTERPRETIVE STATEMENTS: Normal sinus rhythm with sinus arrhythmia Normal ECG Compared to ECG 01/30/2023 08:30:52 No significant changes Electronically Signed On 05-15-24 12:43:44 [employer] by Yunior Reveles
== END 2024-05-13 06:30 | disposition home or self-care (01) ==
LOC: ER 04:00
DX: G40.509 Epileptic seizures related to external causes, not intractable, without status epilepticus (principal); S80.212A Abrasion, left knee, initial encounter; S80.211A Abrasion, right knee, initial encounter; M25.562 Pain in left knee; M25.561 Pain in right knee; R51.9 Headache, unspecified
CPT/HCPCS: 96365; 93005; 85025; 80048; 36415; 85610; 80076; 85730; 70450; 72125; 73562 ×2; 96375; 96372; 99284; 96366; 80143; 80179; 82077; J1953; J2405; J7030

== ENCOUNTER 2024-11-24 13:19 | Emergency (ER) | payer OTHER ==
--- OUTSIDE RECORDS SUMMARY | 2024-11-24 13:21 | XMS REPORT | Continuity of Care Document ---
Author Name Unknown Address [address] [place] [address] Organization [facility] [place] Address [address] [place] [address] Care Team Providers Care Host/Hostess Head Name Role Phone Nickie Cagle Primary Care Physician Doctor Unassigned, [place] Attending Clinician U navailable Adonis Haque Attending [...] different from the original. 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 Fungal [facility] Gastrostom y status Gastrostom y status Disease Active 09-24 00:00: 00 [facility] Myoclonus Myoclonus Disease Active 09-15 00:00: 00 [facility] Persistent vegetative state Persistent vegetative state Disease Active 09-15 00:00: 00 [facility] Other and unspecifie d special symptom or syndrome, not elsewhere classified Other and unspecifie d special symptom or syndrome, not elsewhere classified Disease Active 09-15 00:00: 00 Overview: Formattin g of this note might be different from the original. Agitation [facility] Allergies, Adverse Reactions, Alerts Allergy Name Allergy Type Status Severity Reaction(s) Onset Date Inactive Date Treating Clinician Comments Source NO KNOWN ALLERGIE S Drug Class Active [facility] Social History Social Habit Start Date Stop Date Quantity Comments Source Sex Assigned At 1985 00:00:00 1985 00:00:00 [facility] Smoking Status Start Date Stop Date Source Tobacco smoking consumption unknown [facility] Medications Ordered Medication Name Filled Medication Name Start Date Stop Date Current Medication? Ordering Clinician Indication Dosage Frequency Signature (SIG) Comments Components Source doxycycline hyclate 100 mg capsule 08-29 00:00: 00 Yes [id number] 100mg Take 1 capsule by mouth 2 (two) times daily. [facility] ibuprofen 600 mg tablet 08-29 00:00: 00 Yes [id number] 600mg Take 1 tablet by mouth every 6 (six) hours as needed for Pain (scale 4-6). [facility] ADVIL PM ORAL 11-03 14:35: 21 Yes None Entered [facility] TYLENOL 325 MG ORAL TAB 11-03 14:35: 20 Yes None Entered [facility] CARBAMAZEPI NE 300 MG ORAL CM12 11-03 00:00: 00 Yes take 3 tablets by mouth twice daily [facility] ZYPREXA 5 MG ORAL TAB 11-03 00:00: 00 Yes take one tablet twice daily [facility] TRIMETHOPRI M-SULFAMETH OXAZOLE 160-800 MG ORAL TAB 11-03 00:00: 00 Yes take one tablet twice a day for 7 days [facility] HYDROCODONE -ACETAMINOP HEN 7.5-325 MG ORAL TAB 10-01 00:00: 00 Yes Use as directed [facility] OLANZAPINE 5 MG ORAL TAB 10-01 00:00: 00 Yes Take 1 PO BID [facility] LEVOFLOXACI N 500 MG ORAL TAB 10-01 00:00: 00 Yes Take 1 daily for 3 days [facility] FLUCONAZOLE 200 MG ORAL TAB 10-01 00:00: 00 Yes Take 1 daily for 3 days [facility] LEVETIRACET AM 750 MG ORAL TAB 10-01 00:00: 00 Yes Take 2 via tube BID [facility] THIAMINE HCL 100 MG ORAL TAB 10-01 00:00: 00 Yes 1 Tab Enteral DAILY [facility] OXCARBAZEPI NE 300 MG ORAL TAB 10-01 00:00: 00 Yes 3 Tab Oral BID [facility] TRYPSIN-BAL FARNAZ-CASTOR OIL [id number] UNIT-MG-MG/ GRAM TOPICAL OINT 10-01 00:00: 00 Yes Topical BID [facility] FOLIC ACID 1 MG ORAL TAB 10-01 00:00: 00 Yes 1 Tab Oral DAILY [facility] MULTIVITAMI N ORAL LIQD 10-01 00:00: 00 Yes 5 mL Enteral DAILY [facility] CLONAZEPAM 2 MG ORAL TAB 10-01 00:00: 00 Yes 1 Tab Oral BID [facility] CLONAZEPAM 2 MG ORAL TAB 05-29 00:00: 00 Yes 2 Tab Oral Q6HA [facility] PROPRANOLOL 20 MG ORAL TAB 05-29 00:00: 00 Yes 1 Tab Oral BID [facility] Procedures Procedure Date / Time Performed Performing Clinician Source AUTHORIZATION FOR RELEASE OF PHI 2022-08-13 05:01:00 Doctor Unassigned, [place] [facility] Encounters Start Date/Time End Date/Time Encounter Type Admission Type Attending Clinicians Care Facility Care Department Encounter ID Source 2022-08-13 00:00:00 2022-08-13 00:00:00 Orders Only Doctor Unassigned, [place] [facility] [id number] [facility] 2019-08-29 22:18:14 2019-08-30 00:17:00 Emergency Adonis Ring [facility] [id number] 2019-08-29 22:18:14 2019-08-30 00:17:00 Emergency X MARÍA ELENA Adonis [facility] ERT [id number] [facility] 2019-08-29 00:00:00 2019-08-29 00:00:00 Orders Only Doctor Unassigned, [place] [facility] [id number]
[2024-11-24] MEDS ORDERED: NA CHLORIDE 0.9% 100 ML ONE (13:33)
[2024-11-24] MEDS ORDERED: NA CHLORIDE 0.9% 1,000 ML ONE (13:33)
[2024-11-24] MEDS ORDERED: LEVETIRACETAM 500 MG/5 ML VIAL IV ONE (13:33)
[2024-11-24 13:55] LABS: Absolute Lymphocytes (CBC) 1.1 K/uL (0.7-4.9); Hematocrit 46.5 % (39.6-49.0); Hemoglobin 15.4 g/dL (13.6-17.9); MCH 30.4 pg (27.0-35.0); MCHC 33.2 g/dL (32.0-36.0); MCV 91.5 fL (80-100); MPV 8.0 fL (7.6-11.3); Nucleated RBC Absolute Count 0.0 (0-0); Nucleated Red Blood Cells % 0.0 % (0-0); RBC Red Blood Cell Count 5.08 M/uL (4.33-5.43); White Blood Count 14.10 thou/uL (4.3-10.9)
[2024-11-24 14:10] LABS: Anion Gap 8.0 mEq/L (5.0-15.0); BUN Blood Urea Nitrogen 7.0 mg/dL (7-18); Glucose Level 110.0 mg/dL (74-106); Potassium 4.0 mEq/L (3.5-5.1)
[2024-11-24 14:21] LABS: White Blood Cell Scan OK (OK)
[2024-11-24 14:22] LABS: Blood Morphology Comment NOT SEEN (NOT SEEN)
--- NOTE | 2024-11-24 14:59 | RAD REPORT ---
EXAMINATION: Head Brain Wo Cont CLINICAL INDICATION: Male, 39 years old.seizure, head injury TECHNIQUE: Axial CT images from the skull base to the vertex without intravenous contrast. Coronal an d sagittal reformatted images were created from the data set. One or more of the following dose reduction techniques were used: Automated exposure control, adjustment of the mA and/or kV according to patient size, and/or iterative reconstruction. Unless otherwise specified, incidental findings do not require dedicated imaging follow-up. [id number]. COMPARISON: 01/30/2023 FINDINGS: INTRACRANIAL: No acute intracranial hemorrhage. No acute large vascular territory infarct. No hydroce phalus. No mass effect or midline shift. No significant white matter disease. VASCULATURE: No visualized abnormalities in the arteries or dural venous sinuses. SCALP/SKULL: No calvarial fracture identified. No acute soft tissue abnormality. Remote right medial orbital wall fracture. SINUSES: The visualized paranasal sinuses are mostly clear. No significant mastoid fluid. IMPRESSION: No acute intracranial abnormality.
--- NOTE | 2024-11-24 15:11 | RAD REPORT ---
EXAMINATION: Facial Bones W/ Mpr CLINICAL INDICATION: Male, 39 years old. fall after seizure, facial pain TECHNIQUE: Axial images were obtained through the facial bones and orbits without intravenous contras t. Sagittal and coronal reconstructions were created from the data. One or more of the following dose reduction techniques were used: Automated exposure control, adjustment of the mA and/or kV accor ding to patient size, and/or iterative reconstruction. Unless otherwise specified, incidental findings do not require dedicated imaging follow-up. [id number]. COMPARISON: No prior exams FINDINGS: SOFT TISSUE: No significant abnormalities. BONES: No evidence of fracture, dislocation, or aggressive osseous lesions. No lesion of the visuali zed skull base or calvarium. ORBITS: Remote right medial orbital wall fracture. No acute orbital fracture identified. SINUSES: The paranasal sinuses and tympanomastoid cavities are predominantly clear. BRAIN: No acute abnormalities in the visualized intracranial structures. IMPRESSION: No acute or significant abnormalities.
--- NOTE | 2024-11-24 15:17 | RAD REPORT ---
EXAM: Chest Single View HISTORY: 39 years Male seizure, fal COMPARISON: 12/02/2022 FINDINGS: LUNGS/PLEURA: The lungs are clear. No pleural effusions or pneumothorax. No pulmonary edema. CARDIAC/MEDIASTINUM: The cardiac silhouette is within normal limits. UPPER ABDOMEN: No significant abnormality. BONES: No acute abnormality. LINES/TUBES/OTHER: N/A IMPRESSION: No evidence of acute cardiopulmonary disease. No significant change from prior.
--- NOTE | 2024-11-24 16:26 | ER ---
Nurse's Notes [facility] Name: Raheem Feliz Age: 39 yrs Sex: Male : 1985 Arrival Date: 11/24/2024 Time: 13:19 Bed 7 Private MD: Diagnosis: Epileptic seizures related to external causes, not intractable, without status epilepticus Presentation: 11/24 13:23 Chief complaint: EMS states: Pt reports having 4 seizures over the last 24 hours, takes ph Keppra but has been "rationing it" and only taking it once a day. Post-ictal for EMS w/ stable VS. Coronavirus screen: Vaccine status: Patient reports being unvaccinated. Ebola Screen: No symptoms or risks identified at this time. Initial Sepsis Screen: Does the patient meet any 2 criteria? No. Patient's initial sepsis screen is negative. Does the patient have a suspected source of infection? No. Patient's initial sepsis screen is negative. Risk Assessment: Do you want to hurt yourself or someone else? Patient reports no desire to harm self or others. Onset of symptoms was November 24, 2024. 13:23 Method Of Arrival: EMS: [facility] 13:23 Acuity: BIBI 3 ph Triage Assessment: 13:53 General: Appears in no apparent distress. Behavior is calm, cooperative. Pain: ph Complains of pain in headache. Neuro: Level of Consciousness is awake, obeys commands, post ictal, Oriented to person, place, time, situation. Neuro: Reports headache Seizure activity reported prior to arrival. Patient is post-ictal at this time. Cardiovascular: Capillary refill < 3 seconds in bilateral fingers Patient's skin is warm and dry. Respiratory: Airway is patent Respiratory effort is even, unlabored. GI: Reports nausea. Derm: Skin is pink, warm \\T\\ dry. Musculoskeletal: Circulation, motion, and sensation intact. Range of motion: intact in all extremities. Historical: - Allergies: 13:52 No Known Drug Allergies; ph - Home Meds: 13:52 Keppra 750 mg Oral tablet 1 tab 2 times per day for Tonic-Clonic Epilepsy Treatment ph Adjunct [Active]; - PMHx: 13:52 Hypertensive disorder; Seizure; traumatic brain injury; ph - Immunization history:: Adult Immunizations unknown. - Infectious Disease History:: Denies. - Social history:: Smoking status: unknown. - Family history:: not pertinent. - Hospitalizations: : No recent hospitalization is reported. Screenin:55 [facility] ED Fall Risk Assessment (Adult) History of falling in the last 3 months, ph including since admission No falls in past 3 months (0 pts) Confusion or Disorientation No (0 pts) Intoxicated or Sedated No (0 pts) Impaired Gait No (0 pts) Mobility Assist Device Used No (0 pt) Altered Elimination No (0 pt) Score/Fall Risk Level 0 - 2 = Low Risk Oriented to surroundings, Maintained a safe environment, Hourly rounding (assess needs \\T\\ fall precautionary measures) done. Abuse screen: Denies threats or abuse. Denies injuries from another. Nutritional screening: No deficits noted. Tuberculosis screening: No symptoms or risk factors identified. Assessment: 13:55 General: SEE TRIAGE ASSESSMENT. ph 15:17 Reassessment: Patient appears in no apparent distress at this time. Patient and/or ph family updated on plan of care and expected duration. Pain level reassessed. Patient is alert, oriented x 3, equal unlabored respirations, skin warm/dry/pink. Vital Signs: 13:56 BP 150 / 73; Pulse 84; Resp 18; Pulse Ox 98% on R/A; ph 13:56 Weight 81.65 kg; Height 6 ft. 1 in. ; ph 15:16 BP 139 / 62; Pulse 79; Resp 18; Pulse Ox 100% on R/A; ph 16:30 BP 129 / 72; Pulse 75; Resp 18; Temp 97.5; Pulse Ox 98% on R/A; ph 13:56 Body Mass Index 23.75 (81.65 kg, 185.42 cm) ph [place] Coma Score: 13:53 Eye Response: spontaneous(4). Motor Response: obeys commands(6). Verbal Response: ph oriented(5). Total: 15. ED Course: 13:21 Patient arrived in ED. rn 13:21 Elvis Connelly MD is Attending Physician. rn 13:25 Triage completed. ph 13:52 Joan Reyez, YENI is Primary Nurse. ph 13:53 Arm band placed on. ph 13:55 Initial lab(s) drawn, by pa, sent to lab. Inserted saline lock: 20 gauge in right ph antecubital area, using aseptic technique. Blood collected. Flushed with 10 mL NS. 13:56 Patient has correct armband on for positive identification. Bed in low position. Call ph light in reach. Side rails up X2. Seizure precautions initiated. Pulse ox on. NIBP on. Door closed. Noise minimized. Lights dimmed. Warm blanket given. 13:57 Basic Metabolic Panel Sent. ph 14:51 CT Head Brain wo Cont In Process Unspecified. EDMS 14:51 CT Facial Bones W/O Con In Process Unspecified. EDMS 15:10 XRAY Chest (1 view) In Process Unspecified. EDMS 16:39 No provider procedures requiring assistance completed. IV discontinued, intact, ph bleeding controlled, No redness/swelling at site. Pressure dressing applied. Administered Medications: 13:57 Drug: NS 0.9% IV 1000 ml IV at 1000 ml once; to be given as a bolus over 60 minutes ph Route: IV; Rate: 1000 ml; Site: right antecubital; 15:00 Follow up: Response: No adverse reaction; IV Status: Completed infusion; IV Intake: ph 1000ml 13:57 Drug: Keppra IV 1000 mg IV at calculated rate once Route: IV; Rate: calculated rate; ph Site: right antecubital; 14:30 Follow up: Response: No adverse reaction; IV Status: Completed infusion ph Medication: 13:56 VIS not applicable for this client. ph Intake: 15:00 IV: 1000ml; Total: 1000ml. ph Outcome: 16:26 Discharge ordered by . rn 16:39 Discharged to home ambulatory, ph 16:39 Condition: good 16:39 Discharge instructions given to patient, Instructed on discharge instructions, follow up and referral plans. medication usage, Demonstrated understanding of instructions, follow-up care, medications, Prescriptions given X 1, 16:43 Patient left the ED. ph Signatures: Dispatcher [employer] Elvis Correa MD MD rn Hall, Patricia, RN RN ph
--- NOTE | 2024-11-24 16:26 | EDPHYS ---
Physician Documentation [facility] Name: Raheem Feliz Age: 39 yrs Sex: Male : 1985 Arrival Date: 11/24/2024 Time: 13:19 Bed 7 Private MD: ED Physician Elvis Connelly HPI: 11/24 14:19 This 39 yrs old Male presents to ER via EMS with complaints of Seizure. rn 14:19 Patient brought in by EMS for seizures. Has had multiple seizures in the last 24 hours. rn Patient states due to insurance issues he has been trying to stretch his Keppra and not taking it twice a day, takes it once a day sometimes does not take it. Did not take it today. Has had 3 or 4 individual seizures hours apart from each other. On last seizure patient fell either from standing or sitting position and hit head. Patient reports headache and facial pain. No extremity injury. No neck or back pain. No chest pain. No abdominal pain.. Historical: - Allergies: 13:52 No Known Drug Allergies; ph - Home Meds: 13:52 Keppra 750 mg Oral tablet 1 tab 2 times per day for Tonic-Clonic Epilepsy Treatment ph Adjunct [Active]; - PMHx: 13:52 Hypertensive disorder; Seizure; traumatic brain injury; ph - Immunization history:: Adult Immunizations unknown. - Infectious Disease History:: Denies. - Social history:: Smoking status: unknown. - Family history:: not pertinent. - Hospitalizations: : No recent hospitalization is reported. ROS: 14:19 Constitutional: Negative for fever, chills, and weight loss, Neck: Negative for injury, rn pain, and swelling, Cardiovascular: Negative for chest pain, palpitations, and edema, Respiratory: Negative for shortness of breath, cough, wheezing, and pleuritic chest pain, Abdomen/GI: Negative for abdominal pain, nausea, vomiting, diarrhea, and constipation, Back: Negative for injury and pain, : Negative for injury, bleeding, discharge, and swelling, MS/Extremity: Negative for injury and deformity, Skin: Negative for injury, rash, and discoloration, Neuro: Positive for headache and seizure Exam: 14:19 Constitutional: This is a well developed, well nourished patient who is awake, alert, rn and in no acute distress. Head/Face: Normocephalic, atraumatic. No focal pain. ENT: Superficial tongue laceration, no active bleeding, does not gape open. Does not need sutures. Dry mucous membranes Neck: No midline cervical tenderness Cardiovascular: Regular rate and rhythm. No pulse deficits. Respiratory: No increased work of breathing, no retractions or nasal flaring. Abdomen/GI: Soft, non-tender Back: No spinal tenderness. No costovertebral tenderness. Full range of motion. MS/ Extremity: Pulses equal, no cyanosis. Full range of motion of all 4 extremities without pain Neuro: Awake and alert, GCS 15, oriented to person, place, time, and situation. Motor strength 5/5 in all extremities. Sensory grossly intact. 15:56 ECG was reviewed by the Attending Physician. rn Vital Signs: 13:56 BP 150 / 73; Pulse 84; Resp 18; Pulse Ox 98% on R/A; ph 13:56 Weight 81.65 kg; Height 6 ft. 1 in. ; ph 15:16 BP 139 / 62; Pulse 79; Resp 18; Pulse Ox 100% on R/A; ph 16:30 BP 129 / 72; Pulse 75; Resp 18; Temp 97.5; Pulse Ox 98% on R/A; ph 13:56 Body Mass Index 23.75 (81.65 kg, 185.42 cm) ph [place] Coma Score: 13:53 Eye Response: spontaneous(4). Motor Response: obeys commands(6). Verbal Response: ph oriented(5). Total: 15. MDM: 13:21 Medical Screening Exam initiated rn 16:24 Differential diagnosis: seizure, Medication noncompliance. Data reviewed: vital signs, rn nurses notes, lab test result(s), radiologic studies, CT scan, and as a result, I will discharge patient. Independent interpretation of the following test(s) in the Emergency Department CT Scan: My interpretation is CT head images negative for acute hemorrhage per my interpretation. Test considered but Not performed: Other Details EEG not available. Historians other than the Patient: EMS: EMS gave majority of story as patient was postictal upon arrival. Care significantly affected by the following chronic conditions: Epilepsy, traumatic brain injury, hypertension. Counseling: I had a detailed discussion with the patient and/or guardian regarding the historical points, exam findings, and any diagnostic results supporting the discharge/admit diagnosis, the presence of at least one elevated blood pressure reading (>120/80) during this emergency department visit, lab results, radiology results, the need for outpatient follow up, to return to the emergency department if symptoms worsen or persist or if there are any questions or concerns that arise at home. Response to treatment: the patient's symptoms have markedly improved after treatment, the patient's symptoms have resolved after treatment, the patient's condition has returned to base line, the patient is now symptom free, patient is well hydrated. and as a result, I will discharge patient. Special discussion: I discussed with the patient/guardian in detail that at this point there is no indication for admission to the hospital. It is understood, however, that if the symptoms persist or worsen the patient needs to return immediately for re-evaluation. Based on the history and exam findings, there is no indication for further emergent testing or inpatient evaluation. I discussed with the patient/guardian the need to see the neurologist for further evaluation of the symptoms. I discussed with the patient/guardian the need to see the primary care provider for further evaluation of the symptoms. 11/24 13: Order name: CBC with Diff; Complete Time: 14:23 rn 11/24 13:23 Order name: Basic Metabolic Panel; Complete Time: 14:19 rn 11/24 13:58 Order name: CBC Smear Scan; Complete Time: 14: EDMS 11/24 13: Order name: CT Head Brain wo Cont; Complete Time: 15:00 rn 11/24 13:23 Order name: CT Facial Bones W/O Con; Complete Time: 15:50 rn 11/24 13: Order name: XRAY Chest (1 view); Complete Time: 15:50 rn 11/24 13: Order name: IV Start; Complete Time: 13:57 rn EC:56 Rate is 68 beats/min. Rhythm is regular. QRS [place] is Normal. HI interval is normal. QRS rn interval is normal. No Q waves. T waves are Normal. No ST changes noted. Clinical impression: NSR w/ Non-specific ST/T Changes. Interpreted by me. Reviewed by me. Administered Medications: :57 Drug: NS 0.9% IV 1000 ml IV at 1000 ml once; to be given as a bolus over 60 minutes ph Route: IV; Rate: 1000 ml; Site: right antecubital; 15:00 Follow up: Response: No adverse reaction; IV Status: Completed infusion; IV Intake: ph 1000ml 13:57 Drug: Keppra IV 1000 mg IV at calculated rate once Route: IV; Rate: calculated rate; ph Site: right antecubital; 14:30 Follow up: Response: No adverse reaction; IV Status: Completed infusion ph Disposition Summary: 11/24/24 16:26 Discharge Ordered Notes: Location: Home rn Problem: chronic rn Symptoms: have improved rn Condition: Stable rn Diagnosis - Epileptic seizures related to external causes, not intractable, without status rn epilepticus Followup: rn - With: Private Physician - When: As needed - Reason: Recheck today's complaints, Re-evaluation by your physician Discharge Instructions: - Discharge Summary Sheet rn - Epilepsy rn - Seizure, Adult rn Forms: - Medication Reconciliation Form rn - Antibiotic rn integrated - Prescription Opioid Use rn - Patient Portal Instructions rn - Leadership Thank You Letter rn Prescriptions: - Keppra 750 mg Oral tablet - take 1 tablet ORAL route every 12 hours; 60 tablet; Refills: 0, Product rn Selection Permitted Signatures: Dispatcher [employer] EDElvis Lala MD MD rn Hall, Patricia, RN RN ph Corrections: (The following items were deleted from the chart) 13:23 13:23 Chest Single View+[email or web address] ordered. [facility] 14:22 14:19 Constitutional: This is a well developed, well nourished patient who is awake, rn alert, and in no acute distress. Head/Face: Normocephalic, atraumatic. No focal pain. ENT: Superficial tongue laceration, no active bleeding, does not gape open. Does not need sutures. Dry mucous membranes Neck: No midline cervical tenderness Cardiovascular: Regular rate and rhythm. No pulse deficits. Respiratory: No increased work of breathing, no retractions or nasal flaring. Abdomen/GI: Soft, non-tender MS/ Extremity: Pulses equal, no cyanosis. Full range of motion of all 4 extremities without pain Neuro: Awake and alert, GCS 15, oriented to person, place, time, and situation. Motor strength 5/5 in all extremities. Sensory grossly intact. rn
[2024-11-24 17:25] VITALS: BP 129/72; TEMP 97.5; O2SAT 98
== END 2024-11-24 16:43 | disposition home or self-care (01) ==
LOC: ER 13:19
DX: G40.509 Epileptic seizures related to external causes, not intractable, without status epilepticus (principal)
CPT/HCPCS: 96365; 85025; 80048; 36415; 70450; 70486; 76377; 71045; 99284; J1953; J7030